=== PATIENT | female | born 1930 | race Caucasian/White ===

== ENCOUNTER 2016-11-25 06:34 | Emergency (ER) | payer MEDICARE, BC ==
[2016-11-25] MEDS ORDERED: Diltiazem 25 MG/5 ML SDV IVPUSH ONE ×2 (06:50→07:17)
[2016-11-25] MEDS ORDERED: Digoxin 500 MCG/2 ML Amp IVPUSH ONE (07:15)
[2016-11-25] MEDS ORDERED: Potassium Chloride 20 MEQ Tab.ER PO ONE (07:39)
--- NOTE | 2016-11-25 07:40 | EDM.PDOC ---
<Herminio Dash - Last Filed: 12/04/16 06:59> ED HISTORY OF PRESENT ILLNESS - General Chief Complaint: Chest Pain Stated Complaint: CHEST PAIN Time Seen by Provider: 11/25/16 06:34 - Related Data Allergies/ADRs: Allergies Allergy/AdvReac Type Severity Reaction Status Date / Time adhesive Allergy Intermediate Hives Verified 09/07/16 03:16 striadril eye cream Allergy Intermediate Swollen Uncoded 10/01/15 11:33 Eyes Home Meds: Home Meds Aspirin [Ecotrin] 81 mg PO DAILY 09/28/15 [History] Budesonide/Formoterol [Symbicort 160-4.5 MCG] 2 puff INH BID 09/28/15 [History] Calcium Citrate 600 mg PO BID 09/28/15 [History] Cholecalciferol (Vitamin D3) [Vitamin D3] 1,000 units PO BID 09/28/15 [History] Hydrochlorothiazide 25 mg PO DAILY 09/28/15 [History] Levothyroxine [Synthroid] 50 mcg PO DAILY 09/28/15 [History] Lovastatin [Mevacor] 40 mg PO DAILY 09/28/15 [History] Potassium Chloride [Klor-Con 10] 10 meq PO DAILY 09/07/16 [History] Apixaban [Eliquis] 2.5 mg PO BID #60 tablet 09/09/16 [Rx] Diltiazem HCl [Cardizem] 120 mg PO DAILY #30 tablet 09/09/16 [Rx] Atenolol 25 mg PO BID #30 tablet 09/15/16 [Rx] Digoxin [Lanoxin] 125 mcg PO DAILY #15 tablet 11/25/16 [Rx] Past Medical History HEENT History: Reports: Hard of hearing, Impaired vision Other HEENT History: wears glasses, tongue lesions and papilloma Cardiovascular History: Reports: Afib, High cholesterol, Hypertension, Other ( see below) Other Cardiovascular History: secundum atrial septal defect, chronic venous insufficiency, varicose veins Respiratory History: Reports: COPD, Sleep apnea Other Respiratory History: uses CPAP Gastrointestinal History: Reports: GERD, Hemorrhoids Genitourinary History: Reports: Urinary incontinence Other Genitourinary History: hematuria SOAPSTONER History: Reports: Other (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 Psychiatric History: Reports: Dementia Endocrine/Metabolic History: Reports: Hypothyroidism, Obesity/BMI 30+ Hematologic History: Reports: Blood transfusion(s) Other Dermatologic History: rash to hands, - Infectious Disease History Infectious Disease History: Reports: Measles, MRSA, Mumps - Past Surgical History HEENT Surgical History: Reports: Cataract surgery GI Surgical History: Reports: Appendectomy, Cholecystectomy Female Surgical History: Reports: Breast biopsy, Hysterectomy Other Endocrine Surgeries/Procedures: thyroid lesion Neurological Surgical History: Reports: Lumbar spine Musculoskeletal Surgical History: Reports: Carpal tunnel, Knee replacement Oncologic Surgical History: Reports: Biopsy of breast Social & Family History - Family History Family Medical History: Noncontributory Endocrine/Metabolic: Reports: Diabetes, type I Oncologic: Reports: Bladder, Lung, Pancreatic - Tobacco Use Smoking Status *Q: Never Smoker Second Hand Smoke Exposure: No - Caffeine Use Caffeine Use: Reports: Coffee - Recreational Drug Use Recreational Drug Use: No Drug Use in Last 12 Months: No - Living Situation & Occupation Living situation: Reports: , with spouse 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8) fl MCH 28.8 (25.6-32.2) pg MCHC 32.5 (32.2-35.5) g/dl RDW Std Deviation 44.7 (36.4-46.3) fL Plt Count 185 (182-369) K/mm3 MPV 10.7 (9.4-12.3) fl Neutrophils % (Manual) 58 (40-60) % Band Neutrophils % 0 (0-10) % Lymphocytes % (Manual) 32 (20-40) % Atypical Lymphs % 0 % Monocytes % (Manual) 10 (2-10) % Eosinophils % (Manual) 0 L (0.7-5.8) % Basophils % (Manual) 0 L (0.1-1.2) Platelet Estimate Adequate RBC Morph Comment Normal Sodium 142 (136-145) mEq/L Potassium 3.3 L (3.5-5.1) mEq/L Chloride 103 (98-107) mEq/L Carbon Dioxide 29 (21-32) mEq/L Anion Gap 13.3 (5-15) BUN 13 (7-18) mg/dL Creatinine 0.8 (0.55-1.02) mg/dL Est Cr Clr Drug Dosing TNP Estimated GFR (MDRD) > 60 (>60) mL/min BUN/Creatinine Ratio 16.3 (14-18) Glucose 108 (83-115) mg/dL Calcium 9.8 (8.5-10.1) mg/dL Magnesium 2.2 (1.8-2.4) mg/dl Total Bilirubin 1.7 H (0.2-1.0) mg/dL AST 20 (15-37) U/L ALT 28 (14-59) U/L Alkaline Phosphatase 77 (46-116) U/L Troponin I < 0.017 (0.00-0.056) ng/mL B-Natriuretic Peptide 132 H (0-100) pg/mL Total Protein 7.7 (6.4-8.2) g/dl Albumin 3.9 (3.4-5.0) g/dl Globulin 3.8 gm/dL Albumin/Globulin Ratio 1.0 (1-2) Meds: Medications Discontinued Medications Generic Name Dose Route Start Last Admin Trade Name Freq PRN Reason Stop Dose Admin Digoxin 500 mcg 11/25/16 07:15 11/25/16 07:44 Lanoxin IVPUSH 11/25/16 07:16 500 mcg ONETIME ONE Administration Diltiazem HCl 20 mg 11/25/16 06:50 11/25/16 06:55 Diltiazem IVPUSH 11/25/16 06:51 10 mg ONETIME ONE Administration Diltiazem HCl 10 mg 11/25/16 07:17 11/25/16 07:27 Diltiazem IVPUSH 11/25/16 07:18 10 mg ONETIME ONE Administration Potassium Chloride 20 meq 11/25/16 07:39 11/25/16 07:44 Klor-Con M20 PO 11/25/16 07:40 20 meq ONETIME ONE Administration - Re-Assessments/Exams Free Text/Narrative Re-Assessment/Exam: 11/25/16 09:[address] Cerna at change of shift. Labs are back. White count of 9.50 with a normal differential hemoglobin is 14.7 hematocrit is 45.2 platelets 185,000. Chemistry shows a sodium of 142 potassium of 3.3. BP was 132 bilirubin is mildly elevated 1.7 suggesting Gilbert`s syndrome. Patient has now converted back to sinus rhythm at 62 per minute BP 111/55. Plan will be to discharge her on low-dose digoxin 0.0625 mg once daily in addition to her current medications to see if we can maintain sinus rhythm. Departure - Departure Time of Disposition: 09:08 Disposition: Home, Self-Care 01 Condition: fair Clinical Impression: Paroxysmal atrial fibrillation with rapid ventricular response Prescriptions: Digoxin [Lanoxin] 125 mcg PO DAILY #15 tablet Instructions: Atrial Fibrillation, [id number] Referrals: Adam Street MD [Primary Care Provider] - Forms: ED Department Discharge Additional Instructions: The above patient was seen for Rehab therapy. The following progress is noted in regards to this patient. Patient was seen for a total of visit(s). Date of first visit: Date of last visit: Patient was treated for: Treatment Included: ED HISTORY OF PRESENT ILLNESS - General Chief Complaint: Chest Pain Stated Complaint: CHEST PAIN - Related Data Allergies/ADRs: Allergies Allergy/AdvReac Type Severity Reaction Status Date / Time adhesive Allergy Intermediate Hives Verified 09/07/16 03:16 striadril eye cream Allergy Intermediate Swollen Uncoded 10/01/15 11:33 Eyes Home Meds: Home Meds Aspirin [Ecotrin] 81 mg PO DAILY 09/28/15 [History] Budesonide/Formoterol [Symbicort 160-4.5 MCG] 2 puff INH BID 09/28/15 [History] Calcium Citrate 600 mg PO BID 09/28/15 [History] Cholecalciferol (Vitamin D3) [Vitamin D3] 1,000 units PO BID 09/28/15 [History] Hydrochlorothiazide 25 mg PO DAILY 09/28/15 [History] Levothyroxine [Synthroid] 50 mcg PO DAILY 09/28/15 [History] Lovastatin [Mevacor] 40 mg PO DAILY 09/28/15 [History] Potassium Chloride [Klor-Con 10] 10 meq PO DAILY 09/07/16 [History] Apixaban [Eliquis] 2.5 mg PO BID #60 tablet 09/09/16 [Rx] Diltiazem HCl [Cardizem] 120 mg PO DAILY #30 tablet 09/09/16 [Rx] Atenolol 25 mg PO BID #30 tablet 09/15/16 [Rx] Digoxin [Lanoxin] 125 mcg PO DAILY #15 tablet 11/25/16 [Rx] Past Medical History HEENT History: Reports: Hard of hearing, Impaired vision Other HEENT History: wears glasses, tongue lesions and papilloma Cardiovascular History: Reports: Afib, High cholesterol, Hypertension, Other ( see below) Other Cardiovascular History: secundum atrial septal defect, chronic venous insufficiency, varicose veins Respiratory History: Reports: COPD, Sleep apnea Other Respiratory History: uses CPAP Gastrointestinal History: Reports: GERD, Hemorrhoids Genitourinary History: Reports: Urinary incontinence Other Genitourinary History: hematuria SOAPSTONER History: Reports: Other (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 Psychiatric History: Reports: Dementia Endocrine/Metabolic History: Reports: Hypothyroidism, Obesity/BMI 30+ Hematologic History: Reports: Blood transfusion(s) Other Dermatologic History: rash to hands, - Infectious Disease History Infectious Disease History: Reports: Measles, MRSA, Mumps - Past Surgical History HEENT Surgical History: Reports: Cataract surgery GI Surgical History: Reports: Appendectomy, Cholecystectomy Female Surgical History: Reports: Breast biopsy, Hysterectomy Other Endocrine Surgeries/Procedures: thyroid lesion Neurological Surgical History: Reports: Lumbar spine Musculoskeletal Surgical History: Reports: Carpal tunnel, Knee replacement Oncologic Surgical History: Reports: Biopsy of breast Social & Family History - Family History Family Medical History: Noncontributory Endocrine/Metabolic: Reports: Diabetes, type I Oncologic: Reports: Bladder, Lung, Pancreatic - Tobacco Use Smoking Status *Q: Never Smoker Second Hand Smoke Exposure: No - Caffeine Use Caffeine Use: Reports: Coffee - Recreational Drug Use Recreational Drug Use: No Drug Use in Last 12 Months: No - Living Situation & Occupation Living situation: Reports: , with spouse Occupation: retired Course - Vital Signs Last Recorded V/S: Last Vital Signs Temp 36.2 C 11/25/16 06:42 Pulse 132 H 11/25/16 07:44 Resp 24 H 11/25/16 06:42 BP 135/71 11/25/16 06:42 Pulse Ox 93 L 11/25/16 06:42 - Orders/Labs/Meds Orders: Active Orders 24 hr Category Date Time Status EKG 12 Lead [EKG Documentation Completion] [RC] STAT Care 11/25/16 06:53 Active Chest 1V Frontal [CR] Stat Exams 11/25/16 07:00 Taken Labs: Laboratory Tests 11/25/16 11/25/16 11/25/16 Range/Units 06:00 06:40 06:40 WBC 9.50 (3.98-10.04) K/mm3 RBC 5.11 (3.98-5.22) M/mm3 Hgb 14.7 (11.2-15.7) gm/L Hct 45.2 H (34.1-44.9) % MCV 88.5 (79.4-94.8) fl MCH 28.8 (25.6-32.2) pg MCHC 32.5 (32.2-35.5) g/dl RDW Std Deviation 44.7 (36.4-46.3) fL Plt Count 185 (182-369) K/mm3 MPV 10.7 (9.4-12.3) fl Neutrophils % (Manual) 58 (40-60) % Band Neutrophils % 0 (0-10) % Lymphocytes % (Manual) 32 (20-40) % Atypical Lymphs % 0 % Monocytes % (Manual) 10 (2-10) % Eosinophils % (Manual) 0 L (0.7-5.8) % Basophils % (Manual) 0 L (0.1-1.2) Platelet Estimate Adequate RBC Morph Comment Normal Sodium 142 (136-145) mEq/L Potassium 3.3 L (3.5-5.1) mEq/L Chloride 103 (98-107) mEq/L Carbon Dioxide 29 (21-32) mEq/L Anion Gap 13.3 (5-15) BUN 13 (7-18) mg/dL Creatinine 0.8 (0.55-1.02) mg/dL Est Cr Clr Drug Dosing TNP Estimated GFR (MDRD) > 60 (>60) mL/min BUN/Creatinine Ratio 16.3 (14-18) Glucose 108 (83-115) mg/dL Calcium 9.8 (8.5-10.1) mg/dL Magnesium 2.2 (1.8-2.4) mg/dl Total Bilirubin 1.7 H (0.2-1.0) mg/dL AST 20 (15-37) U/L ALT 28 (14-59) U/L Alkaline Phosphatase 77 (46-116) U/L Troponin I < 0.017 (0.00-0.056) ng/mL B-Natriuretic Peptide 132 H (0-100) pg/mL Total Protein 7.7 (6.4-8.2) g/dl Albumin 3.9 (3.4-5.0) g/dl Globulin 3.8 gm/dL Albumin/Globulin Ratio 1.0 (1-2) Meds: Medications Discontinued Medications Generic Name Dose Route Start Last Admin Trade Name Pedroq PRN Reason Stop Dose Admin Digoxin 500 mcg 11/25/16 07:15 11/25/16 07:44 Lanoxin IVPUSH 11/25/16 07:16 500 mcg ONETIME ONE Administration Diltiazem HCl 20 mg 11/25/16 06:50 11/25/16 06:55 Diltiazem IVPUSH 11/25/16 06:51 10 mg ONETIME ONE Administration Diltiazem HCl 10 mg 11/25/16 07:17 11/25/16 07:27 Diltiazem IVPUSH 11/25/16 07:18 10 mg ONETIME ONE Administration Potassium Chloride 20 meq 11/25/16 07:39 11/25/16 07:44 Klor-Con M20 PO 11/25/16 07:40 20 meq ONETIME ONE Administration - Re-Assessments/Exams Free Text/Narrative Re-Assessment/Exam: 11/25/16 09:07 labs are back and we will a white count of 9.50 with a normal differential hemoglobin is 14.7 hematocrit is 45.2 platelets 185,000. Chemistry shows a sodium of 142 potassium of 3.3. BP was 132 bilirubin is mildly elevated 1.7 suggesting Gilbert`s syndrome. Patient is now converted back to sinus rhythm at 62 per minute BP 111/55. Plan will be to discharge her on low-dose digoxin 0.0625 mg once daily in addition to her current medications to see if we can maintain sinus rhythm. Departure - Departure Time of Disposition: :08 Disposition: Home, Self-Care 01 Condition: fair Clinical Impression: Paroxysmal atrial fibrillation with rapid ventricular response Prescriptions: Digoxin [Lanoxin] 125 mcg PO DAILY #15 tablet Forms: ED Department Discharge Evaluation in the emergency room this morning in regards to recurrent bouts of atrial fibrillation with a rapid heart rate. This is occurred 3 times in the last 3 months. Lab tests revealed only a borderline low potassium at 3.3 but otherwise was within normal limits. Heart rate was controlled initially with Cardiazem intravenous bolus medications 10 mg x2 doses. You're also given a dose of digoxin 0.5 mg IV. After another hour your heart converted back to regular sinus rhythm at 62 per minute. The only changes to medications and be the addition of low-dose digoxin or Lanoxin tablet one half 0.125 mg tablet daily to try and prevent her from going back into atrial fibrillation. Followup with Dr. Richard on as planned. He is okay to stay off alcohol is as planned today and tomorrow to allow dental procedure in 2 days time. <Emerson Cerna - Last Filed: 12/08/16 07:18> ED HISTORY OF PRESENT ILLNESS - History of Present Illness INITIAL COMMENTS - FREE TEXT/NARRATIVE: 86-year-old female presents emergency room with palpitations chest discomfort. Onset of this is sometime during the night. He has a history of fibrillation and is treated on Eliquis. Discomfort is substernal does not radiate no associated nausea vomiting diaphoresis or shortness of breath. Patient does not have a worsening cough. Patient felt well yesterday. ED ROS GENERAL - Review of Systems Review Of Systems: See Below Constitutional: Reports: no symptoms HEENT: Reports: No symptoms Respiratory: Reports: No Symptoms Cardiovascular: Reports: Chest pain, Palpitations GI/Abdominal: Reports: No symptoms : Reports: no symptoms Neurological: Reports: No Symptoms ED EXAM, GENERAL - Physical Exam Exam: See Below Exam Limited By: No limitations General Appearance: alert, no apparent distress Head: atraumatic, normocephalic Neck: normal inspection, supple, non-tender, full range of motion. No: lymphadenopathy (L), lymphadenopathy (R) Respiratory/Chest: no respiratory distress, lungs clear, normal breath sounds Cardiovascular: no murmur, irregularly irregular GI/Abdominal: normal bowel sounds, soft, non tender, no organomegaly, no distention, no abnormal bruit, no mass
--- NOTE | 2016-11-25 07:44 | EDM.PDOC ---
[id number] CHEST PAIN Time Seen by Provider: 11/25/16 06:47 - History of Present Illness INITIAL COMMENTS - FREE TEXT/NARRATIVE: 86-year-old female presents emergency room with chest discomfort palpitations and a rapid heartbeat. Patient has had problems with this in the past she has a known diagnosis of recurrent atrial fibrillation she is on Eliquis. However she is postop her Eliquis today for a dental procedure coming up in the near future. At this time the patient has some chest discomfort she says this is getting better about the time she comes in the emergency room. She is not sure exactly what time this started but it was sometime after midnight. It is not associated with nausea vomiting no appreciable shortness of breath. Patient has not had worsening swelling of her lower extremities. - Related Data Allergies/ADRs: Allergies Allergy/AdvReac Type Severity Reaction Status Date / Time adhesive Allergy Intermediate Hives Verified 09/07/16 03:16 striadril eye cream Allergy Intermediate Swollen Uncoded 10/01/15 11:33 Eyes Home Meds: Home Meds Aspirin [Ecotrin] 81 mg PO DAILY 09/28/15 [History] Budesonide/Formoterol [Symbicort 160-4.5 MCG] 2 puff INH BID 09/28/15 [History] Calcium Citrate 600 mg PO BID 09/28/15 [History] Cholecalciferol (Vitamin D3) [Vitamin D3] 1,000 units PO BID 09/28/15 [History] Hydrochlorothiazide 25 mg PO DAILY 09/28/15 [History] Levothyroxine [Synthroid] 50 mcg PO DAILY 09/28/15 [History] Lovastatin [Mevacor] 40 mg PO DAILY 09/28/15 [History] Potassium Chloride [Klor-Con 10] 10 meq PO DAILY 09/07/16 [History] Apixaban [Eliquis] 2.5 mg PO BID #60 tablet 09/09/16 [Rx] Diltiazem HCl [Cardizem] 120 mg PO DAILY #30 tablet 09/09/16 [Rx] Atenolol 25 mg PO BID #30 tablet 09/15/16 [Rx] Digoxin [Lanoxin] 125 mcg PO DAILY #15 tablet 11/25/16 [Rx] Past Medical History HEENT History: Reports: Hard of hearing, Impaired vision Other HEENT History: wears glasses, tongue lesions and papilloma Cardiovascular History: Reports: Afib, High cholesterol, Hypertension, Other ( see below) Other Cardiovascular History: secundum atrial septal defect, chronic venous insufficiency, varicose veins Respiratory History: Reports: COPD, Sleep apnea Other Respiratory History: uses CPAP Gastrointestinal History: Reports: GERD, Hemorrhoids Genitourinary History: Reports: Urinary incontinence Other Genitourinary History: hematuria 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 Psychiatric History: Reports: Dementia Endocrine/Metabolic History: Reports: Hypothyroidism, Obesity/BMI 30+ Hematologic History: Reports: Blood transfusion(s) Other Dermatologic History: rash to hands, - Infectious Disease History Infectious Disease History: Reports: Measles, MRSA, Mumps - Past Surgical History HEENT Surgical History: Reports: Cataract surgery GI Surgical History: Reports: Appendectomy, Cholecystectomy Female Surgical History: Reports: Breast biopsy, Hysterectomy Other Endocrine Surgeries/Procedures: thyroid lesion Neurological Surgical History: Reports: Lumbar spine Musculoskeletal Surgical History: Reports: Carpal tunnel, Knee replacement Oncologic Surgical History: Reports: Biopsy of breast Social & Family History - Family History Family Medical History: Noncontributory Endocrine/Metabolic: Reports: Diabetes, type I Oncologic: Reports: Bladder, Lung, Pancreatic - Tobacco Use Smoking Status *Q: Never Smoker Second Hand Smoke Exposure: No - Caffeine Use Caffeine Use: Reports: Coffee - Recreational Drug Use Recreational Drug Use: No Drug Use in Last 12 Months: No - Living Situation & Occupation Living situation: Reports: , with spouse Occupation: retired ED ROS GENERAL - Review of Systems Review Of Systems: See Below Constitutional: Reports: no symptoms HEENT: Reports: No symptoms Respiratory: Reports: No Symptoms Cardiovascular: Reports: Chest pain, Palpitations. Denies: Syncope GI/Abdominal: Reports: No symptoms : Reports: no symptoms Neurological: Reports: No Symptoms ED EXAM, GENERAL - Physical Exam Exam: See Below Exam Limited By: No limitations General Appearance: alert, no apparent distress, other Head: atraumatic, normocephalic Neck: normal inspection, supple, non-tender, full range of motion. No: lymphadenopathy (L), lymphadenopathy (R) Respiratory/Chest: no respiratory distress, lungs clear, normal breath sounds Cardiovascular: no murmur, tachycardia, irregularly irregular GI/Abdominal: normal bowel sounds, soft, non tender Course - Vital Signs Last Recorded V/S: Last Vital Signs Temp 36.2 C 11/25/16 06:42 Pulse 63 11/25/16 10:00 Resp 18 11/25/16 10:00 BP 108/58 L 11/25/16 10:00 Pulse Ox 93 L 11/25/16 10:00 - Orders/Labs/Meds Labs: Laboratory Tests 11/25/16 11/25/16 11/25/16 Range/Units 06:00 06:40 06:40 WBC 9.50 (3.98-10.04) K/mm3 RBC 5.11 (3.98-5.22) M/mm3 Hgb 14.7 (11.2-15.7) gm/L Hct 45.2 H (34.1-44.9) % MCV 88.5 (79.4-94.8) fl MCH 28.8 (25.6-32.2) pg MCHC 32.5 (32.2-35.5) g/dl RDW Std Deviation 44.7 (36.4-46.3) fL Plt Count 185 (182-369) K/mm3 MPV 10.7 (9.4-12.3) fl Neutrophils % (Manual) 58 (40-60) % Band Neutrophils % 0 (0-10) % Lymphocytes % (Manual) 32 (20-40) % Atypical Lymphs % 0 % Monocytes % (Manual) 10 (2-10) % Eosinophils % (Manual) 0 L (0.7-5.8) % Basophils % (Manual) 0 L (0.1-1.2) Platelet Estimate Adequate RBC Morph Comment Normal Sodium 142 (136-145) mEq/L Potassium 3.3 L (3.5-5.1) mEq/L Chloride 103 (98-107) mEq/L Carbon Dioxide 29 (21-32) mEq/L Anion Gap 13.3 (5-15) BUN 13 (7-18) mg/dL Creatinine 0.8 (0.55-1.02) mg/dL Est Cr Clr Drug Dosing TNP Estimated GFR (MDRD) > 60 (>60) mL/min BUN/Creatinine Ratio 16.3 (14-18) Glucose 108 (83-115) mg/dL Calcium 9.8 (8.5-10.1) mg/dL Magnesium 2.2 (1.8-2.4) mg/dl Total Bilirubin 1.7 H (0.2-1.0) mg/dL AST 20 (15-37) U/L ALT 28 (14-59) U/L Alkaline Phosphatase 77 (46-116) U/L Troponin I < 0.017 (0.00-0.056) ng/mL B-Natriuretic Peptide 132 H (0-100) pg/mL Total Protein 7.7 (6.4-8.2) g/dl Albumin 3.9 (3.4-5.0) g/dl Globulin 3.8 gm/dL Albumin/Globulin Ratio 1.0 (1-2) Meds: Medications Discontinued Medications Generic Name Dose Route Start Last Admin Trade Name Freq PRN Reason Stop Dose Admin Digoxin 500 mcg 11/25/16 07:15 11/25/16 07:44 Lanoxin IVPUSH 11/25/16 07:16 500 mcg ONETIME ONE Administration Diltiazem HCl 20 mg 11/25/16 06:50 11/25/16 06:55 Diltiazem IVPUSH 11/25/16 06:51 10 mg ONETIME ONE Administration Diltiazem HCl 10 mg 11/25/16 07:17 11/25/16 07:27 Diltiazem IVPUSH 11/25/16 07:18 10 mg ONETIME ONE Administration Potassium Chloride 20 meq 11/25/16 07:39 11/25/16 07:44 Klor-Con M20 PO 11/25/16 07:40 20 meq ONETIME ONE Administration - Re-Assessments/Exams Free Text/Narrative Re-Assessment/Exam: 11/25/16 07:46 Started on a diltiazem push 10 mg followed by another 10 mg of tolerated at this point is change of shift, further evaluation and disposition per Dr. Dash Departure - Departure Time of Disposition: 10:00 Disposition: Home, Self-Care 01 Clinical Impression: Paroxysmal atrial fibrillation with rapid ventricular response Prescriptions: Digoxin [Lanoxin] 125 mcg PO DAILY #15 tablet Instructions: Atrial Fibrillation, [id number] Referrals: Adam Street MD [Primary Care Provider] - Forms: ED Department Discharge Additional Instructions: The above patient was seen for Rehab therapy. The following progress is noted in regards to this patient. Patient was seen for a total of visit(s). Date of first visit: Date of last visit: Patient was treated for: Treatment Included: ED HISTORY OF PRESENT ILLNESS - General Chief Complaint: Chest Pain Stated Complaint: CHEST PAIN - Related Data Allergies/ADRs: Allergies Allergy/AdvReac Type Severity Reaction Status Date / Time adhesive Allergy Intermediate Hives Verified 09/07/16 03:16 striadril eye cream Allergy Intermediate Swollen Uncoded 10/01/15 11:33 Eyes Home Meds: Home Meds Aspirin [Ecotrin] 81 mg PO DAILY 09/28/15 [History] Budesonide/Formoterol [Symbicort 160-4.5 MCG] 2 puff INH BID 09/28/15 [History] Calcium Citrate 600 mg PO BID 09/28/15 [History] Cholecalciferol (Vitamin D3) [Vitamin D3] 1,000 units PO BID 09/28/15 [History] Hydrochlorothiazide 25 mg PO DAILY 09/28/15 [History] Levothyroxine [Synthroid] 50 mcg PO DAILY 09/28/15 [History] Lovastatin [Mevacor] 40 mg PO DAILY 09/28/15 [History] Potassium Chloride [Klor-Con 10] 10 meq PO DAILY 09/07/16 [History] Apixaban [Eliquis] 2.5 mg PO BID #60 tablet 09/09/16 [Rx] Diltiazem HCl [Cardizem] 120 mg PO DAILY #30 tablet 09/09/16 [Rx] Atenolol 25 mg PO BID #30 tablet 09/15/16 [Rx] Digoxin [Lanoxin] 125 mcg PO DAILY #15 tablet 11/25/16 [Rx] Past Medical History HEENT History: Reports: Hard of hearing, Impaired vision Other HEENT History: wears glasses, tongue lesions and papilloma Cardiovascular History: Reports: Afib, High cholesterol, Hypertension, Other ( see below) Other Cardiovascular History: secundum atrial septal defect, chronic venous insufficiency, varicose veins Respiratory History: Reports: COPD, Sleep apnea Other Respiratory History: uses CPAP Gastrointestinal History: Reports: GERD, Hemorrhoids Genitourinary History: Reports: Urinary incontinence Other Genitourinary History: hematuria 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 Psychiatric History: Reports: Dementia Endocrine/Metabolic History: Reports: Hypothyroidism, Obesity/BMI 30+ Hematologic History: Reports: Blood transfusion(s) Other Dermatologic History: rash to hands, - Infectious Disease History Infectious Disease History: Reports: Measles, MRSA, Mumps - Past Surgical History HEENT Surgical History: Reports: Cataract surgery GI Surgical History: Reports: Appendectomy, Cholecystectomy Female Surgical History: Reports: Breast biopsy, Hysterectomy Other Endocrine Surgeries/Procedures: thyroid lesion Neurological Surgical History: Reports: Lumbar spine Musculoskeletal Surgical History: Reports: Carpal tunnel, Knee replacement Oncologic Surgical History: Reports: Biopsy of breast Social & Family History - Family History Family Medical History: Noncontributory Endocrine/Metabolic: Reports: Diabetes, type I Oncologic: Reports: Bladder, Lung, Pancreatic - Tobacco Use Smoking Status *Q: Never Smoker Second Hand Smoke Exposure: No - Caffeine Use Caffeine Use: Reports: Coffee - Recreational Drug Use Recreational Drug Use: No Drug Use in Last 12 Months: No - Living Situation & Occupation Living situation: Reports: , with spouse Occupation: retired Course - Vital Signs Last Recorded V/S: Last Vital Signs Temp 36.2 C 11/25/16 06:42 Pulse 132 H 11/25/16 07:44 Resp 24 H 11/25/16 06:42 BP 135/71 11/25/16 06:42 Pulse Ox 93 L 11/25/16 06:42 - Orders/Labs/Meds Orders: Active Orders 24 hr Category Date Time Status EKG 12 Lead [EKG Documentation Completion] [RC] STAT Care 11/25/16 06:53 Active Chest 1V Frontal [CR] Stat Exams 11/25/16 07:00 Taken Labs: Laboratory Tests 11/25/16 11/25/16 11/25/16 Range/Units 06:00 06:40 06:40 WBC 9.50 (3.98-10.04) K/mm3 RBC 5.11 (3.98-5.22) M/mm3 Hgb 14.7 (11.2-15.7) gm/L Hct 45.2 H (34.1-44.9) % MCV 88.5 (79.4-94.8) fl MCH 28.8 (25.6-32.2) pg MCHC 32.5 (32.2-35.5) g/dl RDW Std Deviation 44.7 (36.4-46.3) fL Plt Count 185 (182-369) K/mm3 MPV 10.7 (9.4-12.3) fl Neutrophils % (Manual) 58 (40-60) % Band Neutrophils % 0 (0-10) % Lymphocytes % (Manual) 32 (20-40) % Atypical Lymphs % 0 % Monocytes % (Manual) 10 (2-10) % Eosinophils % (Manual) 0 L (0.7-5.8) % Basophils % (Manual) 0 L (0.1-1.2) Platelet Estimate Adequate RBC Morph Comment Normal Sodium 142 (136-145) mEq/L Potassium 3.3 L (3.5-5.1) mEq/L Chloride 103 (98-107) mEq/L Carbon Dioxide 29 (21-32) mEq/L Anion Gap 13.3 (5-15) BUN 13 (7-18) mg/dL Creatinine 0.8 (0.55-1.02) mg/dL Est Cr Clr Drug Dosing TNP Estimated GFR (MDRD) > 60 (>60) mL/min BUN/Creatinine Ratio 16.3 (14-18) Glucose 108 (83-115) mg/dL Calcium 9.8 (8.5-10.1) mg/dL Magnesium 2.2 (1.8-2.4) mg/dl Total Bilirubin 1.7 H (0.2-1.0) mg/dL AST 20 (15-37) U/L ALT 28 (14-59) U/L Alkaline Phosphatase 77 (46-116) U/L Troponin I < 0.017 (0.00-0.056) ng/mL B-Natriuretic Peptide 132 H (0-100) pg/mL Total Protein 7.7 (6.4-8.2) g/dl Albumin 3.9 (3.4-5.0) g/dl Globulin 3.8 gm/dL Albumin/Globulin Ratio 1.0 (1-2) Meds: Medications Discontinued Medications Generic Name Dose Route Start Last Admin Trade Name Courtney PRN Reason Stop Dose Admin Digoxin 500 mcg 11/25/16 07:15 11/25/16 07:44 Lanoxin IVPUSH 11/25/16 07:16 500 mcg ONETIME ONE Administration Diltiazem HCl 20 mg 11/25/16 06:50 11/25/16 06:55 Diltiazem IVPUSH 11/25/16 06:51 10 mg ONETIME ONE Administration Diltiazem HCl 10 mg 11/25/16 07:17 11/25/16 07:27 Diltiazem IVPUSH 11/25/16 07:18 10 mg ONETIME ONE Administration Potassium Chloride 20 meq 11/25/16 07:39 11/25/16 07:44 Klor-Con M20 PO 11/25/16 07:40 20 meq ONETIME ONE Administration - Re-Assessments/Exams Free Text/Narrative Re-Assessment/Exam: 11/25/16 09:07 labs are back and we will a white count of 9.50 with a normal differential hemoglobin is 14.7 hematocrit is 45.2 platelets 185,000. Chemistry shows a sodium of 142 potassium of 3.3. BP was 132 bilirubin is mildly elevated 1.7 suggesting Gilbert`s syndrome. Patient is now converted back to sinus rhythm at 62 per minute BP 111/55. Plan will be to discharge her on low-dose digoxin 0.0625 mg once daily in addition to her current medications to see if we can maintain sinus rhythm. Departure - Departure Time of Disposition: 09:08 Disposition: Home, Self-Care 01 Condition: fair Clinical Impression: Paroxysmal atrial fibrillation with rapid ventricular response Prescriptions: Digoxin [Lanoxin] 125 mcg PO DAILY #15 tablet Forms: ED Department Discharge Evaluation in the emergency room this morning in regards to recurrent bouts of atrial fibrillation with a rapid heart rate. This is occurred 3 times in the last 3 months. Lab tests revealed only a borderline low potassium at 3.3 but otherwise was within normal limits. Heart rate was controlled initially with Cardiazem intravenous bolus medications 10 mg x2 doses. You're also given a dose of digoxin 0.5 mg IV. After another hour your heart converted back to regular sinus rhythm at 62 per minute. The only changes to medications and be the addition of low-dose digoxin or Lanoxin tablet one half 0.125 mg tablet daily to try and prevent her from going back into atrial fibrillation. Followup with Dr. Richard on as planned. He is okay to stay off alcohol is as planned today and tomorrow to allow dental procedure in 2 days time.
--- NOTE | 2016-11-25 09:25 | CR ---
Chest: Frontal view of the chest was obtained. Comparison: Previous chest x-ray of 09/15/16. Heart size and mediastinum are normal. Lungs are clear with no acute infiltrates. There is the appearance of a chronic rotator cuff tear within the right shoulder. Mild degenerative change and scoliosis is present within the spine. Impression: 1. Incidental findings. Nothing acute is seen on frontal chest x-ray. Diagnostic code #2
[2016-11-25 10:20] VITALS: BP 108/58
== END 2016-11-25 10:00 | disposition home or self-care (01) ==
LOC: JD.ED 06:34
DX: I48.91 Unspecified atrial fibrillation (principal); I10 Essential (primary) hypertension; E78.00 Pure hypercholesterolemia, unspecified; J44.9 Chronic obstructive pulmonary disease, unspecified; G47.30 Sleep apnea, unspecified; K21.9 Gastro-esophageal reflux disease without esophagitis; M19.90 Unspecified osteoarthritis, unspecified site; E03.9 Hypothyroidism, unspecified; E66.9 Obesity, unspecified; Z68.30 Body mass index [BMI] 30.0-30.9, adult; F03.90 Unspecified dementia, unspecified severity, without behavioral disturbance, psychotic disturbance, mood disturbance, and anxiety; Z90.49 Acquired absence of other specified parts of digestive tract; Z90.710 Acquired absence of both cervix and uterus; Z96.659 Presence of unspecified artificial knee joint; Z98.49 Cataract extraction status, unspecified eye; Z79.899 Other long term (current) drug therapy; Z79.82 Long term (current) use of aspirin
CPT/HCPCS: 36415; 71010; 80053; 83735; 83880; 84484; 85025; 93005; 96374; 96375; 96376; 99285; A9270; J1160; 99284; J3490

== ENCOUNTER 2016-12-27 17:38 | Emergency (ER) | payer MEDICARE, BC ==
[2016-12-27 18:05] VITALS: BP 141/42
--- NOTE | 2016-12-27 18:08 | EDM.PDOC ---
ED HPI GENERAL MEDICAL PROBLEM - General Chief Complaint: Upper Extremity Injury/Pain Stated Complaint: R HAND PAIN Time Seen by Provider: 12/27/16 18:07 Source of Information: Reports: Patient History Limitations: Reports: No Limitations - History of Present Illness INITIAL COMMENTS - FREE TEXT/NARRATIVE: 86-year-old female presents to the ED for evaluation of acute onset of severe right wrist and hand pain. Patient states when she went to bed last night she had no pain when she woke during the night to void she noticed pain in her right wrist and dorsal hand which is gradually intensified as the day has gone on. He is at this point tenderness but not to make her cry. No history of gout or pseudogout. No history of trauma to the wrist or hand. She is currently on Eliquis 5 mg twice a day for a recent blood clot identified in her right leg. Note she was already on Eliquis 2.5 mg twice a day when she developed the DVT. Pain is 9/10 in her right wrist. Nurse's appreciates that she feels warm all over as does the patient. She was sitting in her room with her jacket on and the temperature in the room was 80 according to her son. She denies any cough or sputum production. She denies any genitourinary complaints. Onset: Sudden (Right wrist pain occurred overnight) Onset Date: 12/27/16 Onset Time: 01:00 Duration: Hour(s):, Getting Worse Location: Reports: Upper Extremity, Right Quality: Reports: Ache, Burning, Throbbing Improves with: Reports: None Worsens with: Reports: Movement Context: Denies: Activity, Exercise, Lifting, Sick Contact, Trauma, Other Associated Symptoms: Reports: Fever/Chills, Malaise. Denies: Confusion, Chest Pain, Cough, cough w sputum, Diaphoresis (Feels chilled at times.), Headaches, Loss of Appetite, Nausea/Vomiting, Rash, Seizure, Shortness of Breath, Syncope, Weakness Treatments NET MANAGER: Reports: Other (see below) (None.) Right Hand Pain Score (Numeric/FACES): 10 - Related Data Allergies Allergy/AdvReac Type Severity Reaction Status Date / Time adhesive Allergy Intermediate Hives Verified 09/07/16 03:16 striadril eye cream Allergy Intermediate Swollen Uncoded 10/01/15 11:33 Eyes Home Meds: Home Meds Budesonide/Formoterol [Symbicort 160-4.5 MCG] 2 puff INH BID 09/28/15 [History] Calcium Citrate 600 mg PO BID 09/28/15 [History] Cholecalciferol (Vitamin D3) [Vitamin D3] 2,000 units PO DAILY 09/28/15 [History ] Hydrochlorothiazide 25 mg PO DAILY 09/28/15 [History] Levothyroxine [Synthroid] 50 mcg PO DAILY 09/28/15 [History] Lovastatin [Mevacor] 40 mg PO DAILY 09/28/15 [History] Potassium Chloride [Klor-Con 10] 20 meq PO DAILY 09/07/16 [History] Diltiazem HCl [Cardizem] 120 mg PO DAILY #30 tablet 09/09/16 [Rx] Digoxin [Lanoxin] 125 mcg PO DAILY #15 tablet 11/25/16 [Rx] Apixaban [Eliquis] 5 mg PO BID 12/27/16 [History] Atenolol 25 mg PO DAILY 12/27/16 [History] Potassium Chloride 10 meq PO BEDTIME 12/27/16 [History] Prednisone [IJD: predniSONE] 20 mg PO ASDIRECTED #12 tab 12/27/16 [Rx] Ubidecarenone [Coq-10] 100 mg PO DAILY 12/27/16 [History] oxyCODONE HCl/Acetaminophen [Percocet 5-325 mg Tablet] 1 each PO Q4H PRN #12 tablet 12/27/16 [Rx] Past Medical History HEENT History: Reports: Hard of Hearing, Impaired Vision Other HEENT History: wears glasses, tongue lesions and papilloma Cardiovascular History: Reports: Afib, High Cholesterol, Hypertension, Other ( See Below) Other Cardiovascular History: secundum atrial septal defect, chronic venous insufficiency, varicose veins Respiratory History: Reports: COPD, Sleep Apnea Other Respiratory History: uses CPAP Gastrointestinal History: Reports: GERD, Hemorrhoids Genitourinary History: Reports: Urinary Incontinence Other Genitourinary History: hematuria 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 Psychiatric History: Reports: Dementia Endocrine/Metabolic History: Reports: Hypothyroidism, Obesity/BMI 30+ Hematologic History: Reports: Blood Transfusion(s) Other Dermatologic History: rash to hands, - Infectious Disease History Infectious Disease History: Reports: Measles, MRSA, Mumps - Past Surgical History HEENT Surgical History: Reports: Cataract Surgery Female Surgical History: Reports: Breast Biopsy, Hysterectomy Neurological Surgical History: Reports: Lumbar Spine Musculoskeletal Surgical History: Reports: Carpal Tunnel, Knee Replacement Oncologic Surgical History: Reports: Biopsy of Breast Social & Family History - Family History Family Medical History: Noncontributory Endocrine/Metabolic: Reports: Diabetes, Type I Oncologic: Reports: Bladder, Lung, Pancreatic - Tobacco Use Smoking Status *Q: Never Smoker Second Hand Smoke Exposure: No - Caffeine Use Caffeine Use: Reports: Coffee - Recreational Drug Use Recreational Drug Use: No Drug Use in Last 12 Months: No - Living Situation & Occupation Living situation: Reports: , with Spouse Occupation: Retired Review of Systems - Review of Systems Review Of Systems: See Below Constitutional: Reports: Chills, Fever, Weakness. Denies: Diaphoresis Eyes: Reports: Decreased Acuity, Glasses. Denies: No Symptoms, Blindness, Blurred Vision, Drainage, Foreign Body Sensation Ears: Reports: No Symptoms Nose: Reports: No Symptoms Mouth/Throat: Reports: No Symptoms Respiratory: Reports: Shortness of Breath. Denies: Wheezing (On exertion to), Pleuritic Chest Pain, Cough, Sputum Cardiovascular: Reports: Edema (Chronic in both lower legs.). Denies: Chest Pain, Lightheadedness GI/Abdominal: Reports: Constipation (Occasional problems with constipation). Denies: Abdominal Pain Genitourinary: Reports: Other (Occasional problems with urinary frequency and incontinence post rest and urge component.) Musculoskeletal: Reports: Joint Pain (Present severe pain in her right wrist and hand. The pain in her back neck shoulders knees and hips.) Skin: Reports: No Symptoms Neurological: Reports: No Symptoms Psychiatric: Reports: No Symptoms Trauma Exam - Physical Exam Exam: See Below Exam Limited By: No Limitations General Appearance: Reports: Alert, WD/WN, Mild Distress Head: Reports: Atraumatic, Normocephalic Eyes: Bilateral Eye: Normal Inspection Throat/Mouth: Reports: Normal Inspection, Normal Lips, Normal Oropharynx Neck: Reports: Non-Tender, Normal Alignment. Denies: Limited Range of Motion Respiratory Exam: Reports: Lungs Clear, Normal Breath Sounds, Decreased Breath Sounds (Decreased of the lower 25% lung joseph.). Denies: Rales, Rhonchi, Wheezing Cardiovascular: Reports: Regular Rate, Rhythm, No Edema, No Murmur, No Rub. Denies: Normal Peripheral Pulses GI/Abdominal: Reports: Normal Bowel Sounds, Soft, Non-Tender, Pelvis Stable Extremities: No Evidence of Injury, Other (Attention to the right wrist reveals area of erythema and marked increased warmth at the carpal joints dorsally. Very limited adduction abduction flexion and extension of the wrist is evident as it causes exquisite pain. Strongly suspect Crystal up with me.) Neurologic: Reports: No Motor/Sensory Deficits, Alert, Normal Mood/Affect, Oriented x 3 Skin: Reports: Normal Color, Warm/Dry - [place] Coma Score Best Eye Response ([place]): (4) Open Spontaneously Best Verbal Response ([place]): (5) Oriented Best Motor Response ([place]): (6) Obeys Commands [place] Total: 15 Course - Vital Signs Last Recorded V/S: Last Vital Signs Temp 37.3 C 12/27/16 18:04 Pulse 73 12/27/16 18:04 Resp 24 H 12/27/16 18:04 BP 141/42 H 12/27/16 18:04 Pulse Ox 95 12/27/16 18:04 - Orders/Labs/Meds Orders: Active Orders 24 hr Category Date Time Status URINALYSIS W/MICROSCOPIC [UA W/MICROSCOPIC] [URIN] Stat Lab 12/27/16 18:14 Uncollected Colchicine [Colcrys] Med 12/28/16 18:14 Once 0.6 mg PO ONETIME ONE HYDROmorphone [Dilaudid] Med 12/27/16 19:12 Once 0.5 mg IVPUSH ONETIME ONE Sodium Chloride 0.9% [Normal Saline] 1,000 ml Med 12/27/16 18:15 Active IV ASDIRECTED Medication Orders Colchicine (Colcrys) 0.6 mg PO ONETIME ONE Stop: 12/28/16 18:15 Sodium Chloride (Normal Saline) 1,000 mls @ 100 mls/hr IV ASDIRECTED JAMA Last Admin: 12/27/16 18:37 Dose: 100 mls/hr Labs: Laboratory Tests 12/27/16 12/27/16 12/27/16 Range/Units 18:25 18:25 18:25 WBC 11.00 H (3.98-10.04) K/mm3 RBC 4.12 (3.98-5.22) M/mm3 Hgb 11.9 (11.2-15.7) gm/L Hct 36.6 (34.1-44.9) % MCV 88.8 (79.4-94.8) fl MCH 28.9 (25.6-32.2) pg MCHC 32.5 (32.2-35.5) g/dl RDW Std Deviation 45.2 (36.4-46.3) fL Plt Count 210 (182-369) K/mm3 MPV 9.9 (9.4-12.3) fl Neutrophils % (Manual) 71 H (40-60) % Band Neutrophils % 1 (0-10) % Lymphocytes % (Manual) 23 (20-40) % Atypical Lymphs % 0 % Monocytes % (Manual) 4 (2-10) % Eosinophils % (Manual) 1 (0.7-5.8) % Basophils % (Manual) 0 L (0.1-1.2) Platelet Estimate Adequate RBC Morph Comment Normal ESR 41 H (0-20) mm/hr Sodium 139 (136-145) mEq/L Potassium 3.3 L (3.5-5.1) mEq/L Chloride 101 (98-107) mEq/L Carbon Dioxide 29 (21-32) mEq/L Anion Gap 12.3 (5-15) BUN 14 (7-18) mg/dL Creatinine 0.9 (0.55-1.02) mg/dL Est Cr Clr Drug Dosing TNP Estimated GFR (MDRD) 60 (>60) mL/min BUN/Creatinine Ratio 15.6 (14-18) Glucose 128 H (83-115) mg/dL Uric Acid 5.0 (2.6-6.0) mg/dL Calcium 9.1 (8.5-10.1) mg/dL Total Bilirubin 1.3 H (0.2-1.0) mg/dL AST 17 (15-37) U/L ALT 26 (14-59) U/L Alkaline Phosphatase 73 (46-116) U/L C-Reactive Protein 2.5 H* (<1.0) mg/dL B-Natriuretic Peptide (0-100) pg/mL Total Protein 7.3 (6.4-8.2) g/dl Albumin 3.5 (3.4-5.0) g/dl Globulin 3.8 gm/dL Albumin/Globulin Ratio 0.9 L (1-2) //17 Range/Units 18:25 WBC (3.98-10.04) K/mm3 RBC (3.98-5.22) M/mm3 Hgb (11.2-15.7) gm/L Hct (34.1-44.9) % MCV (79.4-94.8) fl MCH (25.6-32.2) pg MCHC (32.2-35.5) g/dl RDW Std Deviation (36.4-46.3) fL Plt Count (182-369) K/mm3 MPV (9.4-12.3) fl Neutrophils % (Manual) (40-60) % Band Neutrophils % (0-10) % Lymphocytes % (Manual) (20-40) % Atypical Lymphs % % Monocytes % (Manual) (2-10) % Eosinophils % (Manual) (0.7-5.8) % Basophils % (Manual) (0.1-1.2) Platelet Estimate RBC Morph Comment ESR (0-20) mm/hr Sodium (136-145) mEq/L Potassium (3.5-5.1) mEq/L Chloride (98-107) mEq/L Carbon Dioxide (21-32) mEq/L Anion Gap (5-15) BUN (7-18) mg/dL Creatinine (0.55-1.02) mg/dL Est Cr Clr Drug Dosing Estimated GFR (MDRD) (>60) mL/min BUN/Creatinine Ratio (14-18) Glucose (83-115) mg/dL Uric Acid (2.6-6.0) mg/dL Calcium (8.5-10.1) mg/dL Total Bilirubin (0.2-1.0) mg/dL AST (15-37) U/L ALT (14-59) U/L Alkaline Phosphatase (46-116) U/L C-Reactive Protein (<1.0) mg/dL B-Natriuretic Peptide 100 (0-100) pg/mL Total Protein (6.4-8.2) g/dl Albumin (3.4-5.0) g/dl Globulin gm/dL Albumin/Globulin Ratio (1-2) Meds: Medications Generic Name Dose Route Start Last Admin Trade Name Courtney PRN Reason Stop Dose Admin Colchicine 0.6 mg 12/28/16 18:14 Colcrys PO 12/28/16 18:15 ONETIME ONE Sodium Chloride 1,000 mls @ 100 mls/hr 12/27/16 18:15 12/27/16 18:37 Normal Saline IV 100 mls/hr ASDIRECTED JAMA Administration Discontinued Medications Generic Name Dose Route Start Last Admin Trade Name Courtney PRN Reason Stop Dose Admin Hydromorphone HCl 0.5 mg 12/27/16 18:14 12/27/16 18:32 Dilaudid IVPUSH 12/27/16 18:15 0.5 mg ONETIME ONE Administration Methylprednisolone Sodium Succinate 125 mg 12/27/16 18:15 12/27/16 18:35 Solu-Medrol IVPUSH 12/27/16 18:16 125 mg ONETIME ONE Administration - Radiology Interpretation Free Text/Narrative:: 86-year-old female presents the ED with acute onset of severe right wrist and dorsal hand pain. She is unable to close her fingers to make a fist. Pain is mostly dorsal aspect of the right wrist involving the carpal bones. Areas very warm to palpation and erythematous. Strongly suspect Crystal up the likely gout. She has some mild dependent edema bilaterally and recently diagnosed with a DVT in the right calf. Her Eliquis was thus increased from 2.5 twice a day to 5 mg twice a day by her seed yeast operator. Plan routine labs including a sedimentation rate CRP and a uric acid level to be obtained. I will give her Dilaudid 0.5 mg IV for pain relief colchicine 0.6 mg by mouth and Solu-Medrol 125 mg IV. She cannot take anti-inflammatories due to being on Eliquis. - Re-Assessments/Exams Free Text/Narrative Re-Assessment/Exam: 12/27/16 19:01 lab work reveals a total white count of 11.0 with 71% neutrophils 1% band cells. Hemoglobin is low at 11.9 hematocrit is 36.6. Platelets 210,000. Chemistry shows a sodium of 139 potassium slightly low at 3.3 anion gap is 12.3 BUN is 14 glucose is 120. Creatinine is 0.9 within the GFR greater than 60. BNP is 100 bilirubin is mildly elevated 1.3 CRP is elevated at 2.5 uric acid is 5.0. Clinically she still exhibiting dowdy arthritis in her dorsal right hand and wrist. She'll be discharged home on prednisone 20 mg twice daily morning and supper for 4 days and then once a day in the morning for another 4 days to relieve inflammation. I will send Percocet tablets home with her 5 /325 one tablet every 64-6 hours as needed for pain relief. 12/27/16 19:13 still having a good deal of pain in the right wrist. We'll give her a second dose of Dilaudid 0.5 mg IV. Of note she has not yet received any colchicine per oral. She'll be given before her discharge to home. Departure - Departure Time of Disposition: 19:02 Disposition: Home, Self-Care 01 Condition: fair Clinical Impression: Acute gouty arthritis - Discharge Information Prescriptions: Prednisone [IJD: predniSONE] 20 mg PO ASDIRECTED #12 tab oxyCODONE HCl/Acetaminophen [Percocet 5-325 mg Tablet] 1 each PO Q4H PRN #12 tablet PRN Reason: pain relief. Referrals: Adam Street MD [Primary Care Provider] - Forms: ED Department Discharge Additional Instructions: Evaluation emergent today in regards to acute onset of inflammation in severe pain right wrist and dorsal hand that occurred overnight. This is characteristic of acute gout attack or gouty arthritis. This is deposition of gout crystals in the joint which causes inflammation in severe pain. Lab work done did not reveal any other signs of significant infection. Treatment was started in the emergency room with colchicine 0.6 x 1 g tablet orally and medication for pain and Solu-Medrol intravenously for relief of inflammation. Treatment at home will be prednisone 20 mg in the morning and then again at suppertime for 4 days and then one tablet orally in the morning for another 4 days. This is to reduce the inflammation in the wrist. He cannot take medicines such as Motrin or Aleve due to the fact that you're on blood thinner. He may take pain pills Percocet 5 325 one tablet every 4-6 hours for pain relief as needed. Usually pain should be much improved in the next 48 hours. Followup with her personal DrWinsome if any further problems occur or you are not markedly improved in 3 days' time.. - My Orders Last 24 Hours: My Active Orders 12/27/16 18:14 URINALYSIS W/MICROSCOPIC [UA W/MICROSCOPIC] [URIN] Stat 12/27/16 18:15 Sodium Chloride 0.9% [Normal Saline] 1,000 ml IV ASDIRECTED 12/27/16 19:12 HYDROmorphone [Dilaudid] 0.5 mg IVPUSH ONETIME ONE 12/28/16 18:14 Colchicine [Colcrys] 0.6 mg PO ONETIME ONE - Assessment/Plan Last 24 Hours: My Active Orders 12/27/16 18:14 URINALYSIS W/MICROSCOPIC [UA W/MICROSCOPIC] [URIN] Stat 12/27/16 18:15 Sodium Chloride 0.9% [Normal Saline] 1,000 ml IV ASDIRECTED 12/27/16 19:12 HYDROmorphone [Dilaudid] 0.5 mg IVPUSH ONETIME ONE 12/28/16 18:14 Colchicine [Colcrys] 0.6 mg PO ONETIME ONE
[2016-12-27] MEDS ORDERED: HYDROmorphone 0.5 MG/0.5 ML Syringe IVPUSH ONE ×2 (18:14→19:12)
[2016-12-27] MEDS ORDERED: methylPREDNISolone Sodium Succinate 125 MG/2 ML SDV IVPUSH ONE (18:15)
[2016-12-27] MEDS ORDERED: Sodium Chloride 0.9% 1,000 ML IV SCH (18:15)
[2016-12-27] MEDS ORDERED: Colchicine 0.6 MG Tab ONE (19:16)
[2016-12-28] MEDS ORDERED: Colchicine 0.6 MG Tab PO ONE (18:14)
== END 2016-12-27 19:48 | disposition home or self-care (01) ==
LOC: JD.ED 17:38
DX: M10.9 Gout, unspecified (principal); I48.91 Unspecified atrial fibrillation; E78.00 Pure hypercholesterolemia, unspecified; I10 Essential (primary) hypertension; J44.9 Chronic obstructive pulmonary disease, unspecified; K21.9 Gastro-esophageal reflux disease without esophagitis; M19.90 Unspecified osteoarthritis, unspecified site; E03.9 Hypothyroidism, unspecified; Z88.8 Allergy status to other drugs, medicaments and biological substances; Z79.899 Other long term (current) drug therapy; Z90.710 Acquired absence of both cervix and uterus; Z96.659 Presence of unspecified artificial knee joint; R06.02 Shortness of breath
CPT/HCPCS: 36415; 80053; 83880; 84550; 85025; 85652; 86140; 96361; 96374; 96375; 96376; 99284; A9270; J1170; J2930; J7040

== ENCOUNTER 2017-01-15 22:46 | Emergency (ER) | payer MEDICARE, BC ==
--- NOTE | 2017-01-15 22:56 | EDM.PDOC ---
ED HPI GENERAL MEDICAL PROBLEM - General Chief Complaint: Upper Extremity Injury/Pain Stated Complaint: ARM AND SHOULDER PAIN Time Seen by Provider: 01/15/17 22:56 - History of Present Illness INITIAL COMMENTS - FREE TEXT/NARRATIVE: 86-year-old female comes in the emergency room complaining of right shoulder pain and some abdominal discomfort generally she just doesn't feel well. Patient has been having worsening shoulder pain on the right side over the last couple of days this is been really bad tonight not allowing her to sleep yesterday she did some work washing dishes and cleaning out underneath the sink denies any specific injuries. Patient denies any nausea or vomiting no chest pain no chest pressure. No breathing difficulties no shortness of breath generally she just describes not feeling well and this right shoulder is really causing her some problems at this point. She has some intermittent abdominal discomfort she has a history of problems with constipation. She is not aware of any recent constipation but has some abdominal discomfort. Right Arm Pain Score (Numeric/FACES): 8 - Related Data Allergies Allergy/AdvReac Type Severity Reaction Status Date / Time adhesive Allergy Intermediate Hives Verified 01/15/17 23:03 striadril eye cream Allergy Intermediate Swollen Uncoded 01/15/17 23:03 Eyes Home Meds: Home Meds Budesonide/Formoterol [Symbicort 160-4.5 MCG] 2 puff INH BID 09/28/15 [History] Calcium Citrate 600 mg PO BID 09/28/15 [History] Cholecalciferol (Vitamin D3) [Vitamin D3] 2,000 units PO DAILY 09/28/15 [History ] Hydrochlorothiazide 25 mg PO DAILY 09/28/15 [History] Levothyroxine [Synthroid] 50 mcg PO DAILY 09/28/15 [History] Lovastatin [Mevacor] 40 mg PO DAILY 09/28/15 [History] Potassium Chloride [Klor-Con 10] 20 meq PO DAILY 09/07/16 [History] Diltiazem HCl [Cardizem] 120 mg PO DAILY #30 tablet 09/09/16 [Rx] Digoxin [Lanoxin] 125 mcg PO DAILY #15 tablet 11/25/16 [Rx] Apixaban [Eliquis] 5 mg PO BID 12/27/16 [History] Atenolol 25 mg PO DAILY 12/27/16 [History] Potassium Chloride 10 meq PO BEDTIME 12/27/16 [History] Ubidecarenone [Coq-10] 100 mg PO DAILY 12/27/16 [History] oxyCODONE HCl/Acetaminophen [Percocet 5-325 mg Tablet] 1 each PO Q4H PRN #12 tablet 12/27/16 [Rx] Past Medical History HEENT History: Reports: Hard of Hearing, Impaired Vision Other HEENT History: wears glasses, tongue lesions and papilloma Cardiovascular History: Reports: Afib, High Cholesterol, Hypertension, Other ( See Below) Other Cardiovascular History: secundum atrial septal defect, chronic venous insufficiency, varicose veins Respiratory History: Reports: COPD, Sleep Apnea Other Respiratory History: uses CPAP Gastrointestinal History: Reports: GERD, Hemorrhoids Genitourinary History: Reports: Urinary Incontinence Other Genitourinary History: hematuria 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 Psychiatric History: Reports: Dementia Endocrine/Metabolic History: Reports: Hypothyroidism, Obesity/BMI 30+ Hematologic History: Reports: Blood Transfusion(s) Other Dermatologic History: rash to hands, - Infectious Disease History Infectious Disease History: Reports: Measles, MRSA, Mumps - Past Surgical History HEENT Surgical History: Reports: Cataract Surgery Female Surgical History: Reports: Breast Biopsy, Hysterectomy Neurological Surgical History: Reports: Lumbar Spine Musculoskeletal Surgical History: Reports: Carpal Tunnel, Knee Replacement Oncologic Surgical History: Reports: Biopsy of Breast Social & Family History - Family History Family Medical History: Noncontributory Endocrine/Metabolic: Reports: Diabetes, Type I Oncologic: Reports: Bladder, Lung, Pancreatic - Tobacco Use Smoking Status *Q: Never Smoker Second Hand Smoke Exposure: No - Caffeine Use Caffeine Use: Reports: Coffee - Recreational Drug Use Recreational Drug Use: No Drug Use in Last 12 Months: No - Living Situation & Occupation Living situation: Reports: , with Spouse Occupation: Retired ED ROS GENERAL - Review of Systems Review Of Systems: See Below Constitutional: Denies: Fever, Chills HEENT: Reports: No Symptoms Respiratory: Reports: No Symptoms Cardiovascular: Reports: No Symptoms GI/Abdominal: Reports: Abdominal Pain. Denies: Constipation, Diarrhea, Nausea, Vomiting : Reports: No Symptoms Musculoskeletal: Reports: Shoulder Pain Neurological: Reports: No Symptoms Psychiatric: Reports: No Symptoms ED EXAM, GENERAL - Physical Exam Exam: See Below Exam Limited By: No Limitations General Appearance: Alert, No Apparent Distress Head: Atraumatic, Normocephalic Neck: Normal Inspection, Supple, Non-Tender, Full Range of Motion Respiratory/Chest: No Respiratory Distress, Lungs Clear, Normal Breath Sounds Cardiovascular: Regular Rate, Rhythm, No Murmur GI/Abdominal: Normal Bowel Sounds, Soft, Other (No tenderness worsened with palpation no rebound or guarding noted) Back Exam: Normal Inspection. No: CVA Tenderness (L), CVA Tenderness (R), Vertebral Tenderness Extremities: Other (She has significant right shoulder pain with marked discomfort over the deltoid patch area neurovascular status of the arm is okay active range of motion is significantly limited because of discomfort) Neurological: Alert, Oriented Course - Vital Signs Last Recorded V/S: Last Vital Signs Temp 36.8 C 01/15/17 22:54 Pulse 93 01/15/17 22:54 Resp 18 01/15/17 22:54 BP 139/52 L 01/15/17 22:54 Pulse Ox 93 L 01/15/17 22:54 - Orders/Labs/Meds Orders: Active Orders 24 hr Category Date Time Status EKG Documentation Completion [RC] STAT Care 01/16/17 00:21 Active Abdomen Series w Chest 1V [CR] Stat Exams 01/16/17 00:22 Taken Shoulder Comp Rt [CR] Stat Exams 01/16/17 01:11 Taken CULTURE URINE [RM] Stat Lab 01/16/17 01:07 Received Acetaminophen/HYDROcodone [[place]ia 325-5 MG] Med 01/16/17 05:21 Once 1 tab PO ONETIME ONE Labs: Laboratory Tests 01/16/17 01/16/17 01/16/17 Range/Units 00:54 00:54 01:00 WBC 12.46 H (3.98-10.04) K/mm3 RBC 4.09 (3.98-5.22) M/mm3 Hgb 12.0 (11.2-15.7) gm/L Hct 36.5 (34.1-44.9) % MCV 89.2 (79.4-94.8) fl MCH 29.3 (25.6-32.2) pg MCHC 32.9 (32.2-35.5) g/dl RDW Std Deviation 48.2 H (36.4-46.3) fL Plt Count 151 L (182-369) K/mm3 MPV 9.6 (9.4-12.3) fl Neutrophils % (Manual) 76 H (40-60) % Band Neutrophils % 0 (0-10) % Lymphocytes % (Manual) 19 L (20-40) % Atypical Lymphs % 0 % Monocytes % (Manual) 4 (2-10) % Eosinophils % (Manual) 1 (0.7-5.8) % Basophils % (Manual) 0 L (0.1-1.2) Platelet Estimate Adequate Plt Morphology Comment Normal RBC Morph Comment Normal Sodium 139 (136-145) mEq/L Potassium 3.1 L (3.5-5.1) mEq/L Chloride 100 (98-107) mEq/L Carbon Dioxide 32 (21-32) mEq/L Anion Gap 10.1 (5-15) BUN 12 (7-18) mg/dL Creatinine 0.8 (0.55-1.02) mg/dL Est Cr Clr Drug Dosing 45.20 mL/min Estimated GFR (MDRD) > 60 (>60) mL/min BUN/Creatinine Ratio 15.0 (14-18) Glucose 163 H (83-115) mg/dL Calcium 9.0 (8.5-10.1) mg/dL Total Bilirubin 1.3 H (0.2-1.0) mg/dL AST 18 (15-37) U/L ALT 32 (14-59) U/L Alkaline Phosphatase 68 (46-116) U/L Troponin I < 0.017 (0.00-0.056) ng/mL Total Protein 7.0 (6.4-8.2) g/dl Albumin 3.3 L (3.4-5.0) g/dl Globulin 3.7 gm/dL Albumin/Globulin Ratio 0.9 L (1-2) Urine Color Yellow (Yellow) Urine Appearance Clear (Clear) Urine pH 6.0 (5.0-8.0) Ur Specific [place] 1.020 (1.005-1.030) Urine Protein Negative (Negative) Urine Glucose (UA) Negative (Negative) Urine Ketones Negative (Negative) Urine Occult Blood 3+ H (Negative) Urine Nitrite Negative (Negative) Urine Bilirubin Negative (Negative) Urine Urobilinogen 0.2 (0.2-1.0) Ur Leukocyte Esterase Trace H (Negative) Urine RBC 40-50 H (0-5) /hpf Urine WBC 0-5 (0-5) /hpf Ur Epithelial Cells 5-10 H (0-5) /hpf Urine Bacteria Few (FEW) /hpf Urine Mucus Few (FEW) /hpf Meds: Medications Discontinued Medications Generic Name Dose Route Start Last Admin Trade Name Courtney PRN Reason Stop Dose Admin Acetaminophen 650 mg 01/16/17 04:08 01/16/17 04:22 Tylenol PO 01/16/17 04:09 650 mg NOW ONE Administration Potassium Chloride 40 meq 01/16/17 03:58 01/16/17 04:22 Klor-Con M20 PO 01/16/17 03:59 40 meq ONETIME ONE Administration - Re-Assessments/Exams Free Text/Narrative Re-Assessment/Exam: 01/16/17 04:09 Labs reviewed she has some microscopic hematuria she is on Eloquis. Her bilirubin is subtly elevated. And her potassium is low she is on potassium supplements and has been taking this as directed we will give her a one-time dose of potassium 40 mEq here we will order a urine culture however will not treat for UTI at this point as the hematuria is probably not infectious in origin. X-ray examination of her shoulder shows marked degenerative changes. Chest x-ray shows some cardiomegaly no acute cardiopulmonary changes abdominal x -rays do not show any evidence of obstruction or Constipation. Situation discussed with the patient and her main problem seems to be her shoulder. We will try her on Tylenol and see how she does with this 01/16/17 05:22 He has had some improvement with the Tylenol but not that great at this point we 'll add it to Artesia to 650 mg of Tylenol she had a little less than an hour ago. Going discharge home with recommendations that she take 2 extra strength Tylenol every 8 hours for a total of 3 doses daily and see if this works with her arthritis pain. Departure - Departure Time of Disposition: 05:23 Disposition: Home, Self-Care 01 Clinical Impression: Right shoulder pain, Microscopic hematuria - Discharge Information Additional Instructions: Return to the emergency room with any questions or problems. Take 2 extra strength Tylenol, thousand milligrams every 8 hours daily. This is 2 500 mg tablets or capsules. Follow-up with your regular physician early next week for recheck. You need follow-up for your microscopic hematuria, this is the blood we noticed in your urine. You also need follow-up for your shoulder pain. - My Orders Last 24 Hours: My Active Orders 01/16/17 00:21 EKG Documentation Completion [RC] STAT 01/16/17 00:22 Abdomen Series w Chest 1V [CR] Stat 01/16/17 01:07 CULTURE URINE [RM] Stat 01/16/17 01:11 Shoulder Comp Rt [CR] Stat 01/16/17 05:21 Acetaminophen/HYDROcodone [[place] 325-5 MG] 1 tab PO ONETIME ONE - Assessment/Plan Last 24 Hours: My Active Orders 01/16/17 00:21 EKG Documentation Completion [RC] STAT 01/16/17 00:22 Abdomen Series w Chest 1V [CR] Stat 01/16/17 01:07 CULTURE URINE [RM] Stat 01/16/17 01:11 Shoulder Comp Rt [CR] Stat 01/16/17 05:21 Acetaminophen/HYDROcodone [[place] 325-5 MG] 1 tab PO ONETIME ONE
[2017-01-15 23:07] VITALS: BP 139/52
[2017-01-16] MEDS ORDERED: Potassium Chloride 20 MEQ Tab.ER PO ONE (03:58)
[2017-01-16] MEDS ORDERED: Acetaminophen 325 MG Tab PO ONE (04:08)
[2017-01-16] MEDS ORDERED: Acetaminophen/HYDROcodone 325-5 MG Tab PO ONE (05:21)
--- NOTE | 2017-01-16 08:42 | CR ---
Right shoulder: Three views of the right shoulder were obtained. Comparison: No previous right shoulder exam. Degenerative change is seen within the glenohumeral joint. Minimal spurring is noted within the acromioclavicular joint. Well-corticated bony density is seen off the upper glenohumeral joint possibly due to large loose body. Findings suspicious for chronic rotator cuff tear are noted. Osteopenia is seen. No acute abnormality is identified. Impression: 1. Degenerative change as noted above. Probable large calcified loose body superior within the joint. 2. No acute fracture or other abnormality is identified. Diagnostic code #3
--- NOTE | 2017-01-16 08:42 | CR ---
Abdominal series: Frontal view of the chest was obtained as well as supine and upright views of the abdomen. Comparison: Previous chest x-ray of 11/25/16, no previous abdominal x-ray other than CT abdomen and pelvis exam of 01/16/11. Heart size at the upper limits of normal. Upper mediastinum is within normal limits. Pulmonary vessels are felt to be slightly congested. Minimal atelectasis noted within the left lung base. Scoliosis is noted within the spine. Degenerative change noted within the right shoulder. Bony structures are osteopenic. Bowel gas pattern appears within normal limits. Calcifications are seen within the pelvis which are compatible with phleboliths. Slight degenerative change noted within both inferior sacroiliac joints. No free air is seen. Impression: 1. Pulmonary vessels slightly increased believed to represent mild pulmonary vascular congestion. Please correlate. 2. Minimal left basilar atelectasis and other incidental findings. Diagnostic code #3
== END 2017-01-16 06:39 | disposition home or self-care (01) ==
LOC: JD.ED 22:46
DX: M25.511 Pain in right shoulder (principal); R31.29 Other microscopic hematuria; I10 Essential (primary) hypertension; E78.00 Pure hypercholesterolemia, unspecified; I48.91 Unspecified atrial fibrillation; J44.9 Chronic obstructive pulmonary disease, unspecified; G47.30 Sleep apnea, unspecified; K21.9 Gastro-esophageal reflux disease without esophagitis; M19.90 Unspecified osteoarthritis, unspecified site; E03.9 Hypothyroidism, unspecified; E66.9 Obesity, unspecified; F03.90 Unspecified dementia, unspecified severity, without behavioral disturbance, psychotic disturbance, mood disturbance, and anxiety; Z90.710 Acquired absence of both cervix and uterus; Z98.49 Cataract extraction status, unspecified eye; Z96.659 Presence of unspecified artificial knee joint; Z79.899 Other long term (current) drug therapy; Z88.8 Allergy status to other drugs, medicaments and biological substances
CPT/HCPCS: 36415; 73030; 74022; 80053; 81001; 84484; 85025; 87086; 93005; 99284; A9270; P9612; 99283

== ENCOUNTER 2017-02-12 16:25 | Emergency (ER) | payer MEDICARE, BC ==
[2017-02-12 16:39] VITALS: BP 154/74
--- NOTE | 2017-02-12 17:01 | EDM.PDOC ---
ED HPI GENERAL MEDICAL PROBLEM - General Chief Complaint: Upper Extremity Injury/Pain Stated Complaint: Abscess Time Seen by Provider: 02/12/17 16:45 Source of Information: Reports: Patient, RN Notes Reviewed History Limitations: Reports: No Limitations - History of Present Illness INITIAL COMMENTS - FREE TEXT/NARRATIVE: 87 year old female presents to ED for abscess to right arm. She was initially evaluated by Dr. Street in the clinic who started her on antibiotics and sent her here for incision and drainage. They tried to get her into a surgeon but were unable to. She has a large, round, painful lump to her right arm with a small amount of purulent drainage. Patient denies fever or chills. She is on blood thinners for DVT. 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: placed on antibioitcs today Right Arm Pain Score (Numeric/FACES): 7 - Related Data Allergies Allergy/AdvReac Type Severity Reaction Status Date / Time adhesive Allergy Intermediate Hives Verified 01/15/17 23:03 striadril eye cream Allergy Intermediate Swollen Uncoded 01/15/17 23:03 Eyes Home Meds: Home Meds Budesonide/Formoterol [Symbicort 160-4.5 MCG] 2 puff INH BID 09/28/15 [History] Cholecalciferol (Vitamin D3) [Vitamin D3] 2,000 units PO DAILY 09/28/15 [History ] Hydrochlorothiazide 25 mg PO DAILY 09/28/15 [History] Levothyroxine [Synthroid] 50 mcg PO DAILY 09/28/15 [History] Lovastatin [Mevacor] 40 mg PO DAILY 09/28/15 [History] Potassium Chloride [Klor-Con 10] 20 meq PO DAILY 09/07/16 [History] Apixaban [Eliquis] 5 mg PO BID 12/27/16 [History] Atenolol 25 mg PO DAILY 12/27/16 [History] Potassium Chloride 10 meq PO BEDTIME 12/27/16 [History] Ubidecarenone [Coq-10] 100 mg PO DAILY 12/27/16 [History] Amoxicillin/Clavulanate K [Augmentin 875 MG/125 MG] 1 tab PO BID 02/12/17 [ History] Ascorbic Acid [Vitamin C] 500 mg PO DAILY 02/12/17 [History] Calcium Citrate/Vitamin D3 [Calcium Citrate + D] 1 tab PO DAILY 02/12/17 [ History] Diltiazem [Cardizem CD] 180 mg PO DAILY 02/12/17 [History] Dodge-3 Fatty Acids/Fish Oil [Fish Oil 1,000 mg Softgel] 1,000 mg PO DAILY 02/12 [History] Past Medical History HEENT History: Reports: Hard of Hearing, Impaired Vision Other HEENT History: wears glasses, tongue lesions and papilloma Cardiovascular History: Reports: Afib, High Cholesterol, Hypertension, Other ( See Below) Other Cardiovascular History: secundum atrial septal defect, chronic venous insufficiency, varicose veins Respiratory History: Reports: COPD, Sleep Apnea Other Respiratory History: uses CPAP Gastrointestinal History: Reports: GERD, Hemorrhoids Genitourinary History: Reports: Urinary Incontinence Other Genitourinary History: hematuria 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 Psychiatric History: Reports: Dementia Endocrine/Metabolic History: Reports: Hypothyroidism, Obesity/BMI 30+ Hematologic History: Reports: Blood Transfusion(s) Other Dermatologic History: rash to hands, - Infectious Disease History Infectious Disease History: Reports: MRSA, Other (See Below) Other Infectious Disease History: nares 2016 prior to knee surgery - Past Surgical History HEENT Surgical History: Reports: Cataract Surgery Female Surgical History: Reports: Breast Biopsy, Hysterectomy Neurological Surgical History: Reports: Lumbar Spine Musculoskeletal Surgical History: Reports: Carpal Tunnel, Knee Replacement Oncologic Surgical History: Reports: Biopsy of Breast Social & Family History - Family History Family Medical History: Noncontributory Endocrine/Metabolic: Reports: Diabetes, Type I Oncologic: Reports: Bladder, Lung, Pancreatic - Tobacco Use Smoking Status *Q: Never Smoker Second Hand Smoke Exposure: No - Caffeine Use Caffeine Use: Reports: Coffee, Tea - Recreational Drug Use Recreational Drug Use: No Drug Use in Last 12 Months: No - Living Situation & Occupation Living situation: Reports: , with Spouse Occupation: Retired Review of Systems - Review of Systems Review Of Systems: See Below Constitutional: Reports: No Symptoms. Denies: Chills, Fever Musculoskeletal: Reports: Arm Pain Skin: Reports: Erythema, Lumps ED EXAM, GENERAL - Physical Exam Exam: See Below Exam Limited By: No Limitations General Appearance: Alert, WD/WN, No Apparent Distress Respiratory/Chest: No Respiratory Distress, Lungs Clear Cardiovascular: Regular Rate, Rhythm Extremities: Normal Range of Motion, Normal Capillary Refill, Increased Warmth ( right forearm ), Redness (right forearm ) Neurological: Alert, Normal Cognition, No Motor/Sensory Deficits Skin Exam: Warm, Dry, Normal Color, Other (round, quarter sized, round area to right forearm. There is a small amount of purulent drainage from the center. There is surrounding erythema and warmth. ) ED TRAUMA EXTREMITY PROCEDURES - I&D Site: Right forearm Skin Prep: Chlorhexidine (Hibiciens) Local Anesthesia: Lidocaine: 1% With EPI Local Anesthetic Volume: 2cc Area Incised With: 15 Blade Drainage: Purulent, Small Amount Probed to Break Up Loculations: Yes Packed With: 1/2 in. Iodoform Sterile Dressinx4(s) Complications: No Progress/Comments: Small amount of purulent drainage appreciated with I&D. Sent for culture. There is white tissue suggestive of cyst formation. Course - Vital Signs Last Recorded V/S: Last Vital Signs Temp 97.5 F 02/12/17 16:38 Pulse 75 02/12/17 16:38 Resp 20 02/12/17 16:38 BP 154/74 H 02/12/17 16:38 Pulse Ox 93 L 02/12/17 16:38 - Orders/Labs/Meds Orders: Active Orders 24 hr Category Date Time Status CULTURE WOUND [RM] Stat Lab 02/12/17 18:00 Received Meds: Medications Discontinued Medications Generic Name Dose Route Start Last Admin Trade Name Courtney PRN Reason Stop Dose Admin Lidocaine HCl 50 ml 02/12/17 17:02 02/12/17 17:12 Xylocaine 1% SUBCUT 02/12/17 17:03 50 ml NOW STA Administration Departure - Departure Time of Disposition: 18:00 Disposition: Home, Self-Care 01 Condition: Good Clinical Impression: Cellulitis Qualifiers: Site of cellulitis: extremity Site of cellulitis of extremity: upper extremity Laterality: right Qualified Code(s): L03.113 - Cellulitis of right upper limb - Discharge Information Instructions: Cellulitis, Adult, [id number] Referrals: Adam Street MD [Primary Care Provider] - Forms: ED Department Discharge Additional Instructions: Start antibiotic as prescribed by Dr. Street Leave initial dressing in place for 24 hours Tomorrow night you can remove the dressing and packing Replace with a dry band-aid or gauze type dressing Follow-up with Dr. Street next week - My Orders Last 24 Hours: My Active Orders 02/12/17 18:00 CULTURE WOUND [RM] Stat - Assessment/Plan Last 24 Hours: My Active Orders 02/12/17 18:00 CULTURE WOUND [RM] Stat
[2017-02-12] MEDS ORDERED: Lidocaine 1% 50 ML MDV SUBCUT STA (17:02)
== END 2017-02-12 18:15 | disposition home or self-care (01) ==
LOC: JD.ED 16:25
DX: L03.113 Cellulitis of right upper limb (principal); I48.91 Unspecified atrial fibrillation; E78.00 Pure hypercholesterolemia, unspecified; I10 Essential (primary) hypertension; J44.9 Chronic obstructive pulmonary disease, unspecified; K21.9 Gastro-esophageal reflux disease without esophagitis; E03.9 Hypothyroidism, unspecified; E66.9 Obesity, unspecified; Z68.38 Body mass index [BMI] 38.0-38.9, adult; Z79.899 Other long term (current) drug therapy; Z98.49 Cataract extraction status, unspecified eye; Z90.710 Acquired absence of both cervix and uterus; Z96.659 Presence of unspecified artificial knee joint; Z98.890 Other specified postprocedural states; Z88.8 Allergy status to other drugs, medicaments and biological substances; Z91.048 Other nonmedicinal substance allergy status
CPT/HCPCS: 10061; 87070; 87075; 87077; 87186; 87205; 99283; 99284-25

== ENCOUNTER 2018-03-26 08:04 | Day surgery (SDC) | payer MEDICARE, BC ==
[~2018-03-26 08:04] MED LIST: Lactated Ringers 1,000 ML IV SCH; Lidocaine 1% 4 ML ONE; Lidocaine 1%/Sod Bicarbonate in NS 8.4% 1 ML Syringe IDERM PRN; Propofol 200 MG/20 ML SDV ONE; Sodium Chloride 0.9% 10 ML Syringe FLUSH PRN; fentaNYL 100 MCG/2 ML SDV ONE
--- NOTE | 2018-03-26 08:49 | PCM.PREANE ---
Preanesthetic Assessment - Anesthesia/Transfusion/Family Hx Anesthesia History: Prior Anesthesia Without Reaction Family History of Anesthesia Reaction: No Transfusion History: Prior Transfusion Without Reaction Intubation History: Unknown - Review of Systems Pulmonary: No Symptoms (PEE with CPAP) Cardiovascular: No Symptoms (HTN/History of paroxysmal atrial fibrillation), Palpitations, Dyspnea on Exertion, Edema (History of CHF/no edema peripheral noted today.) Gastrointestinal: No Symptoms (History of right breast cancer/GERD-no symptoms noted today.) Neurological: No Symptoms (History of chronic back pain/History of CVA), Numbness (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-history of spinal stenosis), Gait Disturbance Other: Reports: Easy Bleeding, Easy Bruising (currently on eliquis), Thyroid Problems (History of hypothyroid), Neck Pain, Depression, Anxiety - Physical Assessment NPO Status Date: 03/26/18 NPO Status Time: 03:00 Pulse: 69 O2 Sat by Pulse Oximetry: 93 Respiratory Rate: 20 Blood Pressure: 128/62 Temperature: 36.2 C Height: 1.65 m Weight: 94.347 kg ASA Class: 3 Mental Status: Alert & Oriented x3 Airway Class: Mallampati = 2 Dentition: Reports: Normal Dentition, Caries Thyro-Mental Finger Breadths: 3 Mouth Opening Finger Breadths: 3 ROM/Head Extension: Full Lungs: Clear to Auscultation, Normal Respiratory Effort Cardiovascular: Regular Rate, Regular Rhythm, No Murmurs - Imaging/EKG Impressions: Echocardiogram: EF: 60% - Allergies Allergies/Adverse Reactions: Allergies Allergy/AdvReac Type Severity Reaction Status Date / Time adhesive Allergy Intermediate Hives Verified 03/25/18 12:35 striadril eye cream Allergy Intermediate Swollen Uncoded 03/25/18 12:35 Eyes - Anesthesia Plan Beta Rj: Atenolol Med Last Dose Date: 03/26/18 Med Last Dose Time: 07:30 - Acknowledgements Anesthesia Type Planned: MAC Pt an Appropriate Candidate for the Planned Anesthesia: Yes Alternatives and Risks of Anesthesia Discussed w Pt/Guardian: Yes Pt/Guardian Understands and Agrees with Anesthesia Plan: Yes PreAnesthesia Questionnaire HEENT History: Reports: Hard of Hearing, Impaired Vision Other HEENT History: wears glasses, tongue lesions and papilloma, partial retinal occlusion Cardiovascular History: Reports: Afib, Blood Clots/VTE/DVT, Heart Failure, High Cholesterol, Hypertension, PVD, Other (See Below) Other Cardiovascular History: secundum atrial septal defect, chronic venous insufficiency, varicose veins, mitral valve regurgitation, dysrhythmia, edema Respiratory History: Reports: COPD, Sleep Apnea Other Respiratory History: uses CPAP Gastrointestinal History: Reports: GERD, Hemorrhoids Genitourinary History: Reports: Urinary Incontinence Other Genitourinary History: hematuria [employer] L[employer]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 History: Reports: Other (See Below) Other OB/BYN History: hysterectomy, breast lumpectomy Musculoskeletal History: Reports: Back Pain, Chronic, Osteoarthritis, Osteoporosis, Other (See Below) Other Musculoskeletal History: spinal stenosis, gait abnormality, myalgia, restless leg syndrome Neurological History: Reports: Other (See Below) Other Neuro History: cerviclagia, dementia, memory loss, CVA Psychiatric History: Reports: Anxiety, Dementia, Depression Endocrine/Metabolic History: Reports: Hypothyroidism, Obesity/BMI 30+, Osteopenia, Other (See Below) Other Endocrine/Metabolic History: goiter Hematologic History: Reports: Blood Transfusion(s) Immunologic History: Reports: None Oncologic (Cancer) History: Reports: Breast Other Dermatologic History: rash to hands, contact dermatitis, eczema, seborrheic keratosis, skin neoplasm, pyogenic granuloma of skin - Infectious Disease History Infectious Disease History: Reports: MRSA, Other (See Below) Other Infectious Disease History: nares 2016 prior to knee surgery - Past Surgical History HEENT Surgical History: Reports: Cataract Surgery Respiratory Surgical History: Reports: None GI Surgical History: Reports: Appendectomy, Cholecystectomy, Colonoscopy Female Surgical History: Reports: Breast Biopsy, Hysterectomy Male Surgical History: Reports: None Other Endocrine Surgeries/Procedures: thyroid lesion Neurological Surgical History: Reports: Lumbar Spine Musculoskeletal Surgical History: Reports: Carpal Tunnel, Knee Replacement Other Musculoskeletal Surgeries/Procedures:: back surgery, bilateral carpal tunnel surgery, lumbar laminectomy with spinal stenosis decompression, osteopenia, restless leg syndrome, sciatica, spinal stenosis Oncologic Surgical History: Reports: Biopsy of Breast - SUBSTANCE USE Smoking Status *Q: Never Smoker Second Hand Smoke Exposure: No Recreational Drug Use History: No - HOME MEDS Home Medications: Home Meds Budesonide/Formoterol [Symbicort 160-4.5 MCG] 2 puff INH BID 09/28/15 [History] Cholecalciferol (Vitamin D3) [Vitamin D3] 3,000 units PO DAILY 09/28/15 [History ] Levothyroxine [Synthroid] 50 mcg PO DAILY 09/28/15 [History] Lovastatin [Mevacor] 40 mg PO DAILY 09/28/15 [History] Apixaban [Eliquis] 2.5 mg PO BID 12/27/16 [History] Potassium Chloride 20 meq PO QPM 12/27/16 [History] Calcium Citrate/Vitamin D3 [Calcium Citrate + D] 1 tab PO BID 02/12/17 [History] Diltiazem [Cardizem CD] 180 mg PO DAILY 02/12/17 [History] [place]-3 Fatty Acids/Fish Oil [Fish Oil 1,000 mg Softgel] 1,000 mg PO DAILY 02/12 [History] Anastrozole [Arimidex] 1 mg PO DAILY 03/25/18 [History] Atenolol 50 mg PO DAILY 03/25/18 [History] Furosemide 20 mg PO DAILY 03/25/18 [History] Montelukast [Singulair] 10 mg PO DAILY 03/25/18 [History] Spironolactone [Aldactone] 25 mg PO DAILY 03/25/18 [History] - CURRENT (IN HOUSE) MEDS Current Meds: Current Medications Lactated Ringer's (Ringers, Lactated) 1,000 mls @ 125 mls/hr IV ASDIRECTED [facility] Stop: 03/26/18 23:00 Lidocaine/Sodium Bicarbonate (Buffered Lidocaine 1% In Ns 8.4%) 0.25 ml IDERM ONETIME PRN PRN Reason: Prior to IV Start Stop: 03/26/18 18:00 Sodium Chloride (Saline Flush) 10 ml FLUSH ASDIRECTED PRN PRN Reason: Keep Vein Open Stop: 03/26/18 18:00 Discontinued Medications Fentanyl (Sublimaze) Confirm Administered Dose 100 mcg .ROUTE .STK-MED ONE Stop: 03/26/18 06:52 Lactated Ringer's (Ringers, Lactated) 1,000 mls @ 125 mls/hr IV ASDIRECTED [facility] Stop: 10/30/17 23:00 Lactated Ringer's (Ringers, Lactated) 1,000 mls @ 125 mls/hr IV ASDIRECTED [facility] Stop: 02/05/18 23:00 Lidocaine HCl (Xylocaine-Mpf 1%) Confirm Administered Dose 4 mls @ as directed .ROUTE .STK-MED ONE Stop: 03/26/18 06:51 Lidocaine/Sodium Bicarbonate (Buffered Lidocaine 1% In Ns 8.4%) 0.25 ml IDERM ONETIME PRN PRN Reason: Prior to IV Start Stop: 10/30/17 18:00 Lidocaine/Sodium Bicarbonate (Buffered Lidocaine 1% In Ns 8.4%) 0.25 ml IDERM ONETIME PRN PRN Reason: Prior to IV Start Stop: 02/05/18 18:00 Propofol (Diprivan 20 Ml) Confirm Administered Dose 200 mg .ROUTE .STK-MED ONE Stop: 03/26/18 06:52 Sodium Chloride (Saline Flush) 10 ml FLUSH ASDIRECTED PRN PRN Reason: Keep Vein Open Stop: 10/30/17 18:00 Sodium Chloride (Saline Flush) 10 ml FLUSH ASDIRECTED PRN PRN Reason: Keep Vein Open Stop: 02/05/18 18:00
--- NOTE | 2018-03-26 09:01 | PCM.HP ---
H&P History of Present Illness - General Date of Service: 03/26/18 Admit Problem/Dx: Family history of colon cancer Source of Information: Patient History Limitations: Reports: No Limitations - History of Present Illness Initial Comments - Free Text/Narative: 88 year old female here today for colon cancer screening. Her family history is positive for colon cancer in her brother. Her last colonoscopy was 5 years ago and was normal. she is having no hematochezia or melena, no recent or radical changes in bowel habits. She has a personal history of breast cancer. She has nonrheumatic mitral valve regurgitation. She denies any orthopnea or paroxysmal nocturnal dyspnea. - Related Data Allergies/Adverse Reactions: Allergies Allergy/AdvReac Type Severity Reaction Status Date / Time adhesive Allergy Intermediate Hives Verified 03/25/18 12:35 striadril eye cream Allergy Intermediate Swollen Uncoded 03/25/18 12:35 Eyes Home Medications: Home Meds Budesonide/Formoterol [Symbicort 160-4.5 MCG] 2 puff INH BID 09/28/15 [History] Cholecalciferol (Vitamin D3) [Vitamin D3] 3,000 units PO DAILY 09/28/15 [History ] Levothyroxine [Synthroid] 50 mcg PO DAILY 09/28/15 [History] Apixaban [Eliquis] 2.5 mg PO BID 12/27/16 [History] Potassium Chloride 20 meq PO QPM 12/27/16 [History] Calcium Citrate/Vitamin D3 [Calcium Citrate + D] 1 tab PO BID 02/12/17 [History] Diltiazem [Cardizem CD] 180 mg PO DAILY 02/12/17 [History] [place]-3 Fatty Acids/Fish Oil [Fish Oil 1,000 mg Softgel] 1,000 mg PO DAILY 02/12 [History] Anastrozole [Arimidex] 1 mg PO DAILY 03/25/18 [History] Atenolol 50 mg PO DAILY 03/25/18 [History] Furosemide 20 mg PO DAILY 03/25/18 [History] Montelukast [Singulair] 10 mg PO DAILY 03/25/18 [History] Spironolactone [Aldactone] 25 mg PO DAILY 03/25/18 [History] Rosuvastatin [Crestor] 10 mg PO DAILY 03/26/18 [History] Past Medical History HEENT History: Reports: Hard of Hearing, Impaired Vision Other HEENT History: wears glasses, tongue lesions and papilloma, partial retinal occlusion Cardiovascular History: Reports: Afib, Blood Clots/VTE/DVT, Heart Failure, High Cholesterol, Hypertension, PVD, Other (See Below) Other Cardiovascular History: secundum atrial septal defect, chronic venous insufficiency, varicose veins, mitral valve regurgitation, dysrhythmia, edema Respiratory History: Reports: COPD, Sleep Apnea Other Respiratory History: uses CPAP Gastrointestinal History: Reports: GERD, Hemorrhoids Genitourinary History: Reports: Urinary Incontinence Other Genitourinary History: hematuria 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: Other (See Below) Other OB/BYN History: hysterectomy, breast lumpectomy Musculoskeletal History: Reports: Back Pain, Chronic, Osteoarthritis, Osteoporosis, Other (See Below) Other Musculoskeletal History: spinal stenosis, gait abnormality, myalgia, restless leg syndrome Neurological History: Reports: Other (See Below) Other Neuro History: cerviclagia, dementia, memory loss, CVA Psychiatric History: Reports: Anxiety, Dementia, Depression Endocrine/Metabolic History: Reports: Hypothyroidism, Obesity/BMI 30+, Osteopenia, Other (See Below) Other Endocrine/Metabolic History: goiter Hematologic History: Reports: Blood Transfusion(s) Immunologic History: Reports: None Oncologic (Cancer) History: Reports: Breast Other Dermatologic History: rash to hands, contact dermatitis, eczema, seborrheic keratosis, skin neoplasm, pyogenic granuloma of skin - Infectious Disease History Infectious Disease History: Reports: MRSA, Other (See Below) Other Infectious Disease History: nares 2016 prior to knee surgery - Past Surgical History HEENT Surgical History: Reports: Cataract Surgery Respiratory Surgical History: Reports: None GI Surgical History: Reports: Appendectomy, Cholecystectomy, Colonoscopy Female Surgical History: Reports: Breast Biopsy, Hysterectomy Male Surgical History: Reports: None Other Endocrine Surgeries/Procedures: thyroid lesion Neurological Surgical History: Reports: Lumbar Spine Musculoskeletal Surgical History: Reports: Carpal Tunnel, Knee Replacement Other Musculoskeletal Surgeries/Procedures:: back surgery, bilateral carpal tunnel surgery, lumbar laminectomy with spinal stenosis decompression, osteopenia, restless leg syndrome, sciatica, spinal stenosis Oncologic Surgical History: Reports: Biopsy of Breast Social & Family History - Family History Family Medical History: Noncontributory Endocrine/Metabolic: Reports: Diabetes, Type I Oncologic: Reports: Bladder, Lung, Pancreatic - Tobacco Use Smoking Status *Q: Never Smoker Second Hand Smoke Exposure: No - Caffeine Use Caffeine Use: Reports: Coffee, Tea - Recreational Drug Use Recreational Drug Use: No Drug Use in Last 12 Months: No - Living Situation & Occupation Living situation: Reports: , with Spouse Occupation: Retired H&P Review of Systems - Review of Systems: Review Of Systems: See Below Pulmonary: Reports: Shortness of Breath. Denies: Wheezing, Pleuritic Chest Pain , Cough Cardiovascular: Reports: Dyspnea on Exertion. Denies: Orthopnea, PND, Edema, Lightheadedness, Syncope Gastrointestinal: Reports: No Symptoms Exam - Exam Exam: See Below - Vital Signs Vital Signs: Last Vital Signs Temp 36.2 C 03/26/18 08:54 Pulse 69 03/26/18 08:54 Resp 20 03/26/18 08:54 BP 128/62 03/26/18 08:54 Pulse Ox 93 L 03/26/18 08:54 Weight: 94.347 kg - Exam General: Alert, Oriented Lungs: Clear to Auscultation Cardiovascular: Regular Rate, Regular Rhythm GI/Abdominal Exam: Normal Bowel Sounds, Soft, Non-Tender - Problem List (1) Family history of colon cancer SNOMED Code(s): 146376013 ICD Code: Z80.0 - FAMILY HISTORY OF MALIGNANT NEOPLASM OF DIGESTIVE ORGANS Status: Acute Current Visit: Yes (2) New onset atrial fibrillation SNOMED Code(s): 86566267 ICD Code: I48.91 - UNSPECIFIED ATRIAL FIBRILLATION Status: Acute Current Visit: No Problem List Initiated/Reviewed/Updated: Yes Orders Last 24hrs: Active Orders 24 hr Category Date Time Status Peripheral IV Care [RC] . DIRECTED Care 03/26/18 00:01 Active Peripheral IV Care [RC] . DIRECTED Care 03/26/18 00:01 Active Peripheral IV Care [RC] . DIRECTED Care 03/26/18 00:01 Active Verify Patient Consent Obtain [RC] ASDIRECTED Care 03/26/18 00:01 Active Verify Patient Consent Obtain [RC] ASDIRECTED Care 03/26/18 00:01 Active Verify Patient Consent Obtain [RC] ASDIRECTED Care 03/26/18 00:01 Active Lactated Ringers [Ringers, Lactated] 1,000 ml Med 03/26/18 00:01 Active IV ASDIRECTED Lidocaine 1%/Sod Bicarbonate [Buffered Lidocaine 1% in Med 03/26/18 00:01 Active NS 8.4%] 0.25 ml IDERM ONETIME PRN Sodium Chloride 0.9% [Saline Flush] Med 03/26/18 00:01 Active 10 ml FLUSH ASDIRECTED PRN Medication Administration Instruction [OM.PC] Routine Oth 03/26/18 00:01 Ordered Medication Administration Instruction [OM.PC] Routine Oth 03/26/18 00:01 Ordered Medication Administration Instruction [OM.PC] Routine Oth 03/26/18 00:01 Ordered Peripheral IV Insertion Adult [OM.PC] Routine Oth 03/26/18 00:01 Ordered Peripheral IV Insertion Adult [OM.PC] Routine Oth 03/26/18 00:01 Ordered Peripheral IV Insertion Adult [OM.PC] Routine Ot 03/26/18 00:01 Ordered Medication Orders Lactated Ringer's (Ringers, Lactated) 1,000 mls @ 125 mls/hr IV ASDIRECTED [facility] Stop: 03/26/18 23:00 Last Admin: 03/26/18 08:30 Dose: 125 mls/hr Lidocaine/Sodium Bicarbonate (Buffered Lidocaine 1% In Ns 8.4%) 0.25 ml IDERM ONETIME PRN PRN Reason: Prior to IV Start Stop: 03/26/18 18:00 Last Admin: 03/26/18 08:30 Dose: 0.25 ml Sodium Chloride (Saline Flush) 10 ml FLUSH ASDIRECTED PRN PRN Reason: Keep Vein Open Stop: 03/26/18 18:00 Assessment/Plan Comment:: 88 year old female here today for screening colonoscopy due to family history of colon cancer in her brother. Benefits/risks discussed including bleeding, perforation, injury, anesthesia complications. Patient voiced understanding and will proceed with colonoscopy.
--- NOTE | 2018-03-26 09:34 | PCM.OPNOTE ---
- General Post-Op/Procedure Note Date of Surgery/Procedure: 03/26/18 Operative Procedure(s): High risk screening Colonoscopy Findings: Melanosis Coli, Internal and external hemorrhoids Pre Op Diagnosis: Family history of colon cancer Post-Op Diagnosis: Melanosis coli, internal and external hemorrhoids Anesthesia Technique: MAC Primary Surgeon: Flip Kim Anesthesia Provider: Oksana Romero EBL in mLs: 0 Complications: None Condition: Good Free Text/Narrative:: After the patient gave verbal and written consent she was placed on blood pressure and pulse ox monitoring. She was given IV sedation which she tolerated well. The olympus colonoscope was inserted per rectum and advanced to the cecum without difficulty. The ileocecal valve and appendiceal orfice were imaged documenting cecal intubation. The scope was slowly withdrawn and the mucosa carefully examined. The prep was good. The views were good. 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 The scope was then retroflexed in the rectum; internal and external hemorrhoids were noted, scope was then removed and the details are above. Based on the patient's advanced age, she can discontinue colon cancer screening. She should present for colonoscopy for change in bowel habits, iron deficiency anemia, blood in the stool, etc.
--- NOTE | 2018-03-26 09:35 | PCM48HPAN ---
Post Anesthesia Note - EVALUATION WITHIN 48HRS OF ANESTHETIC Vital Signs in Normal Range: Yes Patient Participated in Evaluation: Yes Respiratory Function Stable: Yes Airway Patent: Yes Cardiovascular Function Stable: Yes Hydration Status Stable: Yes Pain Control Satisfactory: Yes Nausea and Vomiting Control Satisfactory: Yes Mental Status Recovered: Yes Pulse Rate: 69 SaO2: 93 Resp Rate: 20 Temperature: 36.2 C Blood Pressure: 128/62 Pulse Rate: 60
[2018-03-26 09:36] VITALS: BP 99/54
== END 2018-03-26 10:11 | disposition home or self-care (01) ==
LOC: JD.SDS 08:04
PROVIDERS: ATTEND Family Medicine
DX: Z12.11 Encounter for screening for malignant neoplasm of colon (principal); K63.89 Other specified diseases of intestine; K64.8 Other hemorrhoids; K64.4 Residual hemorrhoidal skin tags; E78.00 Pure hypercholesterolemia, unspecified; K21.9 Gastro-esophageal reflux disease without esophagitis; J44.9 Chronic obstructive pulmonary disease, unspecified; I10 Essential (primary) hypertension; I48.91 Unspecified atrial fibrillation; G25.81 Restless legs syndrome; G47.30 Sleep apnea, unspecified; Z99.89 Dependence on other enabling machines and devices; M19.90 Unspecified osteoarthritis, unspecified site; M10.9 Gout, unspecified; M81.0 Age-related osteoporosis without current pathological fracture; E03.9 Hypothyroidism, unspecified; E66.9 Obesity, unspecified; Z68.34 Body mass index [BMI] 34.0-34.9, adult; Z79.899 Other long term (current) drug therapy; Z91.048 Other nonmedicinal substance allergy status; Z98.890 Other specified postprocedural states; Z80.0 Family history of malignant neoplasm of digestive organs
CPT/HCPCS: G0105; J2704; J3010; J7120; J2001

== ENCOUNTER 2020-03-05 13:48 | Emergency (ER) | payer MEDICARE, BC ==
--- NOTE | 2020-03-05 14:22 | EDM.PDOC ---
ED HPI GENERAL MEDICAL PROBLEM - General Chief Complaint: Head Injury Stated Complaint: FACIAL INJURIES Time Seen by Provider: 03/05/20 13:59 Source of Information: Reports: Patient History Limitations: Reports: No Limitations - History of Present Illness INITIAL COMMENTS - FREE TEXT/NARRATIVE: The patient presents with facial injuries after a fall. She is on eliquis for atrial fibrillation. She had a ground level fall yesterday. She tripped and fell in the door way and hit her face. She said she had a blood nose for awhile. She also has ecchymosis and edema to her nose and under both eyes. She has a headache and she does not feel right. She has no fever, chills, cough, chest pain, shortness of breath, abdominal pain, numbness or weakness. She has no double vision. Onset: Sudden Duration: Day(s): (Yesterday) Location: Reports: Head, Face Quality: Reports: Sharp Severity: Moderate Improves with: Reports: None Worsens with: Reports: None Associated Symptoms: Reports: Headaches. Denies: Chest Pain, Cough, Fever/Chills, Nausea/Vomiting, Shortness of Breath - Related Data Allergies Allergy/AdvReac Type Severity Reaction Status Date / Time adhesive Allergy Intermediate Hives Verified 03/05/20 14:02 striadril eye cream Allergy Intermediate Swollen Uncoded 03/05/20 14:02 Eyes Home Meds: Home Meds Budesonide/Formoterol [Symbicort 160-4.5 MCG] 2 puff INH BID 09/28/15 [History] Cholecalciferol (Vitamin D3) [Vitamin D3] 3,000 units PO DAILY 09/28/15 [History] Levothyroxine [Synthroid] 50 mcg PO DAILY 09/28/15 [History] Apixaban [Eliquis] 5 mg PO BID 12/27/16 [History] Potassium Chloride 20 meq PO QPM 12/27/16 [History] Calcium Citrate/Vitamin D3 [Calcium Citrate + D] 1 tab PO BID 02/12/17 [History] Diltiazem [Cardizem CD] 180 mg PO DAILY 02/12/17 [History] Furosemide 20 mg PO DAILY 03/25/18 [History] Montelukast [Singulair] 10 mg PO DAILY 03/25/18 [History] Spironolactone [Aldactone] 25 mg PO DAILY 03/25/18 [History] atenoloL [Atenolol] 50 mg PO DAILY 03/25/18 [History] Rosuvastatin [Crestor] 10 mg PO DAILY 03/26/18 [History] Ubidecarenone [Co Q-10] 100 mg PO DAILY 03/05/20 [History] Past Medical History HEENT History: Reports: Hard of Hearing, Impaired Vision Other HEENT History: wears glasses Cardiovascular History: Reports: Afib, High Cholesterol, Hypertension, Other (See Below) Other Cardiovascular History: secundum atrial septal defect, chronic venous insufficiency, varicose veins, mitral valve regurgitation, dysrhythmia, edema Respiratory History: Reports: COPD, Sleep Apnea Other Respiratory History: uses CPAP Gastrointestinal History: Reports: GERD, Hemorrhoids Genitourinary History: Reports: Urinary Incontinence Other Genitourinary History: hematuria AUTOMATION TECHNOLOGIST History: Reports: Other (See Below) Other AUTOMATION TECHNOLOGIST History: hysterectomy, breast lumpectomy Musculoskeletal History: Reports: Back Pain, Chronic, Osteoarthritis, Osteoporosis Other Musculoskeletal History: spinal stenosis, gait abnormality, myalgia, restless leg syndrome Neurological History: Reports: Other (See Below) Other Neuro History: cerviclagia, dementia, memory loss, CVA Psychiatric History: Reports: Anxiety, Depression, Other (See Below) Endocrine/Metabolic History: Reports: Hypothyroidism, Obesity/BMI 30+ Other Endocrine/Metabolic History: goiter Hematologic History: Reports: Blood Transfusion(s) Immunologic History: Reports: None Oncologic (Cancer) History: Reports: Breast Other Dermatologic History: rash to hands, contact dermatitis, eczema, seborrheic keratosis, skin neoplasm, pyogenic granuloma of skin - Infectious Disease History Infectious Disease History: Reports: Measles, MRSA Other Infectious Disease History: nares 2016 prior to knee surgery - Past Surgical History HEENT Surgical History: Reports: Cataract Surgery GI Surgical History: Reports: Appendectomy, Cholecystectomy, Colonoscopy Female Surgical History: Reports: Hysterectomy Other Endocrine Surgeries/Procedures: thyroid lesion Neurological Surgical History: Reports: Lumbar Spine Musculoskeletal Surgical History: Reports: Carpal Tunnel, Knee Replacement Oncologic Surgical History: Reports: Biopsy of Breast, Other (See Below) Social & Family History - Family History Family Medical History: Noncontributory Endocrine/Metabolic: Reports: Diabetes, Type I Oncologic: Reports: Bladder, Lung, Pancreatic - Tobacco Use Smoking Status *Q: Never Smoker Second Hand Smoke Exposure: No - Caffeine Use Caffeine Use: Reports: Coffee - Recreational Drug Use Recreational Drug Use: No - Living Situation & Occupation Living situation: Reports: , with Spouse Occupation: Retired ED ROS GENERAL - Review of Systems Review Of Systems: See Below Constitutional: Reports: No Symptoms HEENT: Reports: Other (facial swelling and pain) Respiratory: Reports: No Symptoms Cardiovascular: Reports: No Symptoms Endocrine: Reports: No Symptoms GI/Abdominal: Reports: No Symptoms : Reports: No Symptoms Musculoskeletal: Reports: No Symptoms ED EXAM, HEAD INJURY - Physical Exam Exam: See Below Exam Limited By: No Limitations General Appearance: Alert, No Apparent Distress Head: Raccoon Eyes, Other (Edema and ecchymosis of her nose and under both eyes) Ears: Normal External Exam Nose: Other (Edema and ecchymosis) Neck: Non-Tender, Normal Alignment, Normal Inspection Respiratory: No Respiratory Distress, Lungs Clear, Normal Breath Sounds Cardiovascular: Regular Rate, Rhythm, No Edema, No Murmur GI/Abdominal Exam: Soft, Non-Tender, No Organomegaly, No Mass Extremities: Normal Inspection Neurologic: No Motor/Sensory Deficits, Alert, Normal Mood/Affect, Oriented x 3 Course - Vital Signs Last Recorded V/S: Last Vital Signs Temp 97.4 F 03/05/20 13:57 Pulse 55 L 03/05/20 15:20 Resp 16 03/05/20 15:20 BP 116/51 L 03/05/20 15:20 Pulse Ox 95 03/05/20 15:20 - Re-Assessments/Exams Free Text/Narrative Re-Assessment/Exam: 03/05/20 14:26 I have ordered a CT of her head, cervical spine and maxillofacial bones. 03/05/20 15:[address] of her cervical spine shows degenerative change. Nothing acute is appreciated on CT study of the cervical spine. The CT of her facial bones shows minimal mucosal thickening within the paranasal sinuses. Possible small nasal bone fracture within the tip of the nasal bone. This could be old but please correlate if patient is symptomatic to this area. No other acute finding is seen. The CT of her head shows senescent change. Nothing acute is appreciated on noncontrast head CT exam. I will discharge her home. Departure - Departure Time of Disposition: 15:35 Disposition: Home, Self-Care 01 Condition: Good Clinical Impression: Concussion injury of brain Nasal bone fracture Qualifiers: Encounter type: initial encounter Fracture type: closed Qualified Code(s): S02.2XXA - Fracture of nasal bones, initial encounter for closed fracture Facial contusion Qualifiers: Encounter type: initial encounter Qualified Code(s): S00.83XA - Contusion of other part of head, initial encounter Fall Qualifiers: Encounter type: initial encounter Qualified Code(s): W19.XXXA - Unspecified fall, initial encounter - Discharge Information *PRESCRIPTION DRUG MONITORING PROGRAM REVIEWED*: Not Applicable *COPY OF PRESCRIPTION DRUG MONITORING REPORT IN PATIENT RHONDA: Not Applicable Referrals: Adam Street MD [Primary Care Provider] - 1 Week Forms: ED Department Discharge Additional Instructions: Ice your face for 15 minutes 3 times per day for 3 days. Try to sleep with your head up on some pillows for a couple of days. Take tylenol for any pain. P lease return if you are worse. Sepsis Event Note (ED) - Evaluation Sepsis Screening Result: No Definite Risk - Focused Exam Vital Signs: Vital Signs Temp Pulse Resp BP Pulse Ox 03/05/20 15:20 55 L 16 116/51 L 95 03/05/20 13:57 97.4 F 66 16 123/56 L 97
--- NOTE | 2020-03-05 15:03 | CT ---
CT facial bones Technique: Multiple axial axial images were obtained through the facial bones. Reconstructed coronal and sagittal images were reviewed. Findings: Paranasal sinuses shows minimal mucosal thickening of the left sphenoid sinus and ethmoid sinuses. No air-fluid levels are seen within the paranasal sinuses. Mastoid sinuses are clear. There may be a minimal nasal bone fracture within the tip of the nasal bone. No other fracture is appreciated within the facial structures. Impression: 1. Minimal mucosal thickening within the paranasal sinuses. 2. Possible small nasal bone fracture within the tip of the nasal bone. This could be old but please correlate if patient is symptomatic to this area. 3. No other acute finding is seen. Diagnostic code #3 This report was dictated in MDT
--- NOTE | 2020-03-05 15:03 | CT ---
CT cervical spine Technique: Multiple axial sections were obtained from above C2 inferiorly through the bottom of T1. Reconstructed coronal and sagittal images were obtained. Comparison: No prior cervical spine imaging is available. Findings: Mild disc space narrowing is noted at C3-4 and C4-5 with severe disc space narrowing at C5-6 with vacuum phenomena and endplate sclerosis. Minimal spondylolisthesis seen at C3-4 and C4-5 due to degenerative apophyseal change. Minimal spondylolisthesis is also noted at C6-7 due to degenerative apophyseal change. Other degenerative apophyseal change is seen throughout the cervical spine. Degenerative change is noted between the dens and anterior arch of C1. Anterior osteophytes are seen which are most prominent at C5-6. Minimal left-sided neural foraminal stenosis is noted at C5-6. Other neural foramina are patent. No bony central canal stenosis is seen. No fracture is appreciated. Degenerative change is noted within the uncovertebral joints most prominent at C5-6. Impression: 1. Degenerative change as described above. 2. Nothing acute is appreciated on CT study of the cervical spine. Diagnostic code #2 This report was dictated in MDT
--- NOTE | 2020-03-05 15:16 | CT ---
Head CT Technique: Multiple axial sections through the brain were obtained. Intravenous contrast was not utilized. Comparison: No prior intracranial imaging is available. Findings: Ventricles along with basal cisterns and sulci over the convexities are mildly prominent. Diminished density is noted within the periventricular white matter which is most likely due to small vessel ischemic demyelination change. Lacunar infarcts are noted within the right basal ganglia. No other abnormal parenchymal densities are seen. No evidence of intracranial hemorrhage. No midline shift or mass-effect is seen. Bone window settings were reviewed which shows no acute calvarial abnormality. Visualized mastoid sinuses and visualized paranasal sinuses show nothing acute. Impression: 1. Senescent change as noted above. 2. Nothing acute is appreciated on noncontrast head CT exam. Diagnostic code #2 This report was dictated in MDT
[2020-03-05 15:20] VITALS: BP 116/51; PULSE 55
== END 2020-03-05 16:01 | disposition home or self-care (01) ==
LOC: JD.ED 13:48
DX: S06.0X9A Concussion with loss of consciousness of unspecified duration, initial encounter (principal); S02.2XXA Fracture of nasal bones, initial encounter for closed fracture; S00.83XA Contusion of other part of head, initial encounter; I48.91 Unspecified atrial fibrillation; I10 Essential (primary) hypertension; E78.00 Pure hypercholesterolemia, unspecified; E03.9 Hypothyroidism, unspecified; J44.9 Chronic obstructive pulmonary disease, unspecified; E66.9 Obesity, unspecified; Z88.8 Allergy status to other drugs, medicaments and biological substances; Z91.09 Other allergy status, other than to drugs and biological substances; Z79.01 Long term (current) use of anticoagulants; Z79.899 Other long term (current) drug therapy; Z90.710 Acquired absence of both cervix and uterus; Z90.49 Acquired absence of other specified parts of digestive tract; Z98.890 Other specified postprocedural states; W18.30XA Fall on same level, unspecified, initial encounter
CPT/HCPCS: 70450; 70450-26; 70486; 70486-26; 72125; 72125-26; 99283; 99283-25

== ENCOUNTER 2020-03-19 05:58 | Inpatient (IN) | payer MEDICARE, BC ==
[~2020-03-19 05:58] MED LIST changes: -Lidocaine 1% 4 ML ONE; -Propofol 200 MG/20 ML SDV ONE; -fentaNYL 100 MCG/2 ML SDV ONE
[2020-03-19] MEDS ORDERED: Cyclobenzaprine 10 MG Tab PO PRN (06:19)
[2020-03-19] MEDS ORDERED: Morphine 2 MG/ML SYRINGE IVPUSH PRN ×2 (06:20→17:17)
[2020-03-19] MEDS ORDERED: Sennosides 8.6 MG Tab PO PRN (06:20)
[2020-03-19] MEDS ORDERED: Ondansetron 4 MG/2 ML SDV IVPUSH PRN (06:20)
[2020-03-19] MEDS ORDERED: Bisacodyl 5 MG Tab PO PRN (06:20)
[2020-03-19] MEDS ORDERED: Naloxone 0.4 MG/ML SDV IVPUSH PRN (06:20)
[2020-03-19] MEDS ORDERED: Bupivacaine 0.25% 10 ML SDV ONE (06:26)
[2020-03-19] MEDS ORDERED: Famotidine 20 MG Tab PO SCH (06:30)
[2020-03-19] MEDS ORDERED: ceFAZolin 2 GM in Premix Bag 1 BAG IV SCH (06:30)
--- NOTE | 2020-03-19 06:42 | PCM.PREANE ---
Preanesthetic Assessment - Procedure Proposed Procedure: Left total knee arthroplasty - Anesthesia/Transfusion/Family Hx Anesthesia History: Prior Anesthesia Without Reaction Family History of Anesthesia Reaction: No Transfusion History: Prior Transfusion Without Reaction Intubation History: Unknown - Review of Systems General: Fatigue Pulmonary: No Symptoms Cardiovascular: Dyspnea on Exertion Gastrointestinal: No Symptoms Neurological: Numbness ("fingers at times"), Difficulty Walking (walks with walker) Other: Reports: Easy Bleeding, Easy Bruising, Thyroid Problems (hypthyroid), Neck Pain ("arthritis") - Physical Assessment NPO Status Date: 03/18/20 NPO Status Time: 00:00 Vital Signs: Last Vital Signs Temp 36.2 C 03/19/20 06:05 Pulse 61 03/19/20 06:05 Resp 16 03/19/20 06:05 BP 120/51 L 03/19/20 06:05 Pulse Ox 94 L 03/19/20 06:05 Height: 1.63 m Weight: 92.986 kg ASA Class: 3 Mental Status: Alert & Oriented x3 Airway Class: Mallampati = 2 Dentition: Reports: Broken Tooth/Teeth, Missing Tooth/Teeth, Caries Thyro-Mental Finger Breadths: 2 Mouth Opening Finger Breadths: 2 ROM/Head Extension: Limited/Partial (arthritis) Lungs: Clear to Auscultation, Normal Respiratory Effort Cardiovascular: Irregular Rhythm - Lab Values: Laboratory Last Values COVID-19 PCR Not detected (NOT DETECT) 03/15/20 09:00 MRSA (PCR) Negative 02/29/20 15:31 - Imaging/EKG Impressions: EKG SR rate 55 - Allergies Allergies/Adverse Reactions: Allergies Allergy/AdvReac Type Severity Reaction Status Date / Time adhesive Allergy Intermediate Hives Verified 03/18/20 19:29 - Anesthesia Plan Pre-Op Medication Ordered: Beta Rj Beta Rj: Atenolol Med Last Dose Date: 03/19/20 Med Last Dose Time: 05:30 - Acknowledgements Anesthesia Type Planned: Spinal Pt an Appropriate Candidate for the Planned Anesthesia: Yes Alternatives and Risks of Anesthesia Discussed w Pt/Guardian: Yes Pt/Guardian Understands and Agrees with Anesthesia Plan: Yes PreAnesthesia Questionnaire HEENT History: Reports: Cataract, Hard of Hearing, Impaired Vision Other HEENT History: wears glasses, tongue papilloma, mastodynia, arterial occlusion of retina, throat pain Cardiovascular History: Reports: Afib, Blood Clots/VTE/DVT, Heart Failure, High Cholesterol, Hypertension, PVD, Other (See Below) Other Cardiovascular History: secundum atrial septal defect, chronic venous insufficiency, varicose veins, mitral valve regurgitation, dysrhythmia, edema Respiratory History: Reports: COPD, Sleep Apnea, SOB Other Respiratory History: uses CPAP Gastrointestinal History: Reports: GERD, Hemorrhoids, Other (See Below) Other Gastrointestinal History: abdominal pain, reflux Genitourinary History: Reports: Urinary Incontinence Other Genitourinary History: hematuria CARE PROCESS MANAGER History: Reports: Other (See Below) Other OB/BYN History: hysterectomy, breast lumpectomy Musculoskeletal History: Reports: Back Pain, Chronic, Osteoarthritis, Osteoporosis Other Musculoskeletal History: spinal stenosis, gait abnormality, myalgia, restless leg syndrome, myalgia, myositis, joint pain, cartilage/bone disorder Neurological History: Reports: Other (See Below) Other Neuro History: cerviclagia, dementia, memory loss, CVA Psychiatric History: Reports: Anxiety, Depression, Other (See Below) Endocrine/Metabolic History: Reports: Hypothyroidism, Obesity/BMI 30+, Osteopenia Other Endocrine/Metabolic History: goiter, thyroid nodule, thyroid neoplasm Hematologic History: Reports: Blood Transfusion(s) Immunologic History: Reports: None Oncologic (Cancer) History: Reports: Breast Other Dermatologic History: rash to hands, contact dermatitis, eczema, seborrheic keratosis, skin neoplasm, pyogenic granuloma of skin, venous stasis ulcer, lipoma - Infectious Disease History Infectious Disease History: Reports: Measles, MRSA Other Infectious Disease History: nares 2016 prior to knee surgery - Past Surgical History Head Surgeries/Procedures: Reports: None HEENT Surgical History: Reports: Cataract Surgery Cardiovascular Surgical History: Reports: Varicose Respiratory Surgical History: Reports: None GI Surgical History: Reports: Appendectomy, Cholecystectomy, Colonoscopy Female Surgical History: Reports: Hysterectomy Male Surgical History: Reports: None Other Endocrine Surgeries/Procedures: thyroid lesion Neurological Surgical History: Reports: Lumbar Spine Musculoskeletal Surgical History: Reports: Carpal Tunnel, Knee Replacement Other Musculoskeletal Surgeries/Procedures:: back surgery, bilateral carpal tunnel surgery, lumbar laminectomy with spinal stenosis decompression, osteopenia, restless leg syndrome, sciatica, spinal stenosis Oncologic Surgical History: Reports: Biopsy of Breast, Mastectomy - SUBSTANCE USE Smoking Status *Q: Never Smoker Second Hand Smoke Exposure: No Days Per Week of Alcohol Use: 0 Number of Drinks Per Day: 0 Total Drinks Per Week: 0 Recreational Drug Use History: No - HOME MEDS Home Medications: Home Meds Budesonide/Formoterol [Symbicort 160-4.5 MCG] 2 puff INH BID 09/28/15 [History] Cholecalciferol (Vitamin D3) [Vitamin D3] 3,000 units PO DAILY 09/28/15 [History] Levothyroxine [Synthroid] 50 mcg PO DAILY 09/28/15 [History] Apixaban [Eliquis] 5 mg PO BID 12/27/16 [History] Diltiazem [Cardizem CD] 180 mg PO DAILY 02/12/17 [History] Furosemide 20 mg PO DAILY 03/25/18 [History] Spironolactone [Aldactone] 25 mg PO DAILY 03/25/18 [History] atenoloL [Atenolol] 50 mg PO DAILY 03/25/18 [History] Rosuvastatin [Crestor] 10 mg PO DAILY 03/26/18 [History] Ubidecarenone [Co Q-10] 100 mg PO DAILY 03/05/20 [History] Acetaminophen [Tylenol] 650 mg PO Q4H PRN 03/18/20 [History] Anastrozole [Arimidex] 1 mg PO DAILY 03/18/20 [History] Potassium Chloride 40 meq PO DAILY 03/18/20 [History] Calcium Citrate/Vitamin D3 [Calcium Citrate - Vit D Caplet] 1 tab PO DAILY 03/19/20 [History] Montelukast [Singulair] 10 mg PO BEDTIME 03/19/20 [History] dilTIAZem HCL [Diltiazem 24Hr ER (Cd)] 180 mg PO DAILY 03/19/20 [History] - CURRENT (IN HOUSE) MEDS Current Meds: Current Medications Hydrocodone Bitart/Acetaminophen (Bath 325-5 Mg) 1 - 2 tab PO Q4H PRN PRN Reason: Pain Bisacodyl (Dulcolax) 5 mg PO DAILY PRN PRN Reason: Constipation Morphine Sulfate 8 mg/Epinephrine HCl 0.3 mg/Cefuroxime Sodium 750 mg/Ketorolac Tromethamine 30 mg/Sodium Chloride 7.9 ml 0 mg .XX ASDIRECTED PRN PRN Reason: Pain Cyclobenzaprine HCl (Flexeril) 5 mg PO BID PRN PRN Reason: Spasms Docusate Sodium (Colace) 100 mg PO BID [facility] Famotidine (Pepcid) 20 mg PO Q12H [facility] Lactated Ringer's (Ringers, Lactated) 1,000 mls @ 125 mls/hr IV ASDIRECTED [facility] Stop: 03/19/20 23:00 Last Admin: 03/19/20 06:30 Dose: 125 mls/hr Documented by: Cefazolin Sodium/Dextrose 2 gm (/ Premix) 50 mls @ 100 mls/hr IV Q8H [facility] Stop: 03/19/20 22:59 Lidocaine/Sodium Bicarbonate (Buffered Lidocaine 1% In Ns 8.4%) 0.25 ml IDERM ONETIME PRN PRN Reason: Prior to IV Start Stop: 03/19/20 18:00 Last Admin: 03/19/20 06:30 Dose: 0.25 ml Documented by: Morphine Sulfate (Morphine) 2 mg IVPUSH Q2H PRN PRN Reason: Breakthrough Pain Naloxone HCl (Narcan) 0.1 mg IVPUSH Q5M PRN PRN Reason: Oversedation Ondansetron HCl (Zofran) 4 mg IVPUSH Q6H PRN PRN Reason: Nausea/Vomiting Senna (Senna) 8.6 mg PO BID PRN PRN Reason: Constipation Sodium Chloride (Saline Flush) 10 ml FLUSH ASDIRECTED PRN PRN Reason: Keep Vein Open Stop: 03/19/20 18:00 Discontinued Medications Bupivacaine HCl (Sensorcaine-Mpf 0.25%) Confirm Administered Dose 30 ml .ROUTE .STK-MED ONE Stop: 03/19/20 06:10 Bupivacaine HCl (Sensorcaine-Mpf 0.25%) Confirm Administered Dose 10 ml .ROUTE .STK-MED ONE Stop: 03/19/20 06:27 Cefazolin Sodium (Ancef) Confirm Administered Dose 2 gm .ROUTE .STK-MED ONE Stop: 03/19/20 06:11 Iodine (Iodine 2% Mild Tincture) Confirm Administered Dose 30 ml .ROUTE .STK-MED ONE Stop: 03/19/20 06:10 Tranexamic Acid (Cyklokapron) Confirm Administered Dose 1,000 mg .ROUTE .STK-MED ONE Stop: 03/19/20 06:10 Vancomycin HCl (Vancomycin) Confirm Administered Dose 1 gm .[address] .[facility] ONE Stop: 03/19/20 06:10
[2020-03-19] MEDS ORDERED: Ondansetron 4 MG/2 ML SDV ONE (06:53)
[2020-03-19] MEDS ORDERED: Propofol 200 MG/20 ML SDV ONE ×2 (06:53→08:08)
[2020-03-19] MEDS ORDERED: ceFAZolin 1 GM Vial ONE (06:54)
[2020-03-19] MEDS ORDERED: Lidocaine 1% 4 ML ONE (06:54)
[2020-03-19] MEDS ORDERED: fentaNYL 100 MCG/2 ML SDV ONE (06:54)
[2020-03-19] MEDS ORDERED: ePHEDrine Sulfate/0.9% NaCl/Pf 25 MG/5 ML SYRINGE IV ONE (07:21)
[2020-03-19] MEDS: Iodine/Sodium Iodide 2% Tincture 30 ML Bottle ONE ×2 (07:50→08:31)
[2020-03-19] MEDS: ceFAZolin 1 GM Vial ONE ×2 (07:51→08:34)
[2020-03-19] MEDS: Bupivacaine 0.25% 10 ML SDV ONE ×2 (07:52→08:39)
[2020-03-19] MEDS: Morphine 8 MG, EPINEPHrine 0.3 MG, Cefuroxime 750 MG, Ketorolac 30 MG, Sodium Chloride ... PRN ×10 (07:52→08:39)
[2020-03-19] MEDS: Vancomycin 1 GM SDV ONE ×2 (07:53→08:40)
[2020-03-19] MEDS ORDERED: EPINEPHrine 1 MG/ML SDV ONE (09:05)
[2020-03-19] MEDS ORDERED: Ropivacaine 0.5% 5 MG/ML 30 ML SDV ONE (09:05)
--- NOTE | 2020-03-19 09:13 | PCM.POSTAN ---
POST ANESTHESIA ASSESSMENT - MENTAL STATUS Mental Status: Alert, Oriented - VITAL SIGNS Vital Signs: Last Vital Signs Temp 36.6 C 03/19/20 09:04 Pulse 61 03/19/20 06:05 Resp 14 03/19/20 09:04 BP 90/55 L 03/19/20 09:04 Pulse Ox 90 L 03/19/20 09:04 - RESPIRATORY Respiratory Status: Respiratory Rate WNL, Airway Patent, O2 Saturation Stable, Supplemental Oxygen - CARDIOVASCULAR CV Status: Pulse Rate WNL, Blood Pressure Stable - GASTROINTESTINAL GI Status: No Symptoms - PAIN Pain Score: 0 - POST OP HYDRATION Hydration Status: Adequate & Stable - OBSERVATIONS Free Text/Narrative:: no anesthesia complications noted
[2020-03-19] MEDS ORDERED: fentaNYL 100 MCG/2 ML SDV IVPUSH STA (09:34)
--- NOTE | 2020-03-19 09:34 | PCM.OPNOTE ---
- General Post-Op/Procedure Note Date of Surgery/Procedure: 03/19/20 Operative Procedure(s): left total knee arthroplasty Pre Op Diagnosis: left knee osteoarthrosis Post-Op Diagnosis: Same Anesthesia Technique: Local, MAC, Spinal Primary Surgeon: Emeterio Devries Anesthesia Provider: Filipe Olivarez Tester Equipment: Nadine Aviles Tester Equipment: Mamta Shoemaker in mLs: 5 Complications: None Condition: Good Free Text/Narrative:: / 9mm 32x10
--- NOTE | 2020-03-19 09:51 | PCM.SN.2 ---
- Free Text/Narrative Note: Left selective femoral nerve block at the adductor canal for post-procedure pain control under US guidance requested by Dr. Devries. Date: 03/19/2020 Time Out: 921 Start: 921 End: 929 Chart reviewed. Consent signed. Questions answered. Appropriate monitors applied. Time out performed. Left mid-shaft femur identified with ultrasound, scanning medially of femur, the femoral artery in the adductor canal visualized, and the femoral nerve located laterally to the artery. The skin was prepped lateral to the ultrasound probe with chlorahexadine times two. The 21ga 4 insulated block needle was inserted under direct ultrasound guidance into the adductor canal. 25mL of 0.5% ropivacaine with 1:200,000 epinephrine was injected circumferentially around the nerve with intermittent negative aspiration noted. Patient tolerated the procedure well. Sterile technique noted along with sterile gloves, mask, and sterile probe cover. See picture on progress note and vital signs on nurses notes. Block completed in PACU. Filipe Olivarez CRNA
[2020-03-19] MEDS: Acetaminophen/HYDROcodone 325-5 MG Tab PO PRN ×2 (10:27→15:46)
[2020-03-19] MEDS ORDERED: Lactated Ringers 1,000 ML ONE (10:59)
--- NOTE | 2020-03-19 11:12 | PCM.CONS ---
H&P History of Present Illness - General Date of Service: 03/19/20 Admit Problem/Dx: Admission Diagnosis/Problem Admission Diagnosis/Problem Osteoarthritis of knee, s/p left total knee arthroplasty - History of Present Illness Initial Comments - Free Text/Narative: The patient is an 89 yo female, PCP Dr. Street, with a past medical history as stated below. She is admitted to the hospital today under Dr. Devries, orthopedic surgeon, after undergoing left total knee arthroplasty. The patient has experienced falls and pain due to severe osteoarthritis. The patient has an extensive past medical history and the hospitalist team was consulted for medical management during the post operative period. The patient states the last time she took eliquis for atrial fibrillation was 5 days ago. She denies history of internal bleeding or blood clotting. She does have history of small stroke with no obvious residual effects. No history of cardiac surgeries. She does not use oxygen during the day, uses CPAP at night for sleep apnea. Uses a walker at home. The patient denies recent illness, no cough, no fevers and no chills. No shortness of breath, palpitations, chest pain, nausea, diarrhea. No dizziness or lightheadedness. She does have trouble with constipation. - Related Data Allergies/Adverse Reactions: Allergies Allergy/AdvReac Type Severity Reaction Status Date / Time adhesive Allergy Intermediate Hives Verified 03/19/20 11:33 Home Medications: Home Meds Budesonide/Formoterol [Symbicort 160-4.5 MCG] 2 puff INH BID 09/28/15 [History] Cholecalciferol (Vitamin D3) [Vitamin D3] 3,000 units PO DAILY 09/28/15 [History] Levothyroxine [Synthroid] 50 mcg PO DAILY 09/28/15 [History] Apixaban [Eliquis] 5 mg PO BID 12/27/16 [History] Diltiazem [Cardizem CD] 180 mg PO DAILY 02/12/17 [History] Furosemide 20 mg PO DAILY 03/25/18 [History] Spironolactone [Aldactone] 25 mg PO DAILY 03/25/18 [History] atenoloL [Atenolol] 50 mg PO DAILY 03/25/18 [History] Rosuvastatin [Crestor] 10 mg PO DAILY 03/26/18 [History] Ubidecarenone [Co Q-10] 100 mg PO DAILY 03/05/20 [History] Acetaminophen [Tylenol] 650 mg PO Q6HR PRN 03/18/20 [History] Anastrozole [Arimidex] 1 mg PO DAILY 03/18/20 [History] Potassium Chloride 20 meq PO DAILY 03/18/20 [History] Calcium Citrate/Vitamin D3 [Calcium Citrate - Vit D Caplet] 1 tab PO BID 03/19/20 [History] Montelukast [Singulair] 10 mg PO BEDTIME 03/19/20 [History] Past Medical History HEENT History: Reports: Cataract, Hard of Hearing, Impaired Vision Other HEENT History: wears glasses, tongue papilloma, mastodynia, arterial occlusion of retina, throat pain Cardiovascular History: Reports: Afib, Blood Clots/VTE/DVT, Heart Failure, High Cholesterol, Hypertension, PVD, Other (See Below) Other Cardiovascular History: secundum atrial septal defect, chronic venous insufficiency, varicose veins, mitral valve regurgitation, paroxysmal atrial fibrillation, edema Respiratory History: Reports: COPD, Sleep Apnea, SOB Other Respiratory History: uses CPAP Gastrointestinal History: Reports: GERD, Hemorrhoids, Other (See Below) Other Gastrointestinal History: abdominal pain, reflux Genitourinary History: Reports: Urinary Incontinence Other Genitourinary History: hematuria 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: Other (See Below) Other OB/BYN History: hysterectomy, breast lumpectomy Musculoskeletal History: Reports: Back Pain, Chronic, Osteoarthritis, Osteoporosis Other Musculoskeletal History: spinal stenosis, gait abnormality, myalgia, restless leg syndrome, myalgia, myositis, joint pain, cartilage/bone disorder Neurological History: Reports: Other (See Below) Other Neuro History: cerviclagia, dementia, memory loss, CVA Psychiatric History: Reports: Anxiety, Depression, Other (See Below) Endocrine/Metabolic History: Reports: Hypothyroidism, Obesity/BMI 30+, Osteopenia Other Endocrine/Metabolic History: goiter, thyroid nodule, thyroid neoplasm Hematologic History: Reports: Blood Transfusion(s) Immunologic History: Reports: None Oncologic (Cancer) History: Reports: Breast Other Dermatologic History: rash to hands, contact dermatitis, eczema, seborrheic keratosis, skin neoplasm, pyogenic granuloma of skin, venous stasis ulcer, lipoma - Infectious Disease History Infectious Disease History: Reports: Measles, MRSA Other Infectious Disease History: narmissy 2016 prior to knee surgery - Past Surgical History Head Surgeries/Procedures: Reports: None HEENT Surgical History: Reports: Cataract Surgery Cardiovascular Surgical History: Reports: Varicose Respiratory Surgical History: Reports: None GI Surgical History: Reports: Appendectomy, Cholecystectomy, Colonoscopy Female Surgical History: Reports: Hysterectomy Male Surgical History: Reports: None Other Endocrine Surgeries/Procedures: thyroid lesion Neurological Surgical History: Reports: Lumbar Spine Musculoskeletal Surgical History: Reports: Carpal Tunnel, Knee Replacement Other Musculoskeletal Surgeries/Procedures:: back surgery, bilateral carpal tunnel surgery, lumbar laminectomy with spinal stenosis decompression, osteopenia, restless leg syndrome, sciatica, spinal stenosis Oncologic Surgical History: Reports: Biopsy of Breast, Mastectomy Social & Family History - Family History Family Medical History: Noncontributory Endocrine/Metabolic: Reports: Diabetes, Type I Oncologic: Reports: Bladder, Lung, Pancreatic - Tobacco Use Smoking Status *Q: Never Smoker Second Hand Smoke Exposure: No - Caffeine Use Caffeine Use: Reports: Coffee, Tea - Alcohol Use Days Per Week of Alcohol Use: 0 Number of Drinks Per Day: 0 Total Drinks Per Week: 0 - Recreational Drug Use Recreational Drug Use: No - Living Situation & Occupation Living situation: Reports: , with Spouse Occupation: Retired H&P Review of Systems - Review of Systems: Review Of Systems: See Below General: Reports: Weakness. Denies: Fever, Chills HEENT: Reports: Other (hard of hearing). Denies: Ear Pain, Headaches, Sore Throat Pulmonary: Denies: Shortness of Breath, Wheezing, Pleuritic Chest Pain, Cough Cardiovascular: Reports: Edema (after legs are down for a long time). Denies: Chest Pain, Palpitations, Orthopnea Gastrointestinal: Reports: Constipation. Denies: Abdominal Pain, Black Stool, Bloody Stool, Diarrhea Genitourinary: Reports: Incontinence. Denies: Dysuria, Frequency, Burning Musculoskeletal: Reports: Leg Pain (Left knee pain 3/10 ) Neurological: Reports: Other (intermittent tingling in fingers/hands when using walker). Denies: Confusion, Dizziness, Headache Hematologic/Lymphatic: Reports: Easy Bleeding, Easy Bruising Exam - Exam Exam: See Below - Vital Signs Vital Signs: Last Vital Signs Temp 97.6 F 03/19/20 09:59 Pulse 61 03/19/20 06:05 Resp 10 L 03/19/20 09:59 BP 124/54 L 03/19/20 09:59 Pulse Ox 94 L 03/19/20 09:59 Weight: 205 lb - Exam General: Alert, Oriented, Cooperative HEENT: Conjunctiva Clear, Mucosa Moist & Alvarado, Pupils Equal, Pupils Reactive, Other (Patient very hard of hearing) Neck: Supple, Trachea Midline Lungs: Clear to Auscultation, Normal Respiratory Effort. No: Crackles, Rales, Wheezing Cardiovascular: Regular Rate, Regular Rhythm, Other (HR 68 on evaluation) GI/Abdominal Exam: Soft, Non-Tender, No Distention, Other (hypoactive bowel sounds) Extremities: Normal Inspection, No Pedal Edema, Normal Capillary Refill, Other (Left knee in ADDY bandage) - Patient Data Imaging Impressions Last 24 hrs: Myocardial stress test performed on 01/11/2020 shows LVEF of 70%, minimal reversible defect within anteroapical wall, otherwise no additional abnormality is appreciated on Cardiolite portion of cardiac stress test. Sepsis Event Note - Evaluation Sepsis Screening Result: No Definite Risk - Focused Exam Vital Signs: Vital Signs Temp Pulse Resp BP Pulse Ox Pulse Ox 03/19/20 09:59 97.6 F 10 L 124/54 L 95 94 L 03/19/20 09:45 12 122/58 L 94 L 03/19/20 09:30 10 L 119/55 L 94 L 03/19/20 09:15 12 97/53 L 93 L 03/19/20 09:04 97.8 F 14 90/55 L 90 L 90 L 03/19/20 06:05 97.1 F 61 16 120/51 L 94 L Consult PN Assessment/Plan POD#: 0 (1) Osteoarthritis SNOMED Code(s): 160615764 Code(s): M19.90 - UNSPECIFIED OSTEOARTHRITIS, UNSPECIFIED SITE Current Visit: Yes Qualifiers: Osteoarthritis location: multiple joints Osteoarthritis type: primary Qualified Code(s): M89.49 - Other hypertrophic osteoarthropathy, multiple sites (2) Paroxysmal atrial fibrillation SNOMED Code(s): 958970973 Code(s): I48.0 - PAROXYSMAL ATRIAL FIBRILLATION Current Visit: Yes (3) COPD (chronic obstructive pulmonary disease) SNOMED Code(s): 04213654 Code(s): J44.9 - CHRONIC OBSTRUCTIVE PULMONARY DISEASE, UNSPECIFIED Current Visit: Yes (4) Hypothyroidism SNOMED Code(s): 23468794 Code(s): E03.9 - HYPOTHYROIDISM, UNSPECIFIED Current Visit: Yes (5) HX: breast cancer SNOMED Code(s): 263667328 Code(s): Z85.3 - PERSONAL HISTORY OF MALIGNANT NEOPLASM OF BREAST Current Visit: Yes (6) Hypercholesterolemia SNOMED Code(s): 77610716 Code(s): E78.00 - PURE HYPERCHOLESTEROLEMIA, UNSPECIFIED Current Visit: Yes (7) Vitamin D deficiency SNOMED Code(s): 60526734 Code(s): E55.9 - VITAMIN D DEFICIENCY, UNSPECIFIED Current Visit: Yes (8) Sleep apnea in adult SNOMED Code(s): 50223249 Code(s): G47.30 - SLEEP APNEA, UNSPECIFIED Current Visit: Yes (9) Constipation SNOMED Code(s): 46713812 Code(s): K59.00 - CONSTIPATION, UNSPECIFIED Current Visit: Yes Qualifiers: Qualified Code(s): K59.03 - Drug induced constipation Problem List Initiated/Reviewed/Updated: Yes Plan: Osteoarthritis s/p left knee arthroplasty POD 0 PLAN -Patient is admitted to hospital under Dr. Devries, orthopedic surgeon -PT ordered -Pain management as stated below -Will help coordinate if stay with long term or shelter for rehab will be needed -DVT prophylaxis per Orthopedic surgery Cardiovascular risk assessment GSCRI reveals 6.5% risk of perioperative myocardial infarction or cardiac arrest. Stress test performed on 01/11/2020 shows LVEF of 70%, minimal reversible defect within anteroapical wall, otherwise no additional abnormality appreciated. PLAN -Checking EKG and cardiac enzymes after surgery. -Recommend resuming anticoagulation within 24 hours after surgery. Paroxysmal atrial fibrillation On Eliquis 5mg oral BID at home, last dose 5 days ago On diltiazem 180mg po daily and atenolol 50mg oral daily at home PLAN -Continue diltiazem 180mg po daily. Hold atenolol for now. -EKG and cardiac enzymes after surgery COPD No wheezes on auscultation. Pt does not use O2 at home. Takes Symbicort twice a day at home PLAN Continue symbicort two puffs twice a day Will wean from postoperative 2L by NC. Hx Breast cancer Home medicine of anastrazole 1mg oral daily at home. PLAN -Holding home anastrazole. -Follow up with oncologist at previously scheduled appointment for next month. Hypothyroidism TSH last checked in 2017 in our system. Home med is levothyroxine 50mcg daily PLAN -Holding home levothyroxine. -Will call PCP to check latest thyroid panel and if not checked, will check here. Vitamin D deficiency Pt takes Vitamin D3 3000u daily at home PLAN -Continue vitamin D supplementation. Hypercholesterolemia Home medication is rosuvastatin 10mg oral daily PLAN -Holding statin. Patient is out of window for therapeutic benefits. -Patient will discuss continuing statin with PCP after discharge. LE dependent edema Home medications of spironolactone 25mg oral daily and lasix 20mg oral daily. PLAN -Holding lasix and spironolactone for now. -Will monitor fluid status and give lasix IV push as needed for fluid overload. Sleep Apnea CPAP at home PLAN -Continue CPAP with home settings. Constipation Pt states she takes OTC laxatives daily or she does not have BM. Last BM was 08/16 AM. PLAN -Per orthopedic surgery. Colace BID scheduled, Senna as needed twice a day for constipation, bisacodyl suppository daily as needed. -Up and moving with PT. Hx of stroke No obvious residual effects Patient eats regular diet without reported aspiration, choking PLAN -recommend restarting anticoagulation within 24 hours after surgery -PT will evaluate Pain control. Per Orthopedic surgery. Tylenol, Lortab 5/325 1-2tabs q4h as needed moderate pain and morphine 2g IV q2h prn severe pain. GI prophylaxis. Per orthopedic surgery- pepcid 20mg oral BID. Zofran 4mg IV q4h as needed for nausea. DVT prophylaxis. Patient is on eliquis 5mg po BID at home. Hospital DVT prophylaxis per orthopedic surgery. Disposition. She will work with physical therapy to further assess if patient will need further work with rehabilitation at long term/swing bed or if patient will be strong enough to DC to home. Social. Pt lives at home with her . She uses a 4 wheeled walker at home. At last hospitalization, patient had to go to [facility] for short rehabilitation.
--- NOTE | 2020-03-19 13:05 | CR ---
Left knee: AP and lateral views of the left knee were obtained. Comparison: Prior left knee study of 05/19/11. Left knee prosthesis is seen. Components are aligned. Underlying bony structures are intact. Soft tissue air is noted from the surgical procedure. Impression: 1. Satisfactory postop radiographic appearance of recently placed left knee prosthesis. Diagnostic code #2 This report was dictated in MDT
[2020-03-19] MEDS: ceFAZolin 2 GM in Premix Bag 1 BAG IV SCH ×2 (15:32→22:57)
[2020-03-19] MEDS: Lactated Ringers 1,000 ML IV SCH (18:00)
[2020-03-19] MEDS: Montelukast 10 MG Tab PO SCH (21:44)
[2020-03-19] MEDS: Famotidine 20 MG Tab PO SCH (21:45)
[2020-03-19] MEDS: Docusate Sodium 100 MG Cap PO SCH (21:47)
[2020-03-19] MEDS: BUDESONIDE INH SCH (23:08)
[2020-03-19] MEDS: FORMOTEROL INH SCH (23:08)
[2020-03-20] MEDS: Acetaminophen/HYDROcodone 325-5 MG Tab PO PRN (06:44)
[2020-03-20] MEDS: ceFAZolin 2 GM in Premix Bag 1 BAG IV SCH (06:45)
--- NOTE | 2020-03-20 08:08 | PCM.SURGPN ---
- General Info Date of Service: 03/20/20 POD#: 1 Functional Status: Reports: Pain Controlled, Tolerating Diet, Ambulating, Urinating, Incentive Spirometry, Other (The pt is requiring assistance with mobility.) - Patient Data Vitals - Most Recent: Last Vital Signs Temp 97.3 F 03/19/20 21:40 Pulse 61 03/20/20 03:38 Resp 16 03/20/20 03:38 BP 108/47 L 03/20/20 03:38 Pulse Ox 94 L 03/20/20 03:38 Weight - Most Recent: 204 lb 12.8 oz I&O - Last 24 Hours: Intake & Output 03/19/20 03/20/20 03/20/20 22:59 06:59 14:59 Intake Total 1170 1450 Balance 1170 1450 Lab Results Last 24 Hrs: Laboratory Results - last 24 hr 03/20/20 03/20/20 Range/Units 06:20 06:20 WBC 6.09 (3.98-10.04) K/mm3 RBC 4.43 (3.98-5.22) M/mm3 Hgb 12.8 (11.2-15.7) gm/dl Hct 41.2 (34.1-44.9) % MCV 93.0 D (79.4-94.8) fl MCH 28.9 (25.6-32.2) pg MCHC 31.1 L (32.2-35.5) g/dl RDW Std Deviation 47.5 H (36.4-46.3) fL Plt Count 118 L D (182-369) K/mm3 MPV 10.9 (9.4-12.3) fl Sodium 139 D (136-145) mEq/L Potassium 4.3 (3.5-5.1) mEq/L Chloride 104 (98-107) mEq/L Carbon Dioxide 27 (21-32) mEq/L Anion Gap 12.3 (5-15) BUN 21 H (7-18) mg/dL Creatinine 1.1 H (0.55-1.02) mg/dL Est Cr Clr Drug Dosing 30.53 mL/min Estimated GFR (MDRD) 47 (>60) mL/min BUN/Creatinine Ratio 19.1 H (14-18) Glucose 84 (83-115) mg/dL Calcium 9.1 (8.5-10.1) mg/dL Phosphorus 4.2 (2.6-4.7) mg/dL Magnesium 2.1 (1.8-2.4) mg/dl Total Bilirubin 1.6 H (0.2-1.0) mg/dL AST 69 H (15-37) U/L ALT 58 (14-59) U/L Alkaline Phosphatase 139 H (46-116) U/L Creatine Kinase 405 H (26-192) U/L Troponin I < 0.017 (0.00-0.056) ng/mL Total Protein 6.9 (6.4-8.2) g/dl Albumin 3.2 L (3.4-5.0) g/dl Globulin 3.7 gm/dL Albumin/Globulin Ratio 0.9 L (1-2) Med Orders - Current: Current Medications Hydrocodone Bitart/Acetaminophen ([place] 325-5 Mg) 1 tab PO Q4H PRN PRN Reason: Pain (moderate 4-6) Last Admin: 03/20/20 06:44 Dose: 1 tab Documented by: Apixaban (Eliquis) 5 mg PO BID [facility] Bisacodyl (Dulcolax) 5 mg PO DAILY PRN PRN Reason: Constipation Cholecalciferol (Vitamin D3) 75 mcg PO DAILY [facility] Cyclobenzaprine HCl (Flexeril) 5 mg PO BID PRN PRN Reason: Spasms Diltiazem HCl (Cardizem Cd) 180 mg PO DAILY [facility] Docusate Sodium (Colace) 100 mg PO BID [facility] Last Admin: 03/19/20 21:47 Dose: 100 mg Documented by: Famotidine (Pepcid) 20 mg PO Q12H [facility] Last Admin: 03/19/20 21:45 Dose: 20 mg Documented by: Lactated Ringer's (Ringers, Lactated) 1,000 mls @ 75 mls/hr IV ASDIRECTED [facility] Last Admin: 03/19/20 18:00 Dose: 75 mls/hr Documented by: Montelukast Sodium (Singulair) 10 mg PO BEDTIME [facility] Last Admin: 03/19/20 21:44 Dose: 10 mg Documented by: Morphine Sulfate (Morphine) 1 mg IVPUSH Q2H PRN PRN Reason: Pain (severe 7-10) Naloxone HCl (Narcan) 0.1 mg IVPUSH Q5M PRN PRN Reason: Oversedation Budesonide/Formoterol 2 Puff Ptom 2 puff INH BID [facility] Last Admin: 03/19/20 23:08 Dose: Not Given Documented by: Ondansetron HCl (Zofran) 4 mg IVPUSH Q6H PRN PRN Reason: Nausea/Vomiting Senna (Senna) 8.6 mg PO BID PRN PRN Reason: Constipation Discontinued Medications Hydrocodone Bitart/Acetaminophen ([place] 325-5 Mg) 1 - 2 tab PO Q4H PRN PRN Reason: Pain Last Admin: 03/19/20 15:46 Dose: 1 tab Documented by: Atenolol (Tenormin) 50 mg PO DAILY [facility] Bupivacaine HCl (Sensorcaine-Mpf 0.25%) Confirm Administered Dose 20 ml .ROUTE .STK-MED ONE Stop: 03/19/20 06:10 Last Admin: 03/19/20 08:39 Dose: 30 ml Documented by: Bupivacaine HCl (Sensorcaine-Mpf 0.25%) Confirm Administered Dose 10 ml .ROUTE .STK-MED ONE Stop: 03/19/20 06:27 Cefazolin Sodium (Ancef) Confirm Administered Dose 2 gm .ROUTE .STK-MED ONE Stop: 03/19/20 06:11 Last Admin: 03/19/20 08:34 Dose: 2 gm Documented by: Cefazolin Sodium (Ancef) Confirm Administered Dose 2 gm .ROUTE .STK-MED ONE Stop: 03/19/20 06:55 Morphine Sulfate 8 mg/Epinephrine HCl 0.3 mg/Cefuroxime Sodium 750 mg/Ketorolac Tromethamine 30 mg/Sodium Chloride 7.9 ml 0 mg .XX ASDIRECTED PRN PRN Reason: Pain Stop: 03/19/20 12:00 Last Admin: 03/19/20 08:39 Dose: 788.3 mg Documented by: Ephedrine Sulfate (Ephedrine 25 Mg/5 Ml Syringe) Confirm Administered Dose 25 mg IV .STK-MED ONE Stop: 03/19/20 07:22 Epinephrine HCl (Adrenalin) Confirm Administered Dose 1 mg .ROUTE .STK-MED ONE Stop: 03/19/20 09:06 Famotidine (Pepcid) 20 mg PO Q12H [facility] Fentanyl (Sublimaze) Confirm Administered Dose 100 mcg .ROUTE .STK-MED ONE Stop: 03/19/20 06:55 Fentanyl (Sublimaze) 50 mcg IVPUSH STAT STA Stop: 03/19/20 09:35 Last Admin: 03/19/20 09:41 Dose: 50 mcg Documented by: Lactated Ringer's (Ringers, Lactated) 1,000 mls @ 125 mls/hr IV ASDIRECTED [facility] Stop: 03/19/20 23:00 Last Admin: 03/19/20 06:30 Dose: 125 mls/hr Documented by: Cefazolin Sodium/Dextrose 2 gm (/ Premix) 50 mls @ 100 mls/hr IV Q8H [facility] Stop: 03/19/20 22:59 Lidocaine HCl (Xylocaine-Mpf 1%) Confirm Administered Dose 4 mls @ as directed .ROUTE .STK-MED ONE Stop: 03/19/20 06:55 Cefazolin Sodium/Dextrose 2 gm (/ Premix) 50 mls @ 100 mls/hr IV Q8H [facility] Stop: 03/20/20 07:29 Last Admin: 03/20/20 06:45 Dose: 100 mls/hr Documented by: Lactated Ringer's (Ringers, Lactated) Confirm Administered Dose 1,000 mls @ as directed .ROUTE .STK-MED ONE Stop: 03/19/20 11:00 Iodine (Iodine 2% Mild Tincture) Confirm Administered Dose 30 ml .ROUTE .STK-MED ONE Stop: 03/19/20 06:10 Last Admin: 03/19/20 08:31 Dose: 18 ml Documented by: Lidocaine/Sodium Bicarbonate (Buffered Lidocaine 1% In Ns 8.4%) 0.25 ml IDERM ONETIME PRN PRN Reason: Prior to IV Start Stop: 03/19/20 18:00 Last Admin: 03/19/20 06:30 Dose: 0.25 ml Documented by: Morphine Sulfate (Morphine) 2 mg IVPUSH Q2H PRN PRN Reason: Breakthrough Pain Ondansetron HCl (Zofran) Confirm Administered Dose 4 mg .ROUTE .STK-MED ONE Stop: 03/19/20 06:54 Propofol (Diprivan 20 Ml) Confirm Administered Dose 200 mg .ROUTE .STK-MED ONE Stop: 03/19/20 06:54 Propofol (Diprivan 20 Ml) Confirm Administered Dose 200 mg .ROUTE .STK-MED ONE Stop: 03/19/20 08:09 Ropivacaine (Naropin 0.5%) Confirm Administered Dose 30 ml .ROUTE .STK-MED ONE Stop: 03/19/20 09:06 Sodium Chloride (Saline Flush) 10 ml FLUSH ASDIRECTED PRN PRN Reason: Keep Vein Open Stop: 03/19/20 18:00 Tranexamic Acid (Cyklokapron) Confirm Administered Dose 1,000 mg .ROUTE .STK-MED ONE Stop: 03/19/20 06:10 Last Admin: 03/19/20 08:44 Dose: 1,000 mg Documented by: Vancomycin HCl (Vancomycin) Confirm Administered Dose 1 gm .ROUTE .STK-MED ONE Stop: 03/19/20 06:10 Last Admin: 03/19/20 08:40 Dose: 1 gm Documented by: - Exam Wound/Incisions: Dressing Dry and Intact General: Alert, Cooperative, No Acute Distress Extremities: Other (Able to sense touch at LLE. Clarice's negative.) Sepsis Event Note - Evaluation Sepsis Screening Result: No Definite Risk - Focused Exam Vital Signs: Vital Signs Temp Pulse Resp BP Pulse Ox 03/20/20 03:38 61 16 108/47 L 94 L 03/20/20 03:37 59 L 93 L 03/20/20 03:30 102/47 L 03/20/20 03:00 98/46 L 03/20/20 02:30 113/48 L 03/20/20 02:00 115/45 L 03/20/20 01:30 104/42 L 03/20/20 01:00 98/48 L 03/20/20 00:30 98/47 L 03/20/20 00:00 100/48 L 03/19/20 23:30 98/40 L 03/19/20 23:02 59 L 109/51 L 90 L 03/19/20 23:01 56 L 109/51 L 88 L 03/19/20 22:30 99/44 L 03/19/20 22:00 98/50 L 03/19/20 21:40 97.3 F 65 92/44 L 96 03/19/20 21:30 94/40 L 03/19/20 21:00 93/45 L 03/19/20 20:30 98/45 L - Problem List Review Problem List Initiated/Reviewed/Updated: Yes - My Orders Last 24 Hours: Active Orders 24 hr Category Date Time Status Cooling Warming Measures [RC] ASDIRECTED Care 03/19/20 09:12 Active EKG 12 Lead [EKG Documentation Completion] [RC] ROUTINE Care 03/19/20 11:29 Active Notify Provider [RC] ASDIRECTED Care 03/19/20 09:13 Active Pulse Oximetry [RC] ASDIRECTED Care 03/19/20 09:12 Active Regular Diet [DIET] Diet 03/19/20 Lunch Active CULTURE MRSA [RM] Routine Lab 03/19/20 12:32 Received Acetaminophen/HYDROcodone [Barwick 325-5 MG] Med 03/19/20 17:19 Active 1 tab PO Q4H PRN Apixaban [Eliquis] Med 03/20/20 09:00 Active 5 mg PO BID Budesonide/Formoterol Med 03/19/20 21:00 Active 2 puff INH BID Cholecalciferol (Vitamin D3) [Vitamin D3] Med 03/20/20 09:00 Active 75 mcg PO DAILY Diltiazem [Cardizem CD] Med 03/20/20 09:00 Active 180 mg PO DAILY Docusate Sodium [Colace] Med 03/19/20 21:00 Active 100 mg PO BID Famotidine [Pepcid] Med 03/19/20 21:00 Active 20 mg PO Q12H Lactated Ringers [Ringers, Lactated] 1,000 ml Med 03/19/20 17:45 Active IV ASDIRECTED Montelukast [Singulair] Med 03/19/20 21:00 Active 10 mg PO BEDTIME Morphine Med 03/19/20 17:17 Active 1 mg IVPUSH Q2H PRN Medication Orders Hydrocodone Bitart/Acetaminophen ([place] 325-5 Mg) 1 tab PO Q4H PRN PRN Reason: Pain (moderate 4-6) Last Admin: 03/20/20 06:44 Dose: 1 tab Documented by: PATTI Apixaban (Eliquis) 5 mg PO BID [facility] Bisacodyl (Dulcolax) 5 mg PO DAILY PRN PRN Reason: Constipation Cholecalciferol (Vitamin D3) 75 mcg PO DAILY [facility] Cyclobenzaprine HCl (Flexeril) 5 mg PO BID PRN PRN Reason: Spasms Diltiazem HCl (Cardizem Cd) 180 mg PO DAILY [facility] Docusate Sodium (Colace) 100 mg PO BID [facility] Last Admin: 03/19/20 21:47 Dose: 100 mg Documented by: PATTI Famotidine (Pepcid) 20 mg PO Q12H [facility] Last Admin: 03/19/20 21:45 Dose: 20 mg Documented by: PATTI Lactated Ringer's (Ringers, Lactated) 1,000 mls @ 75 mls/hr IV ASDIRECTED [facility] Last Admin: 03/19/20 18:00 Dose: 75 mls/hr Documented by: PHILIPPE Montelukast Sodium (Singulair) 10 mg PO BEDTIME [facility] Last Admin: 03/19/20 21:44 Dose: 10 mg Documented by: PATTI Morphine Sulfate (Morphine) 1 mg IVPUSH Q2H PRN PRN Reason: Pain (severe 7-10) Naloxone HCl (Narcan) 0.1 mg IVPUSH Q5M PRN PRN Reason: Oversedation Budesonide/Formoterol 2 Puff Ptom 2 puff INH BID [facility] Last Admin: 03/19/20 23:08 Dose: Not Given Documented by: PATTI Ondansetron HCl (Zofran) 4 mg IVPUSH Q6H PRN PRN Reason: Nausea/Vomiting Senna (Senna) 8.6 mg PO BID PRN PRN Reason: Constipation - Assessment Assessment (Free Text/Narrative):: POD#1 - left TKA - Plan Plan (Free Text/Narrative):: 1. Hgb 12.8. GFR 47. 2. Resume use of Eliquis today. 3. Likely d/c to [facility] for Rehab stay due to level of debility. 4. Continue with PT and OT. 5. Further orders per Hospitalist service. The pt's case was discussed with Dr. Devries.
--- NOTE | 2020-03-20 08:20 | PCM48HPAN ---
Post Anesthesia Note - EVALUATION WITHIN 48HRS OF ANESTHETIC Vital Signs in Normal Range: Yes Patient Participated in Evaluation: Yes Respiratory Function Stable: Yes Airway Patent: Yes Cardiovascular Function Stable: Yes Hydration Status Stable: Yes Pain Control Satisfactory: Yes Nausea and Vomiting Control Satisfactory: Yes Mental Status Recovered: Yes Vital Signs: Last Vital Signs Temp 36.3 C 03/19/20 21:40 Pulse 61 03/20/20 03:38 Resp 16 03/20/20 03:38 BP 108/47 L 03/20/20 03:38 Pulse Ox 94 L 03/20/20 03:38 - COMMENTS/OBSERVATIONS Free Text/Narrative:: no anesthesia complications noted
[2020-03-20] MEDS: Diltiazem 180 MG Cap.CD PO SCH (08:34)
[2020-03-20] MEDS: Cholecalciferol (Vitamin D3) 25 MCG Tab PO SCH (08:34)
[2020-03-20] MEDS: Docusate Sodium 100 MG Cap PO SCH ×2 (08:35→21:33)
[2020-03-20] MEDS: Apixaban 5 MG Tab PO SCH ×2 (08:35→21:33)
[2020-03-20] MEDS: Famotidine 20 MG Tab PO SCH ×2 (08:36→21:33)
[2020-03-20] MEDS ORDERED: Atenolol 50 MG Tab PO SCH (09:00)
[2020-03-20] MEDS: Lactated Ringers 1,000 ML IV SCH (10:47)
[2020-03-20] MEDS: BUDESONIDE INH SCH ×2 (12:41→23:14)
[2020-03-20] MEDS: FORMOTEROL INH SCH ×2 (12:41→23:14)
[2020-03-20] MEDS ORDERED: Magnesium Hydroxide 400 MG/5 ML Susp 30 ML Cup PO ONE (14:39)
--- NOTE | 2020-03-20 14:45 | PCM.CONSN ---
- General Info Date of Service: 03/20/20 Admission Dx/Problem (Free Text): Admission Diagnosis/Problem Admission Diagnosis/Problem Osteoarthritis of knee, s/p left total knee arthroplasty Subjective Update: The patient was seen by me at bedside. Today she is feeling tired. She denies chest pain, shortness of breath, dizziness or lightheadedness. She has not had a bowel movement and is not passing gas. Denies nausea or vomiting. She has had a good appetite. She has been using incentive spirometer as instructed. The patient's pain in knee is currently 5/10. Pt was weaned from oxygen overnight and this morning O2 saturation is 92-94% on RA. - Patient Data Vitals - Most Recent: Last Vital Signs Temp 98.8 F 03/20/20 08:31 Pulse 75 03/20/20 08:31 Resp 18 03/20/20 08:31 BP 127/86 03/20/20 08:31 Pulse Ox 92 L 03/20/20 08:31 Weight - Most Recent: 204 lb 12.8 oz - Exam General: Alert, Oriented, Cooperative, Mild Distress (From LLE pain) HEENT: Pupils Equal, Pupils Reactive, EOMI Neck: Supple Lungs: Clear to Auscultation, Normal Respiratory Effort Cardiovascular: Regular Rate, Regular Rhythm, No Murmurs. No: Murmurs, Gallops, Rubs GI/Abdominal Exam: Soft, Non-Tender, No Distention, Other (Hypoactive bowel sounds) Extremities: Normal Inspection, No Pedal Edema, Normal Capillary Refill, Other (Left knee in brace, ADDY bandage) Skin: Warm, Dry, Intact Neurological: No New Focal Deficit Sepsis Event Note - Evaluation Sepsis Screening Result: No Definite Risk - Focused Exam Vital Signs: Vital Signs Temp Pulse Resp BP Pulse Ox 03/20/20 08:31 98.8 F 75 18 127/86 92 L 03/20/20 03:38 61 16 108/47 L 94 L 03/20/20 03:37 59 L 93 L 03/20/20 03:30 102/47 L 03/20/20 03:00 98/46 L Consult PN Assessment/Plan (1) Osteoarthritis SNOMED Code(s): 331659307 Code(s): M19.90 - UNSPECIFIED OSTEOARTHRITIS, UNSPECIFIED SITE Current Visit: Yes Qualifiers: Osteoarthritis location: multiple joints Osteoarthritis type: primary Qualified Code(s): M89.49 - Other hypertrophic osteoarthropathy, multiple sites (2) Paroxysmal atrial fibrillation SNOMED Code(s): 914075525 Code(s): I48.0 - PAROXYSMAL ATRIAL FIBRILLATION Current Visit: Yes (3) COPD (chronic obstructive pulmonary disease) SNOMED Code(s): 96719158 Code(s): J44.9 - CHRONIC OBSTRUCTIVE PULMONARY DISEASE, UNSPECIFIED Current Visit: Yes (4) Hypothyroidism SNOMED Code(s): 92740928 Code(s): E03.9 - HYPOTHYROIDISM, UNSPECIFIED Current Visit: Yes (5) HX: breast cancer SNOMED Code(s): 315835504 Code(s): Z85.3 - PERSONAL HISTORY OF MALIGNANT NEOPLASM OF BREAST Current Visit: Yes (6) Hypercholesterolemia SNOMED Code(s): 48775713 Code(s): E78.00 - PURE HYPERCHOLESTEROLEMIA, UNSPECIFIED Current Visit: Yes (7) Vitamin D deficiency SNOMED Code(s): 93703671 Code(s): E55.9 - VITAMIN D DEFICIENCY, UNSPECIFIED Current Visit: Yes (8) Sleep apnea in adult SNOMED Code(s): 30680111 Code(s): G47.30 - SLEEP APNEA, UNSPECIFIED Current Visit: Yes (9) Constipation SNOMED Code(s): 67999361 Code(s): K59.00 - CONSTIPATION, UNSPECIFIED Current Visit: Yes Qualifiers: Qualified Code(s): K59.03 - Drug induced constipation Problem List Initiated/Reviewed/Updated: Yes Plan: Osteoarthritis s/p left knee arthroplasty POD 1 PT worked with patient and recommends dc to care home or long-term for further PT PLAN - Continue working with PT and reevaluation this afternoon - Pain management as stated below - DVT prophylaxis with eliquis 5mg oral BID started today per ortho Cardiovascular risk assessment GSCRI reveals 6.5% risk of perioperative myocardial infarction or cardiac arrest. Stress test performed on 01/11/2020 shows LVEF of 70%, minimal reversible defect within anteroapical wall, otherwise no additional abnormality appreciated. EKG negative for ST elevation or depression after surgery Troponin <0.017 K+, Mg, phos normal PLAN - Anticoagulation restarted today. Paroxysmal atrial fibrillation On Eliquis 5mg oral BID at home On diltiazem 180mg po daily and atenolol 50mg oral daily at home Currently NSR HR has been 59-75 BP 127/86 PLAN - Continue diltiazem 180mg po daily. Continue to hold atenolol. - Eliquis 5mg po BID restarted today. COPD No wheezes on auscultation. Pt is on RA Takes Symbicort twice a day at home PLAN Continue symbicort two puffs twice a day Hx Breast cancer Home medicine of anastrazole 1mg oral daily at home. PLAN -Holding home anastrazole. -Follow up with oncologist at previously scheduled appointment for next month. Hypothyroidism TSH check on 03/01/2020 was 0.98 Home med is levothyroxine 50mcg daily PLAN -Continue levothyroxine. Vitamin D deficiency Pt takes Vitamin D3 3000u daily at home PLAN -Continue vitamin D supplementation. Hypercholesterolemia Home medication is rosuvastatin 10mg oral daily PLAN -Holding statin. Patient is out of window for therapeutic benefits. -Patient will discuss continuing statin with PCP after discharge. LE dependent edema Home medications of spironolactone 25mg oral daily and lasix 20mg oral daily. PLAN -Holding lasix and spironolactone for now. -Will monitor fluid status and give lasix IV push as needed for fluid overload. Sleep Apnea CPAP at home PLAN -Continue CPAP with home settings. Constipation Pt states she takes OTC laxatives daily or she does not have BM. Last BM was 08/16 AM. PLAN -Per orthopedic surgery. Colace BID scheduled, Senna as needed twice a day for constipation, bisacodyl suppository daily as needed. -Giving milk of mag w/ prune juice x1 today. -Up and moving with PT. Hx of stroke No obvious residual effects Patient eats regular diet without reported aspiration, choking PLAN -Eliquis restarted today. -PT will evaluate PROPHYLAXIS GI- Pepcid 20mg oral BID. Zofran 4mg IV q4h as needed for nausea. DVT-Eliquis 5mg oral BID restarted. CODE STATUS Full code DISPOSITION The patient will remain admitted under Dr. Devries after Left total knee arthroplasty. She will work with PT to further assess if patient will need further work with rehabilitation at care home/swing bed or if patient will be strong enough to DC to home. For now looks like patient will need care home placement. Expected length of stay is 1-2 days.
[2020-03-20] MEDS: Acetaminophen 325 MG Tab PO PRN ×2 (15:29→21:33)
[2020-03-20] MEDS: Montelukast 10 MG Tab PO SCH (21:33)
[2020-03-21] MEDS: Lactated Ringers 1,000 ML IV SCH ×2 (00:44→13:48)
[2020-03-21] MEDS: Acetaminophen/HYDROcodone 325-5 MG Tab PO PRN ×4 (00:44→21:06)
[2020-03-21] MEDS ORDERED: Phosphorus #1 250 MG Tab PO ONE (08:04)
[2020-03-21] MEDS: Cholecalciferol (Vitamin D3) 25 MCG Tab PO SCH (09:04)
[2020-03-21] MEDS: Diltiazem 180 MG Cap.CD PO SCH (09:07)
[2020-03-21] MEDS: Docusate Sodium 100 MG Cap PO SCH ×2 (09:08→21:05)
[2020-03-21] MEDS: Apixaban 5 MG Tab PO SCH ×2 (09:08→21:06)
[2020-03-21] MEDS: Levothyroxine 50 MCG Tab PO SCH (09:09)
[2020-03-21] MEDS: FORMOTEROL INH SCH ×2 (09:20→20:23)
[2020-03-21] MEDS: BUDESONIDE INH SCH ×2 (09:20→20:23)
--- NOTE | 2020-03-21 10:47 | PCM.SURGPN ---
- General Info Date of Service: 03/21/20 POD#: 2 Functional Status: Reports: Pain Controlled, Tolerating Diet, Ambulating, Urinating, Incentive Spirometry, Other (The pt states she is "getting better" and her pain is controlled.) - Patient Data Vitals - Most Recent: Last Vital Signs Temp 98.2 F 03/21/20 05:15 Pulse 70 03/21/20 05:15 Resp 18 03/21/20 05:15 BP 111/44 L 03/21/20 05:15 Pulse Ox 86 L 03/21/20 08:43 Weight - Most Recent: 208 lb 6.4 oz I&O - Last 24 Hours: Intake & Output 03/20/20 03/21/20 03/21/20 22:59 06:59 14:59 Intake Total 1420 1345 Balance 1420 1345 Lab Results Last 24 Hrs: Laboratory Results - last 24 hr 03/21/20 03/21/20 Range/Units 05:12 05:12 WBC 6.18 (3.98-10.04) K/mm3 RBC 3.60 L (3.98-5.22) M/mm3 Hgb 10.5 L D (11.2-15.7) gm/dl Hct 33.6 L (34.1-44.9) % MCV 93.3 (79.4-94.8) fl MCH 29.2 (25.6-32.2) pg MCHC 31.3 L (32.2-35.5) g/dl RDW Std Deviation 46.8 H (36.4-46.3) fL Plt Count 131 L (182-369) K/mm3 MPV 11.4 (9.4-12.3) fl Neut % (Auto) 69.9 (34.0-71.1) % Lymph % (Auto) 17.0 L (19.3-51.7) % Meigs % (Auto) 10.8 (4.7-12.5) % Eos % (Auto) 1.8 (0.7-5.8) Baso % (Auto) 0.3 (0.1-1.2) % Neut # (Auto) 4.32 (1.56-6.13) K/mm3 Lymph # (Auto) 1.05 L (1.18-3.74) K/mm3 Meigs # (Auto) 0.67 H (0.24-0.36) K/mm3 Eos # (Auto) 0.11 (0.04-0.36) K/mm3 Baso # (Auto) 0.02 (0.01-0.08) K/mm3 Sodium 136 (136-145) mEq/L Potassium 3.6 (3.5-5.1) mEq/L Chloride 104 (98-107) mEq/L Carbon Dioxide 25 (21-32) mEq/L Anion Gap 10.6 (5-15) BUN 16 (7-18) mg/dL Creatinine 1.0 (0.55-1.02) mg/dL Est Cr Clr Drug Dosing 33.58 mL/min Estimated GFR (MDRD) 52 (>60) mL/min BUN/Creatinine Ratio 16.0 (14-18) Glucose 101 (83-115) mg/dL Calcium 8.5 (8.5-10.1) mg/dL Phosphorus 2.5 L (2.6-4.7) mg/dL Magnesium 1.9 (1.8-2.4) mg/dl Claudy Results Last 24 Hrs: Microbiology 03/19/20 12:32 MRSA Culture - Final Nasal/Axilla/Groin NO MRSA ISOLATED Med Orders - Current: Current Medications Acetaminophen (Tylenol) 650 mg PO Q6H PRN PRN Reason: Pain Last Admin: 03/20/20 21:33 Dose: 650 mg Documented by: Hydrocodone Bitart/Acetaminophen ([place] 325-5 Mg) 1 tab PO Q4H PRN PRN Reason: Pain (moderate 4-6) Last Admin: 03/21/20 09:08 Dose: 1 tab Documented by: Apixaban (Eliquis) 5 mg PO BID [facility] Last Admin: 03/21/20 09:08 Dose: 5 mg Documented by: Bisacodyl (Dulcolax) 5 mg PO DAILY PRN PRN Reason: Constipation Cholecalciferol (Vitamin D3) 75 mcg PO DAILY [facility] Last Admin: 03/21/20 09:04 Dose: 75 mcg Documented by: Cyclobenzaprine HCl (Flexeril) 5 mg PO BID PRN PRN Reason: Spasms Last Admin: 03/20/20 08:43 Dose: 5 mg Documented by: Diltiazem HCl (Cardizem Cd) 180 mg PO DAILY [facility] Last Admin: 03/21/20 09:07 Dose: 180 mg Documented by: Docusate Sodium (Colace) 100 mg PO BID [facility] Last Admin: 03/21/20 09:08 Dose: 100 mg Documented by: Famotidine (Pepcid) 20 mg PO Q24H [facility] Last Admin: 03/20/20 21:33 Dose: 20 mg Documented by: Lactated Ringer's (Ringers, Lactated) 1,000 mls @ 75 mls/hr IV ASDIRECTED [facility] Last Admin: 03/21/20 00:44 Dose: 75 mls/hr Documented by: Levothyroxine Sodium (Synthroid) 50 mcg PO DAILY [facility] Last Admin: 03/21/20 09:09 Dose: 50 mcg Documented by: Montelukast Sodium (Singulair) 10 mg PO BEDTIME [facility] Last Admin: 03/20/20 21:33 Dose: 10 mg Documented by: Morphine Sulfate (Morphine) 1 mg IVPUSH Q2H PRN PRN Reason: Pain (severe 7-10) Naloxone HCl (Narcan) 0.1 mg IVPUSH Q5M PRN PRN Reason: Oversedation Budesonide/Formoterol 2 Puff Ptom 2 puff INH BID [facility] Last Admin: 03/21/20 09:20 Dose: Not Given Documented by: Ondansetron HCl (Zofran) 4 mg IVPUSH Q6H PRN PRN Reason: Nausea/Vomiting Senna (Senna) 8.6 mg PO BID PRN PRN Reason: Constipation Discontinued Medications Hydrocodone Bitart/Acetaminophen ([place] 325-5 Mg) 1 - 2 tab PO Q4H PRN PRN Reason: Pain Last Admin: 03/19/20 15:46 Dose: 1 tab Documented by: Atenolol (Tenormin) 50 mg PO DAILY [facility] Bupivacaine HCl (Sensorcaine-Mpf 0.25%) Confirm Administered Dose 20 ml .ROUTE .STK-MED ONE Stop: 03/19/20 06:10 Last Admin: 03/19/20 08:39 Dose: 30 ml Documented by: Bupivacaine HCl (Sensorcaine-Mpf 0.25%) Confirm Administered Dose 10 ml .ROUTE .STK-MED ONE Stop: 03/19/20 06:27 Cefazolin Sodium (Ancef) Confirm Administered Dose 2 gm .ROUTE .STK-MED ONE Stop: 03/19/20 06:11 Last Admin: 03/19/20 08:34 Dose: 2 gm Documented by: Cefazolin Sodium (Ancef) Confirm Administered Dose 2 gm .ROUTE .STK-MED ONE Stop: 03/19/20 06:55 Morphine Sulfate 8 mg/Epinephrine HCl 0.3 mg/Cefuroxime Sodium 750 mg/Ketorolac Tromethamine 30 mg/Sodium Chloride 7.9 ml 0 mg .XX ASDIRECTED PRN PRN Reason: Pain Stop: 03/19/20 12:00 Last Admin: 03/19/20 08:39 Dose: 788.3 mg Documented by: Ephedrine Sulfate (Ephedrine 25 Mg/5 Ml Syringe) Confirm Administered Dose 25 mg IV .STK-MED ONE Stop: 03/19/20 07:22 Epinephrine HCl (Adrenalin) Confirm Administered Dose 1 mg .ROUTE .STK-MED ONE Stop: 03/19/20 09:06 Famotidine (Pepcid) 20 mg PO Q12H [facility] Last Admin: 03/20/20 17:59 Dose: Not Given Documented by: Famotidine (Pepcid) 20 mg PO Q12H [facility] Last Admin: 03/20/20 08:36 Dose: 20 mg Documented by: Fentanyl (Sublimaze) Confirm Administered Dose 100 mcg .ROUTE .STK-MED ONE Stop: 03/19/20 06:55 Fentanyl (Sublimaze) 50 mcg IVPUSH STAT STA Stop: 03/19/20 09:35 Last Admin: 03/19/20 09:41 Dose: 50 mcg Documented by: Lactated Ringer's (Ringers, Lactated) 1,000 mls @ 125 mls/hr IV ASDIRECTED JAMA Stop: 03/19/20 23:00 Last Admin: 03/19/20 06:30 Dose: 125 mls/hr Documented by: Cefazolin Sodium/Dextrose 2 gm (/ Premix) 50 mls @ 100 mls/hr IV Q8H JAMA Stop: 03/19/20 22:59 Last Admin: 03/20/20 17:58 Dose: Not Given Documented by: Lidocaine HCl (Xylocaine-Mpf 1%) Confirm Administered Dose 4 mls @ as directed .ROUTE .STK-MED ONE Stop: 03/19/20 06:55 Cefazolin Sodium/Dextrose 2 gm (/ Premix) 50 mls @ 100 mls/hr IV Q8H JAMA Stop: 03/20/20 07:29 Last Admin: 03/20/20 06:45 Dose: 100 mls/hr Documented by: Lactated Ringer's (Ringers, Lactated) Confirm Administered Dose 1,000 mls @ as directed .ROUTE .STK-MED ONE Stop: 03/19/20 11:00 Iodine (Iodine 2% Mild Tincture) Confirm Administered Dose 30 ml .ROUTE .STK-MED ONE Stop: 03/19/20 06:10 Last Admin: 03/19/20 08:31 Dose: 18 ml Documented by: Lidocaine/Sodium Bicarbonate (Buffered Lidocaine 1% In Ns 8.4%) 0.25 ml IDERM ONETIME PRN PRN Reason: Prior to IV Start Stop: 03/19/20 18:00 Last Admin: 03/19/20 06:30 Dose: 0.25 ml Documented by: Magnesium Hydroxide (Milk Of Magnesia) 30 ml PO ONETIME ONE Stop: 03/20/20 14:40 Last Admin: 03/20/20 15:29 Dose: 30 ml Documented by: Morphine Sulfate (Morphine) 2 mg IVPUSH Q2H PRN PRN Reason: Breakthrough Pain Ondansetron HCl (Zofran) Confirm Administered Dose 4 mg .ROUTE .STK-MED ONE Stop: 03/19/20 06:54 Propofol (Diprivan 20 Ml) Confirm Administered Dose 200 mg .ROUTE .STK-MED ONE Stop: 03/19/20 06:54 Propofol (Diprivan 20 Ml) Confirm Administered Dose 200 mg .ROUTE .STK-MED ONE Stop: 03/19/20 08:09 Ropivacaine (Naropin 0.5%) Confirm Administered Dose 30 ml .ROUTE .STK-MED ONE Stop: 03/19/20 09:06 Sodium Chloride (Saline Flush) 10 ml FLUSH ASDIRECTED PRN PRN Reason: Keep Vein Open Stop: 03/19/20 18:00 Sodium Phosphate (Neutra-Phos) 500 mg PO ONETIME ONE Stop: 03/21/20 08:05 Last Admin: 03/21/20 09:05 Dose: 500 mg Documented by: Tranexamic Acid (Cyklokapron) Confirm Administered Dose 1,000 mg .ROUTE .STK-MED ONE Stop: 03/19/20 06:10 Last Admin: 03/19/20 08:44 Dose: 1,000 mg Documented by: Vancomycin HCl (Vancomycin) Confirm Administered Dose 1 gm .ROUTE .STK-MED ONE Stop: 03/19/20 06:10 Last Admin: 03/19/20 08:40 Dose: 1 gm Documented by: - Exam Wound/Incisions: Dressing Dry and Intact General: Alert, Cooperative, No Acute Distress Lungs: Normal Respiratory Effort Extremities: Other (Clarice's negative. Mod effusion left knee. ) Sepsis Event Note - Evaluation Sepsis Screening Result: No Definite Risk - Focused Exam Vital Signs: Vital Signs Temp Pulse Resp BP Pulse Ox Pulse Ox 03/21/20 08:43 86 L 03/21/20 05:15 98.2 F 70 18 111/44 L 93 L - Problem List Review Problem List Initiated/Reviewed/Updated: Yes - My Orders Last 24 Hours: Active Orders 24 hr Category Date Time Status Communication Order [RC] ASDIRECTED Care 03/21/20 08:02 Active Heart Healthy Diet [DIET] Diet 03/20/20 Lunch Active Acetaminophen [TylenoL] Med 03/20/20 14:44 Active 650 mg PO Q6H PRN Famotidine [Pepcid] Med 03/20/20 21:00 Active 20 mg PO Q24H Levothyroxine [Synthroid] Med 03/21/20 09:00 Active 50 mcg PO DAILY Medication Orders Acetaminophen (Tylenol) 650 mg PO Q6H PRN PRN Reason: Pain Last Admin: 03/20/20 21:33 Dose: 650 mg Documented by: Admin: 03/20/20 15:29 Dose: 650 mg Documented by: [id number] Hydrocodone Bitart/Acetaminophen ([place] 325-5 Mg) 1 tab PO Q4H PRN PRN Reason: Pain (moderate 4-6) Last Admin: 03/21/20 09:08 Dose: 1 tab Documented by: Admin: 03/21/20 00:44 Dose: 1 tab Documented by: Admin: 03/20/20 06:44 Dose: 1 tab Documented by: PATTI Apixaban (Eliquis) 5 mg PO BID JAMA Last Admin: 03/21/20 09:08 Dose: 5 mg Documented by: Admin: 03/20/20 21:33 Dose: 5 mg Documented by: Admin: 03/20/20 08:35 Dose: 5 mg Documented by: MEDHAT Bisacodyl (Dulcolax) 5 mg PO DAILY PRN PRN Reason: Constipation Cholecalciferol (Vitamin D3) 75 mcg PO DAILY [facility] Last Admin: 03/21/20 09:04 Dose: 75 mcg Documented by: Admin: 03/20/20 08:34 Dose: 75 mcg Documented by: MEDHAT Cyclobenzaprine HCl (Flexeril) 5 mg PO BID PRN PRN Reason: Spasms Last Admin: 03/20/20 08:43 Dose: 5 mg Documented by: MEDHAT Diltiazem HCl (Cardizem Cd) 180 mg PO DAILY [facility] Last Admin: 03/21/20 09:07 Dose: 180 mg Documented by: Admin: 03/20/20 08:34 Dose: 180 mg Documented by: MEDHAT Docusate Sodium (Colace) 100 mg PO BID [facility] Last Admin: 03/21/20 09:08 Dose: 100 mg Documented by: Admin: 03/20/20 21:33 Dose: 100 mg Documented by: Admin: 03/20/20 08:35 Dose: 100 mg Documented by: Admin: 03/19/20 21:47 Dose: 100 mg Documented by: PATTI Famotidine (Pepcid) 20 mg PO Q24H [facility] Last Admin: 03/20/20 21:33 Dose: 20 mg Documented by: GEETA Lactated Ringer's (Ringers, Lactated) 1,000 mls @ 75 mls/hr IV ASDIRECTED [facility] Last Admin: 03/21/20 00:44 Dose: 75 mls/hr Documented by: Infusion: 03/21/20 00:07 Dose: 75 mls/hr Documented by: Admin: 03/20/20 10:47 Dose: 75 mls/hr Documented by: Infusion: 03/20/20 07:20 Dose: 75 mls/hr Documented by: Admin: 03/19/20 18:00 Dose: 75 mls/hr Documented by: PHILIPPE Levothyroxine Sodium (Synthroid) 50 mcg PO DAILY [facility] Last Admin: 03/21/20 09:09 Dose: 50 mcg Documented by: PATTI Montelukast Sodium (Singulair) 10 mg PO BEDTIME [facility] Last Admin: 03/20/20 21:33 Dose: 10 mg Documented by: [id number] Admin: 03/19/20 21:44 Dose: 10 mg Documented by: PATTI Morphine Sulfate (Morphine) 1 mg IVPUSH Q2H PRN PRN Reason: Pain (severe 7-10) Naloxone HCl (Narcan) 0.1 mg IVPUSH Q5M PRN PRN Reason: Oversedation Budesonide/Formoterol 2 Puff Ptom 2 puff INH BID [facility] Last Admin: 03/21/20 09:20 Dose: Not Given Documented by: Admin: 03/20/20 23:14 Dose: Not Given Documented by: Admin: 03/20/20 12:41 Dose: Not Given Documented by: Admin: 03/19/20 23:08 Dose: Not Given Documented by: PATTI Ondansetron HCl (Zofran) 4 mg IVPUSH Q6H PRN PRN Reason: Nausea/Vomiting Senna (Senna) 8.6 mg PO BID PRN PRN Reason: Constipation - Assessment Assessment (Free Text/Narrative):: POD#2 - left TKA - Plan Plan (Free Text/Narrative):: 1. Continue with PT and OT. WBAT. 2. Discharge to MD for continued rehab vs. home. 3. Further orders per Hospitalist service. 4. Eliquis BID. The pt's case was discussed with Dr. Devries.
--- NOTE | 2020-03-21 17:58 | PCM.CONSN ---
- General Info Date of Service: 03/21/20 Admission Dx/Problem (Free Text): Admission Diagnosis/Problem Admission Diagnosis/Problem Osteoarthritis of knee, s/p left total knee arthroplasty Subjective Update: The patient was seen by me at bedside. She feels like she is working well with physical therapy but physical therapy reports slow progress. She does feel some short of breath when up and walking with PT and says this is her baseline at home. Her pain has been okay controlled. She denies dizziness, lightheadedness, nausea, chest pain, denies fevers. She has not had a BM. She is passing gas and feels like she will need to have BM but then has no relief. - Patient Data Vitals - Most Recent: Last Vital Signs Temp 97.9 F 03/21/20 11:49 Pulse 86 03/21/20 11:49 Resp 20 03/21/20 11:49 BP 123/45 L 03/21/20 11:49 Pulse Ox 99 03/21/20 11:49 Weight - Most Recent: 204 lb - Exam General: Alert, Oriented, Cooperative, No Acute Distress HEENT: Pupils Equal, Pupils Reactive, EOMI Neck: Supple Lungs: Clear to Auscultation, Normal Respiratory Effort. No: Crackles, Rales, Rhonchi, Wheezing Cardiovascular: Regular Rate, Regular Rhythm, No Murmurs GI/Abdominal Exam: Soft, Non-Tender, No Distention, Other (hypoactive bowel sounds) Extremities: Normal Inspection, No Pedal Edema, Normal Capillary Refill, Other (Left knee in SCD, wrapped. No warmth at surgical site.) Peripheral Pulses: 1+: Posterior Tibial (L), Posterior Tibial (R) Skin: Warm, Dry, Intact Neurological: No New Focal Deficit Psy/Mental Status: Alert, Normal Affect, Normal Mood Sepsis Event Note - Evaluation Sepsis Screening Result: No Definite Risk Consult PN Assessment/Plan (1) Osteoarthritis SNOMED Code(s): 756342671 Code(s): M19.90 - UNSPECIFIED OSTEOARTHRITIS, UNSPECIFIED SITE Current Visit: Yes Qualifiers: Osteoarthritis location: multiple joints Osteoarthritis type: primary Qualified Code(s): M89.49 - Other hypertrophic osteoarthropathy, multiple sites (2) Paroxysmal atrial fibrillation SNOMED Code(s): 579512684 Code(s): I48.0 - PAROXYSMAL ATRIAL FIBRILLATION Current Visit: Yes (3) COPD (chronic obstructive pulmonary disease) SNOMED Code(s): 03437381 Code(s): J44.9 - CHRONIC OBSTRUCTIVE PULMONARY DISEASE, UNSPECIFIED Current Visit: Yes (4) Hypothyroidism SNOMED Code(s): 80528508 Code(s): E03.9 - HYPOTHYROIDISM, UNSPECIFIED Current Visit: Yes (5) HX: breast cancer SNOMED Code(s): 324979627 Code(s): Z85.3 - PERSONAL HISTORY OF MALIGNANT NEOPLASM OF BREAST Current Visit: Yes (6) Hypophosphatemia SNOMED Code(s): 9324185 Code(s): E83.39 - OTHER DISORDERS OF PHOSPHORUS METABOLISM Current Visit: Yes (7) Hypercholesterolemia SNOMED Code(s): 64554694 Code(s): E78.00 - PURE HYPERCHOLESTEROLEMIA, UNSPECIFIED Current Visit: Yes (8) Vitamin D deficiency SNOMED Code(s): 59715361 Code(s): E55.9 - VITAMIN D DEFICIENCY, UNSPECIFIED Current Visit: Yes (9) Sleep apnea in adult SNOMED Code(s): 10705576 Code(s): G47.30 - SLEEP APNEA, UNSPECIFIED Current Visit: Yes (10) Constipation SNOMED Code(s): 37639640 Code(s): K59.00 - CONSTIPATION, UNSPECIFIED Current Visit: Yes Qualifiers: Qualified Code(s): K59.03 - Drug induced constipation Problem List Initiated/Reviewed/Updated: Yes Plan: Osteoarthritis s/p left knee arthroplasty POD 1 PT worked with patient and recommends dc to snf or care home for further PT. PLAN - Continue working with PT - Pain management as stated below - DVT prophylaxis with eliquis 5mg oral BID Paroxysmal atrial fibrillation On Eliquis 5mg oral BID at home On diltiazem 180mg po daily and atenolol 50mg oral daily at home Currently NSR HR has been 61-86 BP 123/45 PLAN - Continue diltiazem 180mg po daily. Continue to hold atenolol. - Eliquis 5mg po BID. Hypophosphatemia Phosphorus is 2.5 PLAN - Neutra phos 250mg oral x1 - Recheck level in AM COPD No wheezes on auscultation. Patient O2 saturation decreases to 89% on RA, continued on 2L by NC Takes Symbicort twice a day at home PLAN - Continue symbicort two puffs twice a day - Wean daytime oxygen Hx Breast cancer Home medicine of anastrazole 1mg oral daily at home. PLAN - Holding home anastrazole. - Follow up with oncologist at previously scheduled appointment for next month. Hypothyroidism TSH check on 03/01/2020 was 0.98 Home med is levothyroxine 50mcg daily PLAN - Continue levothyroxine. Vitamin D deficiency Pt takes Vitamin D3 3000u daily at home PLAN - Continue vitamin D supplementation. Hypercholesterolemia Home medication is rosuvastatin 10mg oral daily PLAN - Holding statin. Patient is out of window for therapeutic benefits. - Patient will discuss continuing statin with PCP after discharge. LE dependent edema Home medications of spironolactone 25mg oral daily and lasix 20mg oral daily. PLAN -Holding lasix and spironolactone for now. -Will monitor fluid status and give lasix IV push as needed for fluid overload. Sleep Apnea CPAP at home PLAN - Continue CPAP with home settings. Constipation Last BM was 08/16 AM. Pt received milk of mag yesterday with no result. PLAN - Colace BID scheduled, Senna as needed twice a day for constipation, bisacodyl suppository daily as needed. - Soap suds enema x1 today. - Up and moving with PT. Hx of stroke No obvious residual effects Patient eats regular diet without reported aspiration, choking PLAN - Eliquis. - PT consulted PROPHYLAXIS GI- Per ortho, Pepcid 20mg oral BID. Zofran 4mg IV q4h as needed for nausea. DVT-Eliquis 5mg oral BID restarted. CODE STATUS Full code DISPOSITION The patient will remain admitted under Dr. Devries after Left total knee arthroplasty. Hospitalist team consulted for medical management of comorbid conditions. Expected length of stay is 1 day. Discharge to [facility] tomorrow.
[2020-03-21] MEDS: Famotidine 20 MG Tab PO SCH (21:06)
[2020-03-21] MEDS: Montelukast 10 MG Tab PO SCH (21:06)
[2020-03-22] MEDS: Acetaminophen/HYDROcodone 325-5 MG Tab PO PRN ×2 (05:28→10:47)
--- NOTE | 2020-03-22 07:40 | PCM.SURGPN ---
- General Info Date of Service: 03/22/20 POD#: 3 Functional Status: Reports: Pain Controlled, Tolerating Diet, Ambulating, Urinating, Incentive Spirometry, Other (The pt has been slow to progress with ambulation distance.) - Patient Data Vitals - Most Recent: Last Vital Signs Temp 97.5 F 03/22/20 05:25 Pulse 83 03/22/20 05:25 Resp 18 03/22/20 05:25 BP 126/60 03/22/20 05:25 Pulse Ox 93 L 03/22/20 06:09 Weight - Most Recent: 210 lb 14.4 oz I&O - Last 24 Hours: Intake & Output 03/21/20 03/22/20 03/22/20 22:59 06:59 14:59 Intake Total 1730 500 Balance 1730 500 Lab Results Last 24 Hrs: Laboratory Results - last 24 hr 03/22/20 03/22/20 Range/Units 05:33 05:33 WBC 6.54 (3.98-10.04) K/mm3 RBC 3.58 L (3.98-5.22) M/mm3 Hgb 10.1 L (11.2-15.7) gm/dl Hct 33.5 L (34.1-44.9) % MCV 93.6 (79.4-94.8) fl MCH 28.2 (25.6-32.2) pg MCHC 30.1 L (32.2-35.5) g/dl RDW Std Deviation 47.2 H (36.4-46.3) fL Plt Count 144 L (182-369) K/mm3 MPV 10.9 (9.4-12.3) fl Neut % (Auto) 66.0 (34.0-71.1) % Lymph % (Auto) 18.3 L (19.3-51.7) % [place] % (Auto) 12.8 H (4.7-12.5) % Eos % (Auto) 2.3 (0.7-5.8) Baso % (Auto) 0.3 (0.1-1.2) % Neut # (Auto) 4.31 (1.56-6.13) K/mm3 Lymph # (Auto) 1.20 (1.18-3.74) K/mm3 [place] # (Auto) 0.84 H (0.24-0.36) K/mm3 Eos # (Auto) 0.15 (0.04-0.36) K/mm3 Baso # (Auto) 0.02 (0.01-0.08) K/mm3 Sodium 136 (136-145) mEq/L Potassium 3.8 (3.5-5.1) mEq/L Chloride 102 (98-107) mEq/L Carbon Dioxide 27 (21-32) mEq/L Anion Gap 10.8 (5-15) BUN 12 (7-18) mg/dL Creatinine 0.9 (0.55-1.02) mg/dL Est Cr Clr Drug Dosing 37.31 mL/min Estimated GFR (MDRD) 59 (>60) mL/min BUN/Creatinine Ratio 13.3 L (14-18) Glucose 99 (83-115) mg/dL Calcium 8.7 (8.5-10.1) mg/dL Phosphorus 2.7 (2.6-4.7) mg/dL Magnesium 1.8 (1.8-2.4) mg/dl Claudy Results Last 24 Hrs: Microbiology 03/19/20 12:32 MRSA Culture - Final Nasal/Axilla/Groin NO MRSA ISOLATED Med Orders - Current: Current Medications Acetaminophen (Tylenol) 650 mg PO Q6H PRN PRN Reason: Pain Last Admin: 03/20/20 21:33 Dose: 650 mg Documented by: Hydrocodone Bitart/Acetaminophen ([place] 325-5 Mg) 1 tab PO Q4H PRN PRN Reason: Pain (moderate 4-6) Last Admin: 03/22/20 05:28 Dose: 1 tab Documented by: Apixaban (Eliquis) 5 mg PO BID PENDING SALE TO [facility] Last Admin: 03/21/20 21:06 Dose: 5 mg Documented by: Bisacodyl (Dulcolax) 5 mg PO DAILY PRN PRN Reason: Constipation Cholecalciferol (Vitamin D3) 75 mcg PO DAILY PENDING SALE TO [facility] Last Admin: 03/21/20 09:04 Dose: 75 mcg Documented by: Cyclobenzaprine HCl (Flexeril) 5 mg PO BID PRN PRN Reason: Spasms Last Admin: 03/20/20 08:43 Dose: 5 mg Documented by: Diltiazem HCl (Cardizem Cd) 180 mg PO DAILY PENDING SALE TO [facility] Last Admin: 03/21/20 09:07 Dose: 180 mg Documented by: Docusate Sodium (Colace) 100 mg PO BID PENDING SALE TO [facility] Last Admin: 03/21/20 21:05 Dose: 100 mg Documented by: Famotidine (Pepcid) 20 mg PO Q24H PENDING SALE TO [facility] Last Admin: 03/21/20 21:06 Dose: 20 mg Documented by: Levothyroxine Sodium (Synthroid) 50 mcg PO DAILY PENDING SALE TO [facility] Last Admin: 03/21/20 09:09 Dose: 50 mcg Documented by: Montelukast Sodium (Singulair) 10 mg PO BEDTIME PENDING SALE TO [facility] Last Admin: 03/21/20 21:06 Dose: 10 mg Documented by: Morphine Sulfate (Morphine) 1 mg IVPUSH Q2H PRN PRN Reason: Pain (severe 7-10) Naloxone HCl (Narcan) 0.1 mg IVPUSH Q5M PRN PRN Reason: Oversedation Budesonide/Formoterol 2 Puff Ptom 2 puff INH BID PENDING SALE TO [facility] Last Admin: 03/21/20 20:23 Dose: 2 puff Documented by: Ondansetron HCl (Zofran) 4 mg IVPUSH Q6H PRN PRN Reason: Nausea/Vomiting Senna (Senna) 8.6 mg PO BID PRN PRN Reason: Constipation Last Admin: 03/21/20 21:06 Dose: 8.6 mg Documented by: Discontinued Medications Hydrocodone Bitart/Acetaminophen ([place] 325-5 Mg) 1 - 2 tab PO Q4H PRN PRN Reason: Pain Last Admin: 03/19/20 15:46 Dose: 1 tab Documented by: Atenolol (Tenormin) 50 mg PO DAILY PENDING SALE TO [facility] Bupivacaine HCl (Sensorcaine-Mpf 0.25%) Confirm Administered Dose 20 ml .ROUTE .STK-MED ONE Stop: 03/19/20 06:10 Last Admin: 03/19/20 08:39 Dose: 30 ml Documented by: Bupivacaine HCl (Sensorcaine-Mpf 0.25%) Confirm Administered Dose 10 ml .ROUTE .STK-MED ONE Stop: 03/19/20 06:27 Cefazolin Sodium (Ancef) Confirm Administered Dose 2 gm .ROUTE .STK-MED ONE Stop: 03/19/20 06:11 Last Admin: 03/19/20 08:34 Dose: 2 gm Documented by: Cefazolin Sodium (Ancef) Confirm Administered Dose 2 gm .ROUTE .STK-MED ONE Stop: 03/19/20 06:55 Morphine Sulfate 8 mg/Epinephrine HCl 0.3 mg/Cefuroxime Sodium 750 mg/Ketorolac Tromethamine 30 mg/Sodium Chloride 7.9 ml 0 mg .XX ASDIRECTED PRN PRN Reason: Pain Stop: 03/19/20 12:00 Last Admin: 03/19/20 08:39 Dose: 788.3 mg Documented by: Ephedrine Sulfate (Ephedrine 25 Mg/5 Ml Syringe) Confirm Administered Dose 25 mg IV .STK-MED ONE Stop: 03/19/20 07:22 Epinephrine HCl (Adrenalin) Confirm Administered Dose 1 mg .ROUTE .STK-MED ONE Stop: 03/19/20 09:06 Famotidine (Pepcid) 20 mg PO Q12H PENDING SALE TO [facility] Last Admin: 03/20/20 17:59 Dose: Not Given Documented by: Famotidine (Pepcid) 20 mg PO Q12H PENDING SALE TO [facility] Last Admin: 03/20/20 08:36 Dose: 20 mg Documented by: Fentanyl (Sublimaze) Confirm Administered Dose 100 mcg .ROUTE .STK-MED ONE Stop: 03/19/20 06:55 Fentanyl (Sublimaze) 50 mcg IVPUSH [facility] Stop: 03/19/20 09:35 Last Admin: 03/19/20 09:41 Dose: 50 mcg Documented by: Lactated Ringer's (Ringers, Lactated) 1,000 mls @ 125 mls/hr IV ASDIRECTED PENDING SALE TO [facility] Stop: 03/19/20 23:00 Last Admin: 03/19/20 06:30 Dose: 125 mls/hr Documented by: Cefazolin Sodium/Dextrose 2 gm (/ Premix) 50 mls @ 100 mls/hr IV Q8H PENDING SALE TO [facility] Stop: 03/19/20 22:59 Last Admin: 03/20/20 17:58 Dose: Not Given Documented by: Lidocaine HCl (Xylocaine-Mpf 1%) Confirm Administered Dose 4 mls @ as directed .ROUTE .STK-MED ONE Stop: 03/19/20 06:55 Cefazolin Sodium/Dextrose 2 gm (/ Premix) 50 mls @ 100 mls/hr IV Q8H PENDING SALE TO [facility] Stop: 03/20/20 07:29 Last Admin: 03/20/20 06:45 Dose: 100 mls/hr Documented by: Lactated Ringer's (Ringers, Lactated) Confirm Administered Dose 1,000 mls @ as directed .ROUTE .STK-MED ONE Stop: 03/19/20 11:00 Lactated Ringer's (Ringers, Lactated) 1,000 mls @ 75 mls/hr IV ASDIRECTED JAMA Last Admin: 03/21/20 13:48 Dose: 75 mls/hr Documented by: Iodine (Iodine 2% Mild Tincture) Confirm Administered Dose 30 ml .ROUTE .STK-MED ONE Stop: 03/19/20 06:10 Last Admin: 03/19/20 08:31 Dose: 18 ml Documented by: Lidocaine/Sodium Bicarbonate (Buffered Lidocaine 1% In Ns 8.4%) 0.25 ml IDERM ONETIME PRN PRN Reason: Prior to IV Start Stop: 03/19/20 18:00 Last Admin: 03/19/20 06:30 Dose: 0.25 ml Documented by: Magnesium Hydroxide (Milk Of Magnesia) 30 ml PO ONETIME ONE Stop: 03/20/20 14:40 Last Admin: 03/20/20 15:29 Dose: 30 ml Documented by: Morphine Sulfate (Morphine) 2 mg IVPUSH Q2H PRN PRN Reason: Breakthrough Pain Ondansetron HCl (Zofran) Confirm Administered Dose 4 mg .ROUTE .STK-MED ONE Stop: 03/19/20 06:54 Propofol (Diprivan 20 Ml) Confirm Administered Dose 200 mg .ROUTE .STK-MED ONE Stop: 03/19/20 06:54 Propofol (Diprivan 20 Ml) Confirm Administered Dose 200 mg .ROUTE .STK-MED ONE Stop: 03/19/20 08:09 Ropivacaine (Naropin 0.5%) Confirm Administered Dose 30 ml .ROUTE .STK-MED ONE Stop: 03/19/20 09:06 Sodium Chloride (Saline Flush) 10 ml FLUSH ASDIRECTED PRN PRN Reason: Keep Vein Open Stop: 03/19/20 18:00 Sodium Phosphate (Neutra-Phos) 500 mg PO ONETIME ONE Stop: 03/21/20 08:05 Last Admin: 03/21/20 09:05 Dose: 500 mg Documented by: Tranexamic Acid (Cyklokapron) Confirm Administered Dose 1,000 mg .ROUTE .STK-MED ONE Stop: 03/19/20 06:10 Last Admin: 03/19/20 08:44 Dose: 1,000 mg Documented by: Vancomycin HCl (Vancomycin) Confirm Administered Dose 1 gm .ROUTE .STK-MED ONE Stop: 03/19/20 06:10 Last Admin: 03/19/20 08:40 Dose: 1 gm Documented by: - Exam Wound/Incisions: Dressing Dry and Intact General: Alert, Cooperative, No Acute Distress Lungs: Normal Respiratory Effort Extremities: Other (Pt was able to sense touch at BLE. Clarice's negative.) Sepsis Event Note - Evaluation Sepsis Screening Result: No Definite Risk - Focused Exam Vital Signs: Vital Signs Temp Pulse Resp BP Pulse Ox Pulse Ox 03/22/20 06:09 93 L 03/22/20 05:25 97.5 F 83 18 126/60 95 03/22/20 03:40 92 L 03/21/20 21:01 97.9 F 86 18 113/48 L 98 03/21/20 20:27 94 L 03/21/20 20:10 94 L - Problem List Review Problem List Initiated/Reviewed/Updated: Yes - My Orders Last 24 Hours: Active Orders 24 hr Category Date Time Status Communication Order [RC] ASDIRECTED Care 03/21/20 08:02 Active Enema [RC] 0600 Care 03/21/20 15:56 Active Ready for Discharge [RC] PER UNIT ROUTINE Care 03/22/20 07:37 Ordered Heart Healthy Diet [DIET] Diet 03/21/20 Dinner Active CORONAVIRUS COVID-19 RAPID [MOLEC] Routine Lab 03/22/20 02:59 Ordered Levothyroxine [Synthroid] Med 03/21/20 09:00 Active 50 mcg PO DAILY Medication Orders Acetaminophen (Tylenol) 650 mg PO Q6H PRN PRN Reason: Pain Last Admin: 03/20/20 21:33 Dose: 650 mg Documented by: Admin: 03/20/20 15:29 Dose: 650 mg Documented by: JOHN Hydrocodone Bitart/Acetaminophen ([place] 325-5 Mg) 1 tab PO Q4H PRN PRN Reason: Pain (moderate 4-6) Last Admin: 03/22/20 05:28 Dose: 1 tab Documented by: Admin: 03/21/20 21:06 Dose: 1 tab Documented by: Admin: 03/21/20 14:39 Dose: 1 tab Documented by: Admin: 03/21/20 09:08 Dose: 1 tab Documented by: Admin: 03/21/20 00:44 Dose: 1 tab Documented by: Admin: 03/20/20 06:44 Dose: 1 tab Documented by: PATTI Apixaban (Eliquis) 5 mg PO BID PENDING SALE TO [facility] Last Admin: 03/21/20 21:06 Dose: 5 mg Documented by: Admin: 03/21/20 09:08 Dose: 5 mg Documented by: Admin: 03/20/20 21:33 Dose: 5 mg Documented by: Admin: 03/20/20 08:35 Dose: 5 mg Documented by: MEDHAT Bisacodyl (Dulcolax) 5 mg PO DAILY PRN PRN Reason: Constipation Cholecalciferol (Vitamin D3) 75 mcg PO DAILY PENDING SALE TO [facility] Last Admin: 03/21/20 09:04 Dose: 75 mcg Documented by: Admin: 03/20/20 08:34 Dose: 75 mcg Documented by: MEDHAT Cyclobenzaprine HCl (Flexeril) 5 mg PO BID PRN PRN Reason: Spasms Last Admin: 03/20/20 08:43 Dose: 5 mg Documented by: MEDHAT Diltiazem HCl (Cardizem Cd) 180 mg PO DAILY PENDING SALE TO [facility] Last Admin: 03/21/20 09:07 Dose: 180 mg Documented by: Admin: 03/20/20 08:34 Dose: 180 mg Documented by: MEDHAT Docusate Sodium (Colace) 100 mg PO BID PENDING SALE TO [facility] Last Admin: 03/21/20 21:05 Dose: 100 mg Documented by: Admin: 03/21/20 09:08 Dose: 100 mg Documented by: Admin: 03/20/20 21:33 Dose: 100 mg Documented by: Admin: 03/20/20 08:35 Dose: 100 mg Documented by: Admin: 03/19/20 21:47 Dose: 100 mg Documented by: PATTI Famotidine (Pepcid) 20 mg PO Q24H PENDING SALE TO [facility] Last Admin: 03/21/20 21:06 Dose: 20 mg Documented by: Admin: 03/20/20 21:33 Dose: 20 mg Documented by: GEETA Levothyroxine Sodium (Synthroid) 50 mcg PO DAILY PENDING SALE TO [facility] Last Admin: 03/21/20 09:09 Dose: 50 mcg Documented by: PATTI Montelukast Sodium (Singulair) 10 mg PO BEDTIME PENDING SALE TO [facility] Last Admin: 03/21/20 21:06 Dose: 10 mg Documented by: Admin: 03/20/20 21:33 Dose: 10 mg Documented by: Admin: 03/19/20 21:44 Dose: 10 mg Documented by: PATTI Morphine Sulfate (Morphine) 1 mg IVPUSH Q2H PRN PRN Reason: Pain (severe 7-10) Naloxone HCl (Narcan) 0.1 mg IVPUSH Q5M PRN PRN Reason: Oversedation Budesonide/Formoterol 2 Puff Ptom 2 puff INH BID PENDING SALE TO [facility] Last Admin: 03/21/20 20:23 Dose: 2 puff Documented by: Admin: 03/21/20 09:20 Dose: Not Given Documented by: Admin: 03/20/20 23:14 Dose: Not Given Documented by: Admin: 03/20/20 12:41 Dose: Not Given Documented by: Admin: 03/19/20 23:08 Dose: Not Given Documented by: PATTI Ondansetron HCl (Zofran) 4 mg IVPUSH Q6H PRN PRN Reason: Nausea/Vomiting Senna (Senna) 8.6 mg PO BID PRN PRN Reason: Constipation Last Admin: 03/21/20 21:06 Dose: 8.6 mg Documented by: GEETA - Assessment Assessment (Free Text/Narrative):: POD#3 - left TKA - Plan Plan (Free Text/Narrative):: 1. Discharge to [facility] today for continued rehab if pt cleared by Hospitalist service. 2. Continue with PT and OT. WBAT with [facility]. 3. Eliquis BID (chronic medication for the pt). 4. Follow-up at outpatient Clinic next week as scheduled. The pt's case was discussed with Dr. Devries. Dr. Devries visited with the pt today also.
--- NOTE | 2020-03-22 07:49 | PCM.DCSUM1 ---
Discharge Summary - Hospital Course Brief History: Mamie is an 89 yo female who underwent left TKA with Dr. Devries on 03-19-2020. The procedure was completed under spinal anesthesia with MAC. The pt tolerated the procedure well and was admitted to the Medical-Surgical Unit. The pt received Ancef ladonna-operatively. She participated in P.T. and O.T. and progressed slowly. She was allowed to WBAT and used a FWW for mobility. The pt's surgical wound was dressed with a Mepilex dressing and remained clean and dry. On POD#1, the pt resumed use of Eliquis. The pt used TEDs and SCDs also. On POD#1, the pt's hemoglobin was 12.8. Medical management was provided by the Hospitalist service and the pt's hospital course was remarkable for bradycardia, hypotension and need for O2. These issues were closely monitored and addressed by the Hospitalist service. On POD#3, the pt was deemed appropriate for discharge to the long-term for continued rehabilitation and monitoring. - Discharge Data Discharge Date: 03/22/20 Discharge Disposition: Home, Self-Care 01 Condition: Good - Referral to Home Health Primary Care Physician: Adam Street MD - Patient Summary/Data Operative Procedure(s) Performed: left total knee arthroplasty Consults: Consultations 03/19/20 06:18 OT Evaluation and Treatment [CONS] Routine PT Evaluation and Treatment [CONS] Routine 03/19/20 06:20 Consult to Physician [CONS] Routine - Patient Instructions Diet: Usual Diet as Tolerated Activity: Apply Ice, As Tolerated, Elevate Extremity, Full Weight Bearing Driving: Do Not Drive Showering/Bathing: May Shower Wound/Incision Care: Keep Operative Site/Wound Site Clean and Dry, Do NOT Change Dressing Notify Provider of: Fever, Increased Pain, Swelling and Redness, Drainage, Nausea and/or Vomiting Other/Special Instructions: Heart rate was too low, 45 bpm, STOP taking atenolol and follow up with primary doctor to decide if needing to continue or not. Please get up and moving around EVERY HOUR while awake. This helps to prevent blood clots. Please use your walker and have help with mobility as needed. Take a short walk in your home every hour while awake. Please take the Eliquis blood thinner medication as prescribed. At home, please complete the exercises that you learned during the Hospital stay. Schedule for physical therapy. Use the pain medication as needed. The medication may cause drowsiness and constipation. Contact your primary care provider for instructions if you are constipated. You may use a stool softener like docusate sodium or Colace 100mg twice daily and/or a laxative like Miralax daily for constipation. Increase your water and fiber intake while you are using the pain medication. Please discontinue use of the prescription pain medication as soon as able. The goal is to use the least amount of prescription pain medication as needed and to discontinue use of the prescription pain medication as soon as possible. Please do not use other medications that may cause drowsiness (other pain medications, anxiety pills, cold medications, sleeping pills, etc) while using the prescription pain medication. Do not use alcohol while using the pain medication. You may use acetaminophen or Tylenol for pain management, however, please ensure you are not using over 4000 mg or 4 grams of acetaminophen per day from all sources. Your pain medication has 325mg of acetaminophen per tablet. Wear the GABI hose during the day and you may remove these at night. Elevate the limb to decrease swelling. Place ice to the area often. Place a towel between your skin and the blue pad. Use the incentive spirometer often. Take deep breaths throughout the day. Please keep the dressing in place until follo w-up. Notify the Clinic if the dressing becomes saturated. It is normal to have swelling and bruising at the surgical site, as well as above and below the surgical site. Call the Clinic with questions or concerns - [phone] and leave a message for the nurse. - Discharge Plan *PRESCRIPTION DRUG MONITORING PROGRAM REVIEWED*: No *COPY OF PRESCRIPTION DRUG MONITORING REPORT IN PATIENT RHONDA: No Prescriptions/Med Rec: Docusate Sodium [Colace] 100 mg PO BID #60 cap Acetaminophen/HYDROcodone [Jennings 325-5 MG] 1 tab PO Q6H PRN #30 tablet PRN Reason: Pain Home Medications: Home Meds Budesonide/Formoterol [Symbicort 160-4.5 MCG] 2 puff INH BID 09/28/15 [History] Cholecalciferol (Vitamin D3) [Vitamin D3] 3,000 units PO DAILY 09/28/15 [History] Levothyroxine [Synthroid] 50 mcg PO DAILY 09/28/15 [History] Apixaban [Eliquis] 5 mg PO BID 12/27/16 [History] Diltiazem [Cardizem CD] 180 mg PO DAILY 02/12/17 [History] Furosemide 20 mg PO DAILY 03/25/18 [History] Spironolactone [Aldactone] 25 mg PO DAILY 03/25/18 [History] Rosuvastatin [Crestor] 10 mg PO DAILY 03/26/18 [History] Ubidecarenone [Co Q-10] 100 mg PO DAILY 03/05/20 [History] Anastrozole [Arimidex] 1 mg PO DAILY 03/18/20 [History] Potassium Chloride 20 meq PO DAILY 03/18/20 [History] Calcium Citrate/Vitamin D3 [Calcium Citrate - Vit D Caplet] 1 tab PO BID 03/19/20 [History] Montelukast [Singulair] 10 mg PO BEDTIME 03/19/20 [History] Acetaminophen [Tylenol] 650 mg PO Q6HR PRN #0 03/22/20 [Rx] Acetaminophen/HYDROcodone [Jennings 325-5 MG] 1 tab PO Q6H PRN #30 tablet 03/22/20 [Rx] Docusate Sodium [Colace] 100 mg PO BID #60 cap 03/22/20 [Rx] Sennosides [Senna] 8.6 mg PO BID PRN tablet 03/22/20 [Rx] bisacodyL [Dulcolax] 5 mg PO DAILY PRN tablet 03/22/20 [Rx] Patient Handouts: Total Knee Replacement, [id number], Apixaban oral tablets Referrals: Nadine Aviles, PAPaolaC [Physician Scleroscope Tester] - (please attend the scheduled follow up appointments as listed: 03/27/2020 at 230 04/03/2020 at 200 05/02/2020 at 200) Adam Street MD [Primary Care Provider] - - Discharge Summary/Plan Comment DC Time >30 min.: No - Patient Data Vitals - Most Recent: Last Vital Signs Temp 97.5 F 03/22/20 05:25 Pulse 83 03/22/20 05:25 Resp 18 03/22/20 05:25 BP 126/60 03/22/20 05:25 Pulse Ox 93 L 03/22/20 06:09 Weight - Most Recent: 210 lb 14.4 oz I&O - Last 24 hours: Intake & Output 08/19/20 08/20/20 08/20/20 22:59 06:59 14:59 Intake Total 1730 500 Balance 1730 500 Lab Results - Last 24 hrs: Laboratory Results - last 24 hr 03/22/20 03/22/20 Range/Units 05:33 05:33 WBC 6.54 (3.98-10.04) K/mm3 RBC 3.58 L (3.98-5.22) M/mm3 Hgb 10.1 L (11.2-15.7) gm/dl Hct 33.5 L (34.1-44.9) % MCV 93.6 (79.4-94.8) fl MCH 28.2 (25.6-32.2) pg MCHC 30.1 L (32.2-35.5) g/dl RDW Std Deviation 47.2 H (36.4-46.3) fL Plt Count 144 L (182-369) K/mm3 MPV 10.9 (9.4-12.3) fl Neut % (Auto) 66.0 (34.0-71.1) % Lymph % (Auto) 18.3 L (19.3-51.7) % [place] % (Auto) 12.8 H (4.7-12.5) % Eos % (Auto) 2.3 (0.7-5.8) Baso % (Auto) 0.3 (0.1-1.2) % Neut # (Auto) 4.31 (1.56-6.13) K/mm3 Lymph # (Auto) 1.20 (1.18-3.74) K/mm3 [place] # (Auto) 0.84 H (0.24-0.36) K/mm3 Eos # (Auto) 0.15 (0.04-0.36) K/mm3 Baso # (Auto) 0.02 (0.01-0.08) K/mm3 Sodium 136 (136-145) mEq/L Potassium 3.8 (3.5-5.1) mEq/L Chloride 102 (98-107) mEq/L Carbon Dioxide 27 (21-32) mEq/L Anion Gap 10.8 (5-15) BUN 12 (7-18) mg/dL Creatinine 0.9 (0.55-1.02) mg/dL Est Cr Clr Drug Dosing 37.31 mL/min Estimated GFR (MDRD) 59 (>60) mL/min BUN/Creatinine Ratio 13.3 L (14-18) Glucose 99 (83-115) mg/dL Calcium 8.7 (8.5-10.1) mg/dL Phosphorus 2.7 (2.6-4.7) mg/dL Magnesium 1.8 (1.8-2.4) mg/dl ROSS Results - Last 24 hrs: Microbiology 03/19/20 12:32 MRSA Culture - Final Nasal/Axilla/Groin NO MRSA ISOLATED Med Orders - Current: Current Medications Acetaminophen (Tylenol) 650 mg PO Q6H PRN PRN Reason: Pain Last Admin: 03/20/20 21:33 Dose: 650 mg Documented by: Hydrocodone Bitart/Acetaminophen (Jennings 325-5 Mg) 1 tab PO Q4H PRN PRN Reason: Pain (moderate 4-6) Last Admin: 03/22/20 05:28 Dose: 1 tab Documented by: Apixaban (Eliquis) 5 mg PO BID [facility] Last Admin: 03/21/20 21:06 Dose: 5 mg Documented by: Bisacodyl (Dulcolax) 5 mg PO DAILY PRN PRN Reason: Constipation Cholecalciferol (Vitamin D3) 75 mcg PO DAILY [facility] Last Admin: 03/21/20 09:04 Dose: 75 mcg Documented by: Cyclobenzaprine HCl (Flexeril) 5 mg PO BID PRN PRN Reason: Spasms Last Admin: 03/20/20 08:43 Dose: 5 mg Documented by: Diltiazem HCl (Cardizem Cd) 180 mg PO DAILY [facility] Last Admin: 03/21/20 09:07 Dose: 180 mg Documented by: Docusate Sodium (Colace) 100 mg PO BID [facility] Last Admin: 03/21/20 21:05 Dose: 100 mg Documented by: Famotidine (Pepcid) 20 mg PO Q24H [facility] Last Admin: 03/21/20 21:06 Dose: 20 mg Documented by: Levothyroxine Sodium (Synthroid) 50 mcg PO DAILY [facility] Last Admin: 03/21/20 09:09 Dose: 50 mcg Documented by: Montelukast Sodium (Singulair) 10 mg PO BEDTIME [facility] Last Admin: 03/21/20 21:06 Dose: 10 mg Documented by: Morphine Sulfate (Morphine) 1 mg IVPUSH Q2H PRN PRN Reason: Pain (severe 7-10) Naloxone HCl (Narcan) 0.1 mg IVPUSH Q5M PRN PRN Reason: Oversedation Budesonide/Formoterol 2 Puff Ptom 2 puff INH BID [facility] Last Admin: 03/21/20 20:23 Dose: 2 puff Documented by: Ondansetron HCl (Zofran) 4 mg IVPUSH Q6H PRN PRN Reason: Nausea/Vomiting Senna (Senna) 8.6 mg PO BID PRN PRN Reason: Constipation Last Admin: 03/21/20 21:06 Dose: 8.6 mg Documented by: Discontinued Medications Hydrocodone Bitart/Acetaminophen (Jennings 325-5 Mg) 1 - 2 tab PO Q4H PRN PRN Reason: Pain Last Admin: 03/19/20 15:46 Dose: 1 tab Documented by: Atenolol (Tenormin) 50 mg PO DAILY [facility] Bupivacaine HCl (Sensorcaine-Mpf 0.25%) Confirm Administered Dose 20 ml .ROUTE .STK-MED ONE Stop: 03/19/20 06:10 Last Admin: 03/19/20 08:39 Dose: 30 ml Documented by: Bupivacaine HCl (Sensorcaine-Mpf 0.25%) Confirm Administered Dose 10 ml .ROUTE .STK-MED ONE Stop: 03/19/20 06:27 Cefazolin Sodium (Ancef) Confirm Administered Dose 2 gm .ROUTE .STK-MED ONE Stop: 03/19/20 06:11 Last Admin: 03/19/20 08:34 Dose: 2 gm Documented by: Cefazolin Sodium (Ancef) Confirm Administered Dose 2 gm .ROUTE .STK-MED ONE Stop: 03/19/20 06:55 Morphine Sulfate 8 mg/Epinephrine HCl 0.3 mg/Cefuroxime Sodium 750 mg/Ketorolac Tromethamine 30 mg/Sodium Chloride 7.9 ml 0 mg .XX ASDIRECTED PRN PRN Reason: Pain Stop: 03/19/20 12:00 Last Admin: 03/19/20 08:39 Dose: 788.3 mg Documented by: Ephedrine Sulfate (Ephedrine 25 Mg/5 Ml Syringe) Confirm Administered Dose 25 mg IV .STK-MED ONE Stop: 03/19/20 07:22 Epinephrine HCl (Adrenalin) Confirm Administered Dose 1 mg .ROUTE .STK-MED ONE Stop: 03/19/20 09:06 Famotidine (Pepcid) 20 mg PO Q12H [facility] Last Admin: 03/20/20 17:59 Dose: Not Given Documented by: Famotidine (Pepcid) 20 mg PO Q12H [facility] Last Admin: 03/20/20 08:36 Dose: 20 mg Documented by: Fentanyl (Sublimaze) Confirm Administered Dose 100 mcg .ROUTE .STK-MED ONE Stop: 03/19/20 06:55 Fentanyl (Sublimaze) 50 mcg IVPUSH STAT [facility] Stop: 03/19/20 09:35 Last Admin: 03/19/20 09:41 Dose: 50 mcg Documented by: Lactated Ringer's (Ringers, Lactated) 1,000 mls @ 125 mls/hr IV ASDIRECTED [facility] Stop: 03/19/20 23:00 Last Admin: 03/19/20 06:30 Dose: 125 mls/hr Documented by: Cefazolin Sodium/Dextrose 2 gm (/ Premix) 50 mls @ 100 mls/hr IV Q8H [facility] Stop: 03/19/20 22:59 Last Admin: 03/20/20 17:58 Dose: Not Given Documented by: Lidocaine HCl (Xylocaine-Mpf 1%) Confirm Administered Dose 4 mls @ as directed .ROUTE .STK-MED ONE Stop: 03/19/20 06:55 Cefazolin Sodium/Dextrose 2 gm (/ Premix) 50 mls @ 100 mls/hr IV Q8H [facility] Stop: 03/20/20 07:29 Last Admin: 03/20/20 06:45 Dose: 100 mls/hr Documented by: Lactated Ringer's (Ringers, Lactated) Confirm Administered Dose 1,000 mls @ as directed .ROUTE .STK-MED ONE Stop: 03/19/20 11:00 Lactated Ringer's (Ringers, Lactated) 1,000 mls @ 75 mls/hr IV ASDIRECTED [facility] Last Admin: 03/21/20 13:48 Dose: 75 mls/hr Documented by: Iodine (Iodine 2% Mild Tincture) Confirm Administered Dose 30 ml .ROUTE .STK-MED ONE Stop: 03/19/20 06:10 Last Admin: 03/19/20 08:31 Dose: 18 ml Documented by: Lidocaine/Sodium Bicarbonate (Buffered Lidocaine 1% In Ns 8.4%) 0.25 ml IDERM ONETIME PRN PRN Reason: Prior to IV Start Stop: 03/19/20 18:00 Last Admin: 03/19/20 06:30 Dose: 0.25 ml Documented by: Magnesium Hydroxide (Milk Of Magnesia) 30 ml PO ONETIME ONE Stop: 03/20/20 14:40 Last Admin: 03/20/20 15:29 Dose: 30 ml Documented by: Morphine Sulfate (Morphine) 2 mg IVPUSH Q2H PRN PRN Reason: Breakthrough Pain Ondansetron HCl (Zofran) Confirm Administered Dose 4 mg .ROUTE .STK-MED ONE Stop: 03/19/20 06:54 Propofol (Diprivan 20 Ml) Confirm Administered Dose 200 mg .ROUTE .STK-MED ONE Stop: 03/19/20 06:54 Propofol (Diprivan 20 Ml) Confirm Administered Dose 200 mg .ROUTE .STK-MED ONE Stop: 03/19/20 08:09 Ropivacaine (Naropin 0.5%) Confirm Administered Dose 30 ml .ROUTE .STK-MED ONE Stop: 03/19/20 09:06 Sodium Chloride (Saline Flush) 10 ml FLUSH ASDIRECTED PRN PRN Reason: Keep Vein Open Stop: 03/19/20 18:00 Sodium Phosphate (Neutra-Phos) 500 mg PO ONETIME ONE Stop: 03/21/20 08:05 Last Admin: 03/21/20 09:05 Dose: 500 mg Documented by: Tranexamic Acid (Cyklokapron) Confirm Administered Dose 1,000 mg .ROUTE .STK-MED ONE Stop: 03/19/20 06:10 Last Admin: 03/19/20 08:44 Dose: 1,000 mg Documented by: Vancomycin HCl (Vancomycin) Confirm Administered Dose 1 gm .ROUTE .STK-MED ONE Stop: 03/19/20 06:10 Last Admin: 03/19/20 08:40 Dose: 1 gm Documented by:
[2020-03-22] MEDS: BUDESONIDE INH SCH (08:14)
[2020-03-22] MEDS: FORMOTEROL INH SCH (08:14)
--- NOTE | 2020-03-22 09:02 | PCM.CONSN ---
- General Info Date of Service: 03/22/20 Admission Dx/Problem (Free Text): Admission Diagnosis/Problem Admission Diagnosis/Problem Osteoarthritis of knee, s/p left total knee arthroplasty Subjective Update: The patient is seen by me at bedside. The patient has been eating and drinking well. Worked with PT this morning already. She does not feel short of breath this AM. Denies chest pain, no dizziness, no lightheadedness. No nausea, vomiting. She did have enema last night and had small BM. Nurses do note patient had small amount of bright red blood in stool this AM. - Patient Data Vitals - Most Recent: Last Vital Signs Temp 97.5 F 03/22/20 05:25 Pulse 83 03/22/20 05:25 Resp 18 03/22/20 05:25 BP 126/60 03/22/20 05:25 Pulse Ox 91 L 03/22/20 08:14 Weight - Most Recent: 210 lb 14.4 oz I&O - Last 24 Hours: Intake & Output 03/21/20 03/22/20 03/22/20 22:59 06:59 14:59 Intake Total 1930 500 Balance 1930 500 Lab Results Last 24 Hours: Laboratory Results - last 24 hr 03/22/20 03/22/20 Range/Units 05:33 05:33 WBC 6.54 (3.98-10.04) K/mm3 RBC 3.58 L (3.98-5.22) M/mm3 Hgb 10.1 L (11.2-15.7) gm/dl Hct 33.5 L (34.1-44.9) % MCV 93.6 (79.4-94.8) fl MCH 28.2 (25.6-32.2) pg MCHC 30.1 L (32.2-35.5) g/dl RDW Std Deviation 47.2 H (36.4-46.3) fL Plt Count 144 L (182-369) K/mm3 MPV 10.9 (9.4-12.3) fl Neut % (Auto) 66.0 (34.0-71.1) % Lymph % (Auto) 18.3 L (19.3-51.7) % [place] % (Auto) 12.8 H (4.7-12.5) % Eos % (Auto) 2.3 (0.7-5.8) Baso % (Auto) 0.3 (0.1-1.2) % Neut # (Auto) 4.31 (1.56-6.13) K/mm3 Lymph # (Auto) 1.20 (1.18-3.74) K/mm3 [place] # (Auto) 0.84 H (0.24-0.36) K/mm3 Eos # (Auto) 0.15 (0.04-0.36) K/mm3 Baso # (Auto) 0.02 (0.01-0.08) K/mm3 Sodium 136 (136-145) mEq/L Potassium 3.8 (3.5-5.1) mEq/L Chloride 102 (98-107) mEq/L Carbon Dioxide 27 (21-32) mEq/L Anion Gap 10.8 (5-15) BUN 12 (7-18) mg/dL Creatinine 0.9 (0.55-1.02) mg/dL Est Cr Clr Drug Dosing 37.31 mL/min Estimated GFR (MDRD) 59 (>60) mL/min BUN/Creatinine Ratio 13.3 L (14-18) Glucose 99 (83-115) mg/dL Calcium 8.7 (8.5-10.1) mg/dL Phosphorus 2.7 (2.6-4.7) mg/dL Magnesium 1.8 (1.8-2.4) mg/dl - Exam General: Alert, Oriented, Cooperative HEENT: Pupils Equal, Pupils Reactive, EOMI Neck: Supple Cardiovascular: Regular Rate, Regular Rhythm. No: No Murmurs, Murmurs GI/Abdominal Exam: Normal Bowel Sounds, Soft, Non-Tender Extremities: Normal Inspection, No Pedal Edema, Normal Capillary Refill Peripheral Pulses: 2+: Posterior Tibial (L), Posterior Tibial (R) Skin: Warm, Dry, Intact Neurological: No New Focal Deficit Sepsis Event Note - Evaluation Sepsis Screening Result: No Definite Risk - Focused Exam Vital Signs: Vital Signs Temp Pulse Resp BP Pulse Ox Pulse Ox 03/22/20 08:14 91 L 03/22/20 06:09 93 L 03/22/20 05:25 97.5 F 83 18 126/60 95 03/22/20 03:40 92 L 03/21/20 21:01 97.9 F 86 18 113/48 L 98 Consult PN Assessment/Plan Procedures: Procedures AIRWAY INHALATION TREATMENT (09/07/16) ASSAY OF BLOOD/URIC ACID (12/27/16) ASSAY OF FREE THYROXINE (09/07/16) ASSAY OF MAGNESIUM (11/25/16) ASSAY OF NATRIURETIC PEPTIDE (03/20/19) ASSAY OF TROPONIN QUANT (03/20/19) ASSAY THYROID STIM HORMONE (09/15/16) BL SMEAR W/DIFF WBC COUNT (03/20/19) BLOOD GASES ANY COMBINATION (03/20/19) BREATHING CAPACITY TEST (06/27/14) BX BREAST 1ST LESION US IMAG (05/28/17) C-REACTIVE PROTEIN (12/27/16) CARDIOVASCULAR STRESS TEST (01/11/20) CHEST X-RAY 1 VIEW FRONTAL (05/28/17) CO/MEMBANE DIFFUSE CAPACITY (06/27/14) COMP SCREEN MAMMOGRAM ADD-ON (03/11/16) COMPLETE CBC AUTOMATED (03/20/19) COMPLETE CBC W/AUTO DIFF WBC (01/15/17) COMPREHEN METABOLIC PANEL (03/20/19) CREATINE MB FRACTION (09/07/16) CT ABD & PELV 1/> REGNS (07/10/15) CT ANGIOGRAPHY CHEST (02/19/17) CT HEAD/BRAIN W/O DYE (03/05/20) CT MAXILLOFACIAL W/O DYE (03/05/20) CT NECK SPINE W/O DYE (03/05/20) CULTR BACTERIA EXCEPT BLOOD (02/12/17) CULTURE AEROBIC IDENTIFY (02/12/17) DRAINAGE OF SKIN ABSCESS (02/12/17) ELECTROCARDIOGRAM TRACING (03/20/19) EMERGENCY DEPT VISIT (03/05/20) EMERGENCY DEPT VISIT (03/20/19) EMERGENCY DEPT VISIT (02/12/17) EMERGENCY DEPT VISIT (11/25/16) EVALUATE PT USE OF INHALER (09/07/16) FIBRIN DEGRADATION QUANT (02/19/17) GAIT TRAINING THERAPY (09/07/16) GLUCOSE BLOOD TEST (10/01/15) HT MUSCLE IMAGE SPECT MULT (01/11/20) HYDRATE IV INFUSION ADD-ON (12/27/16) HYDRATION IV INFUSION INIT (03/21/19) IMMUNOHISTO ANTB 1ST STAIN (05/28/17) IMMUNOHISTO ANTB ADDL SLIDE (05/28/17) MEASURE BLOOD OXYGEN LEVEL (09/07/16) METABOLIC PANEL TOTAL CA (09/07/16) MICROBE SUSCEPTIBLE ROSS (02/12/17) MR-STAPH DNA AMP PROBE (10/01/15) MRI LUMBAR SPINE W/DYE (03/27/14) MRI LUMBAR SPINE W/O DYE (08/27/18) OT EVAL LOW COMPLEX 30 MIN (09/07/16) OT EVALUATION (10/01/15) PT EVAL LOW COMPLEX 20 MIN (06/28/19) PT EVAL MOD COMPLEX 30 MIN (09/07/16) PT EVALUATION (10/01/15) RBC SED RATE AUTOMATED (12/27/16) RMVL DEVITAL TIS 20 CM/< (08/10/19) ROUTINE VENIPUNCTURE (03/20/19) SELF CARE MNGMENT TRAINING (10/01/15) SMEAR GRAM STAIN (02/12/17) THER/PROPH/DIAG INJ IV PUSH (12/27/16) THER/PROPH/DIAG IV INF INIT (09/07/16) THERAPEUTIC ACTIVITIES (08/10/19) THERAPEUTIC EXERCISES (09/07/16) THROMBOPLASTIN TIME PARTIAL (09/06/15) TISSUE EXAM BY PATHOLOGIST (05/28/17) TX/PRO/DX INJ NEW DRUG ADDON (12/27/16) TX/PRO/DX INJ SAME DRUG PARTS PROFESSIONAL (12/27/16) ULTRASOUND BREAST LIMITED (05/19/17) URINALYSIS AUTO W/SCOPE (01/15/17) URINE BACTERIA CULTURE (01/27/14) URINE CULTURE/COLONY COUNT (01/15/17) WITHDRAWAL OF ARTERIAL BLOOD (03/20/19) X-RAY EXAM ABDOMEN 2 VIEWS (03/21/19) X-RAY EXAM CHEST 2 VIEWS (03/20/19) X-RAY EXAM COMPLETE ABDOMEN (01/15/17) X-RAY EXAM OF KNEE 1 OR 2 (10/01/15) X-RAY EXAM OF SHOULDER (01/15/17) (1) Osteoarthritis SNOMED Code(s): 104276046 Code(s): M19.90 - UNSPECIFIED OSTEOARTHRITIS, UNSPECIFIED SITE Current Visit: Yes Qualifiers: Osteoarthritis location: multiple joints Osteoarthritis type: primary Qualified Code(s): M89.49 - Other hypertrophic osteoarthropathy, multiple sites (2) Paroxysmal atrial fibrillation SNOMED Code(s): 092645817 Code(s): I48.0 - PAROXYSMAL ATRIAL FIBRILLATION Current Visit: Yes (3) COPD (chronic obstructive pulmonary disease) SNOMED Code(s): 06542900 Code(s): J44.9 - CHRONIC OBSTRUCTIVE PULMONARY DISEASE, UNSPECIFIED Current Visit: Yes (4) Hypothyroidism SNOMED Code(s): 98673958 Code(s): E03.9 - HYPOTHYROIDISM, UNSPECIFIED Current Visit: Yes (5) HX: breast cancer SNOMED Code(s): 776990825 Code(s): Z85.3 - PERSONAL HISTORY OF MALIGNANT NEOPLASM OF BREAST Current Visit: Yes (6) Hypophosphatemia SNOMED Code(s): 2596302 Code(s): E83.39 - OTHER DISORDERS OF PHOSPHORUS METABOLISM Current Visit: Yes (7) Hypercholesterolemia SNOMED Code(s): 23628618 Code(s): E78.00 - PURE HYPERCHOLESTEROLEMIA, UNSPECIFIED Current Visit: Yes (8) Vitamin D deficiency SNOMED Code(s): 86590596 Code(s): E55.9 - VITAMIN D DEFICIENCY, UNSPECIFIED Current Visit: Yes (9) Sleep apnea in adult SNOMED Code(s): 74370253 Code(s): G47.30 - SLEEP APNEA, UNSPECIFIED Current Visit: Yes (10) Constipation SNOMED Code(s): 22666084 Code(s): K59.00 - CONSTIPATION, UNSPECIFIED Current Visit: Yes Qualifiers: Qualified Code(s): K59.03 - Drug induced constipation (11) Hematochezia SNOMED Code(s): 050503844 Code(s): K92.1 - MELENA Current Visit: Yes Problem List Initiated/Reviewed/Updated: Yes Plan: Osteoarthritis s/p left knee arthroplasty POD 2 PT worked with patient and recommends dc to long-term or detention for further PT. PLAN - Continue working with PT - Pain management as stated below - DVT prophylaxis as stated below. Bright red blood per rectum, Hx hemorrhoids Very very small amount this AM. I examined stool and there are 3 spots, very thin, about 0.5cm areas of red blood on top of stool. H/H stable with Hgb 10.1. Pt has been constipated, most likely due hemorrhoids. PLAN - Hold evening dose of Eliquis. Restart in AM if no blood in stool. - Examine stool for bright red blood and if continues or worsens, go to ER or PCP. - Follow up with PCP in 1 week. Paroxysmal atrial fibrillation On Eliquis 5mg oral BID at home On diltiazem 180mg po daily and atenolol 50mg oral daily at home Currently NSR HR has been 61-86 BP 123/45 PLAN - Discharge on diltiazem 180mg po daily. - Stop taking atenolol. - Pt on home eliquis 5mg oral BID. Hypophosphatemia- resolved Phosphorus is 2.7 COPD No wheezes on auscultation. Takes Symbicort twice a day at home PLAN - Continue symbicort two puffs twice a day at home Hx Breast cancer Home medicine of anastrazole 1mg oral daily at home. PLAN - Continue anastrazole 1mg oral daily at discharge. - Follow up with oncologist at previously scheduled appointment for next month. Hypothyroidism TSH check on 03/01/2020 was 0.98 Home med is levothyroxine 50mcg daily PLAN - Continue levothyroxine. Vitamin D deficiency Pt takes Vitamin D3 3000u daily at home PLAN - Continue vitamin D supplementation. Hypercholesterolemia Home medication is rosuvastatin 10mg oral daily PLAN - Patient will discuss continuing statin with PCP after discharge. LE dependent edema Home medications of spironolactone 25mg oral daily and lasix 20mg oral daily. PLAN -Continue lasix and spironolactone at discharge. Sleep Apnea CPAP at home PLAN - Continue CPAP with home settings. Constipation Relieved with enema last night. PLAN - Up and moving with PT. - Constipation prophylaxis with docusate 100mg oral BID at home. Hx of stroke No obvious residual effects Patient eats regular diet without reported aspiration, choking PLAN - Eliquis. - PT consulted PROPHYLAXIS GI- Pepcid 20mg oral BID. DVT-Eliquis 5mg oral BID restarted tomorrow AM. CODE STATUS Full code DISPOSITION The patient is discharged today to [facility] for long-term placement. Follow up with PCP in 1 week to discuss hospitalization and medication changes.
[2020-03-22] MEDS: Docusate Sodium 100 MG Cap PO SCH (09:40)
[2020-03-22] MEDS: Apixaban 5 MG Tab PO SCH (09:40)
[2020-03-22] MEDS: Cholecalciferol (Vitamin D3) 25 MCG Tab PO SCH (09:40)
[2020-03-22] MEDS: Levothyroxine 50 MCG Tab PO SCH (09:40)
[2020-03-22] MEDS: Diltiazem 180 MG Cap.CD PO SCH (09:40)
[2020-03-22 16:00] VITALS: BP 112/42; PULSE 84
--- NOTE | 2020-03-25 23:14 | OR ---
DATE OF OPERATION: 03/19/2020 SURGEON: Emeterio Devries MD OPERATION PERFORMED: Left total knee arthroplasty. PREOPERATIVE DIAGNOSIS: Left knee osteoarthrosis. POSTOPERATIVE DIAGNOSIS: Left knee osteoarthrosis. ANESTHESIA: Local MAC with spinal. ANESTHESIA PROVIDER: Filipe Olivarez CRNA ASSISTANTS: Nadine Aviles PA-C, and Mamta Shoemaker LPN. ESTIMATED BLOOD LOSS: 5 mL. COMPLICATIONS: None. CONDITION: Stable. IMPLANTS: 1. Gareth size 5 cemented PS femur. 2. Gareth size 5 universal tibial baseplate. 3. Gareth size 5, 9 mm TS X3 polyethylene insert. 4. Romulus size 32 x 10 mm asymmetric patella. DESCRIPTION OF PROCEDURE: The patient was identified in the preop holding area. Proper site was marked and identified by the surgeon. The patient was taken back to the operating theater. After adequate anesthesia, the patient's left lower extremity had a nonsterile tourniquet applied and it was sterilely prepped and draped in the usual sterile fashion. OR time-out was performed. The patient received 2 g IV Ancef. At this time, the left lower extremity was exsanguinated. Tourniquet was insufflated to 300 mmHg. Standard medial parapatellar incision was made. Medial parapatellar arthrotomy was created. Deep fibers of the MCL were raised and anterior fat pad was resected. At this time, attention was turned to the patella. Patella measured 24, it was resected to a 14 for 32 x 10 mm patella. Drill holes were then drilled and found to be in adequate position. The drill was then drilled in the distal femur and the intramedullary distal femoral cutting guide was then placed. 10 mm was resected off the distal femur and was found to be an adequate resection. Sizing guide was placed. It was found to be a size 5 PS femur that was shown on the implant record at the beginning of this dictation. The drill holes were drilled for the epicondylar axis using [place] line and epicondyles as reference. At this time, the 4-in-1 cutting block was placed. An anterior posterior and anterior and posterior chamfer cuts were then completed. Box cut was completed at this time. Attention was turned to the tibia. The posterior medial lateral retractors were placed. The extramedullary tibial guide was placed. It was placed in the old footprint of the ACL. It was aligned with the center of the ankle and 0 degrees of slope, 9 mm was then resected off the unaffected side. There was found to be an acceptable reduction. At this time, posterior osteophytes were removed along with medial and lateral meniscus. A trial implant was placed with a correct sized tibia that was mentioned at the beginning of the dictation. A Romulus size 5, 9 mm TS polyethylene insert was then placed. The patient's knee was brought through range of motion. The patella was tracking centrally and was stable to varus and valgus stress. Alignment was found to be roughly at 0 degrees. The tibia was stamped and drilled in proper rotation. All cut surfaces were irrigated and dried. The universal tibial base plate was impacted in place. Next, the Gareth size 5 PS femur impacted into place and the Romulus size 5, 9 mm TS polyethylene insert was placed. The patient's knee was brought into full extension. The patella was then cemented in place at this time. One liter dilute Betadine solution was irrigated through the knee along with 3 L of pulse lavage irrigation with Ancef. Periarticular injection was then completed. The patient's knee was brought through a range of motion. Once the cement had time to set up and it was found to be stable to varus valgus stress, the patella was tracking centrally with full range of motion. At this time, a #2 barbed suture was used for closure of the medial parapatellar arthrotomy. Topical tranexamic acid was placed. 2-0 Vicryl was used subcutaneously, Prineo was used for the skin. The patient tolerated the procedure well and was sent to the PACU in stable condition. MMODAL /[id number] YOSI
== END 2020-03-22 13:10 | DRG 470 ==
LOC: JD.SDS 05:58 → JD.MS 05:59 → JD.SDS 06:19 → JD.MS 06:20
PROVIDERS: ADMIT Orthopaedic Surgery; ATTEND Orthopaedic Surgery
PROC: 0SRD0J9 Replacement of Left Knee Joint with Synthetic Substitute, Cemented, Open Approach (ICD-10-PCS; principal; 2020-03-19)
DX: M17.12 Unilateral primary osteoarthritis, left knee (principal); I50.32 Chronic diastolic (congestive) heart failure; Q21.1 Atrial septal defect; Z79.890 Hormone replacement therapy; Z79.899 Other long term (current) drug therapy; I48.0 Paroxysmal atrial fibrillation; J44.9 Chronic obstructive pulmonary disease, unspecified; G47.33 Obstructive sleep apnea (adult) (pediatric); Z91.048 Other nonmedicinal substance allergy status; Z88.8 Allergy status to other drugs, medicaments and biological substances; F41.9 Anxiety disorder, unspecified; F32.9 Major depressive disorder, single episode, unspecified; E78.5 Hyperlipidemia, unspecified; E03.9 Hypothyroidism, unspecified; M85.80 Other specified disorders of bone density and structure, unspecified site; I83.93 Asymptomatic varicose veins of bilateral lower extremities; Z90.49 Acquired absence of other specified parts of digestive tract; Z98.890 Other specified postprocedural states; H91.90 Unspecified hearing loss, unspecified ear; H54.7 Unspecified visual loss; K21.9 Gastro-esophageal reflux disease without esophagitis; R32 Unspecified urinary incontinence; F03.90 Unspecified dementia, unspecified severity, without behavioral disturbance, psychotic disturbance, mood disturbance, and anxiety; Z86.73 Personal history of transient ischemic attack (TIA), and cerebral infarction without residual deficits; E66.9 Obesity, unspecified; L82.1 Other seborrheic keratosis; Z85.3 Personal history of malignant neoplasm of breast; E78.00 Pure hypercholesterolemia, unspecified; E55.9 Vitamin D deficiency, unspecified; I11.0 Hypertensive heart disease with heart failure; K59.03 Drug induced constipation; Z20.828 Contact with and (suspected) exposure to other viral communicable diseases
CPT/HCPCS: 01402; 36415; 64450; 73560-26-LT; 73560-LT; 80048; 80053; 82550; 83735; 84100; 84484; 85025; 85027; 87070; 87641; 93005; 94640; 94761; 97110-GP; 97116-GP; 97161-GP; 97165-GO; 97530-GP; 97535-GO; 99222; 99231; 99232; A9270-GY; C1713; C1776; J0171; J0690; J0697; J1885; J2001; J2270; J2405; J2704; J2795; J3010; J3370; J3490; J7120; U0002

== ENCOUNTER 2020-03-25 10:34 | Emergency (ER) | payer MEDICARE, BC ==
[2020-03-25 11:00] VITALS: BP 115/67; PULSE 102
--- NOTE | 2020-03-25 11:10 | EDM.PDOC ---
ED HPI GENERAL MEDICAL PROBLEM - General Chief Complaint: Skin Complaint Stated Complaint: POST SURGICAL KNEE PAIN Time Seen by Provider: 03/25/20 11:08 Source of Information: Reports: Patient, [place] Records History Limitations: Reports: No Limitations - History of Present Illness INITIAL COMMENTS - FREE TEXT/NARRATIVE: Patient is an 89-year-old female who presents to the emergency department from urgent care center with complaints of increased redness, warmth, and pain to her left knee. She had a left total knee completed on March [address] Devries. She states that the pain has not improved since postop and that she feels it may be slightly worse. She has been wearing knee-high GABI hose daily. She has [place] as needed for pain and her last dose was at breakfast this morning. She denies any fever, chills, nausea, vomiting. Left Lower Leg Pain Score (Numeric/FACES): 8 - Related Data Allergies Allergy/AdvReac Type Severity Reaction Status Date / Time adhesive Allergy Intermediate Hives Verified 03/19/20 11:33 Home Meds: Home Meds Budesonide/Formoterol [Symbicort 160-4.5 MCG] 2 puff INH BID 09/28/15 [History] Cholecalciferol (Vitamin D3) [Vitamin D3] 3,000 units PO DAILY 09/28/15 [History] Levothyroxine [Synthroid] 50 mcg PO DAILY 09/28/15 [History] Apixaban [Eliquis] 5 mg PO BID 12/27/16 [History] Diltiazem [Cardizem CD] 180 mg PO DAILY 02/12/17 [History] Furosemide 20 mg PO DAILY 03/25/18 [History] Spironolactone [Aldactone] 25 mg PO DAILY 03/25/18 [History] Rosuvastatin [Crestor] 10 mg PO DAILY 03/26/18 [History] Ubidecarenone [Co Q-10] 100 mg PO DAILY 03/05/20 [History] Anastrozole [Arimidex] 1 mg PO DAILY 03/18/20 [History] Potassium Chloride 20 meq PO DAILY 03/18/20 [History] Calcium Citrate/Vitamin D3 [Calcium Citrate - Vit D Caplet] 1 tab PO BID 03/19/20 [History] Montelukast [Singulair] 10 mg PO BEDTIME 03/19/20 [History] Acetaminophen [Tylenol] 650 mg PO Q6HR PRN #0 03/22/20 [Rx] Acetaminophen/HYDROcodone [[place] 325-5 MG] 1 tab PO Q6H PRN #30 tablet 03/22/20 [Rx] Cimetidine [Tagamet] 300 mg PO DAILY #14 tab 03/22/20 [Rx] Docusate Sodium [Colace] 100 mg PO BID #60 cap 03/22/20 [Rx] Sennosides [Senna] 8.6 mg PO BID PRN tablet 03/22/20 [Rx] bisacodyL [Dulcolax] 5 mg PO DAILY PRN tablet 03/22/20 [Rx] Past Medical History HEENT History: Reports: Cataract, Hard of Hearing, Impaired Vision Other HEENT History: wears glasses, tongue papilloma, mastodynia, arterial occlusion of retina, throat pain Cardiovascular History: Reports: Afib, Blood Clots/VTE/DVT, Heart Failure, High Cholesterol, Hypertension, PVD, Other (See Below) Other Cardiovascular History: secundum atrial septal defect, chronic venous insufficiency, varicose veins, mitral valve regurgitation, paroxysmal atrial fibrillation, edema Respiratory History: Reports: COPD, Sleep Apnea, SOB Other Respiratory History: uses CPAP Gastrointestinal History: Reports: GERD, Hemorrhoids, Other (See Below) Other Gastrointestinal History: abdominal pain, reflux Genitourinary History: Reports: Urinary Incontinence Other Genitourinary History: hematuria [employer] History: Reports: Other (See Below) Other [employer] History: hysterectomy, breast lumpectomy Musculoskeletal History: Reports: Back Pain, Chronic, Osteoarthritis, Osteoporosis Other Musculoskeletal History: spinal stenosis, gait abnormality, myalgia, restless leg syndrome, myalgia, myositis, joint pain, cartilage/bone disorder Neurological History: Reports: Other (See Below) Other Neuro History: cerviclagia, dementia, memory loss, CVA Psychiatric History: Reports: Anxiety, Depression, Other (See Below) Endocrine/Metabolic History: Reports: Hypothyroidism, Obesity/BMI 30+, Osteopenia Other Endocrine/Metabolic History: goiter, thyroid nodule, thyroid neoplasm Hematologic History: Reports: Blood Transfusion(s) Immunologic History: Reports: None Oncologic (Cancer) History: Reports: Breast Other Dermatologic History: rash to hands, contact dermatitis, eczema, seborrheic keratosis, skin neoplasm, pyogenic granuloma of skin, venous stasis ulcer, lipoma - Infectious Disease History Infectious Disease History: Reports: Measles, MRSA Other Infectious Disease History: nares 2016 prior to knee surgery - Past Surgical History Head Surgeries/Procedures: Reports: None HEENT Surgical History: Reports: Cataract Surgery Cardiovascular Surgical History: Reports: Varicose Respiratory Surgical History: Reports: None GI Surgical History: Reports: Appendectomy, Cholecystectomy, Colonoscopy Female Surgical History: Reports: Hysterectomy Other Endocrine Surgeries/Procedures: thyroid lesion Neurological Surgical History: Reports: Lumbar Spine Musculoskeletal Surgical History: Reports: Carpal Tunnel, Knee Replacement Other Musculoskeletal Surgeries/Procedures:: back surgery, bilateral carpal tunnel surgery, lumbar laminectomy with spinal stenosis decompression, osteopenia, restless leg syndrome, sciatica, spinal stenosis Oncologic Surgical History: Reports: Biopsy of Breast, Mastectomy Social & Family History - Family History Family Medical History: Noncontributory Endocrine/Metabolic: Reports: Diabetes, Type I Oncologic: Reports: Bladder, Lung, Pancreatic - Tobacco Use Smoking Status *Q: Never Smoker - Caffeine Use Caffeine Use: Reports: Coffee - Recreational Drug Use Recreational Drug Use: No - Living Situation & Occupation Living situation: Reports: , with Spouse Occupation: Retired ED ROS GENERAL - Review of Systems Review Of Systems: See Below Constitutional: Denies: Fever, Chills, Weakness HEENT: Reports: No Symptoms Respiratory: Reports: No Symptoms Cardiovascular: Reports: No Symptoms, Palpitations GI/Abdominal: Reports: No Symptoms. Denies: Nausea, Vomiting : Reports: No Symptoms Musculoskeletal: Reports: No Symptoms, Joint Swelling (left knee) Skin: Reports: Erythema (left lateral knee) Neurological: Reports: No Symptoms Psychiatric: Reports: No Symptoms Hematologic/Lymphatic: Reports: No Symptoms Immunologic: Reports: No Symptoms ED EXAM, SKIN/RASH Exam: See Below Exam Limited By: No Limitations General Appearance: Alert, WD/WN, No Apparent Distress Respiratory/Chest: No Respiratory Distress, Lungs Clear, Normal Breath Sounds, No Accessory Muscle Use, Chest Non-Tender Cardiovascular: Normal Peripheral Pulses, Regular Rate, Rhythm, No Edema, No Gallop, No JVD, No Murmur, No Rub Extremities: Other (Midline incision to left knee well approximated and mostly healed with no purulent drainage present. Area of redness and warmth to the lateral aspect of the left knee extending down the anterior steiner.) Neurological: Alert, Oriented, CN II-XII Intact, Normal Cognition, Normal Gait, Normal Reflexes, No Motor/Sensory Deficits Psychiatric: Normal Affect, Normal Mood Course - Vital Signs Last Recorded V/S: Last Vital Signs Temp 96.9 F 03/25/20 10:53 Pulse 102 H 03/25/20 10:53 Resp 20 03/25/20 10:53 BP 115/67 03/25/20 10:53 Pulse Ox 97 03/25/20 10:53 - Orders/Labs/Meds Labs: Laboratory Tests 03/25/20 03/25/20 Range/Units 11:19 11:19 WBC 5.54 (3.98-10.04) K/mm3 RBC 3.52 L (3.98-5.22) M/mm3 Hgb 10.3 L (11.2-15.7) gm/dl Hct 32.7 L (34.1-44.9) % MCV 92.9 (79.4-94.8) fl MCH 29.3 (25.6-32.2) pg MCHC 31.5 L (32.2-35.5) g/dl RDW Std Deviation 46.7 H (36.4-46.3) fL Plt Count 265 D (182-369) K/mm3 MPV 9.7 (9.4-12.3) fl Neut % (Auto) 64.6 (34.0-71.1) % Lymph % (Auto) 17.9 L (19.3-51.7) % [place] % (Auto) 14.1 H (4.7-12.5) % Eos % (Auto) 2.9 (0.7-5.8) Baso % (Auto) 0.5 (0.1-1.2) % Neut # (Auto) 3.58 (1.56-6.13) K/mm3 Lymph # (Auto) 0.99 L (1.18-3.74) K/mm3 [place] # (Auto) 0.78 H (0.24-0.36) K/mm3 Eos # (Auto) 0.16 (0.04-0.36) K/mm3 Baso # (Auto) 0.03 (0.01-0.08) K/mm3 Sodium 138 (136-145) mEq/L Potassium 3.8 (3.5-5.1) mEq/L Chloride 102 (98-107) mEq/L Carbon Dioxide 29 (21-32) mEq/L Anion Gap 10.8 (5-15) BUN 14 (7-18) mg/dL Creatinine 1.1 H (0.55-1.02) mg/dL Est Cr Clr Drug Dosing 30.53 mL/min Estimated GFR (MDRD) 47 (>60) mL/min BUN/Creatinine Ratio 12.7 L (14-18) Glucose 137 H (83-115) mg/dL Calcium 9.2 (8.5-10.1) mg/dL Total Bilirubin 1.3 H (0.2-1.0) mg/dL AST 58 H (15-37) U/L ALT 69 H (14-59) U/L Alkaline Phosphatase 208 H (46-116) U/L C-Reactive Protein 12.4 H* (<1.0) mg/dL Total Protein 6.5 (6.4-8.2) g/dl Albumin 2.5 L (3.4-5.0) g/dl Globulin 4.0 gm/dL Albumin/Globulin Ratio 0.6 L (1-2) - Re-Assessments/Exams Free Text/Narrative Re-Assessment/Exam: Patient is an 89-year-old female presenting to the emergency department with complaints of redness, warmth, and pain to her left knee postop total knee replacement March 19. On exam, there is an area of redness and warmth to the lateral aspect of the knee extending down the mid steiner. Incision looks well approximated, mostly healed, and there is no purulent drainage. There was minimal drainage present on the bandage as well. I have ordered a CBC, CMP, CRP, and a venous duplex ultrasound of the left lower extremity. 03/25/20 12:56 Hematology was significant for hemoglobin slightly low at 10.3, creatinine 1.1, AST 58, ALT 69, alk phos 208, CRP 12.4. WBCs were normal. Ultrasound of lower extremity was negative for DVT but did show a complicated popliteal cyst measuring up to 6.1 cm. Called and spoke with orthopedist, Dr. Devries. He states it is normal to have this type of redness and warmth postop. He did not recommend that we start her on antibiotics at this time. He will see her in the clinic on Thursday as scheduled. We will apply a new Mepilex dressing to the incision and discharge back to [facility] facility. Discharge instructions as documented. Departure - Departure Time of Disposition: 12:54 Disposition: Home, Self-Care 01 Condition: Good Clinical Impression: Encounter for postoperative wound check - Discharge Information *PRESCRIPTION DRUG MONITORING PROGRAM REVIEWED*: No *COPY OF PRESCRIPTION DRUG MONITORING REPORT IN PATIENT RHONDA: No Instructions: Incision Care, Adult, [id number] Referrals: Adam Street MD [Primary Care Provider] - Emeterio Devries MD [Physician] - Forms: ED Department Discharge Additional Instructions: You were seen in the emergency department today for pain, redness, and warmth to your left knee after having surgery 6 days ago. Blood work and ultrasound of the extremity was done and found to be overall normal. We did speak with Dr. Devries, orthopedist and he verbalized that it is normal to have this occur postoperatively. He did not recommend that antibiotics be started this time. He would like to see you in the clinic as scheduled on Thursday. Return to ER should he develop any fever, chills, nausea, vomiting, or any other worsening symptoms of concern. Sepsis Event Note (ED) - Evaluation Sepsis Screening Result: No Definite Risk - Focused Exam Vital Signs: Vital Signs Temp Pulse Resp BP Pulse Ox 03/25/20 10:53 96.9 F 102 H 20 115/67 97
--- NOTE | 2020-03-25 12:39 | US ---
Left lower extremity deep venous ultrasound: Duplex and color Doppler evaluation was obtained of the left common femoral vein, superficial femoral vein, proximal greater saphenous vein, popliteal vein, posterior tibial vein and peroneal vein. Right common femoral vein also evaluated. Complicated popliteal cyst is noted measuring up to 6.1 cm. Normal phasic flow, augmentation and compression is seen. Impression: 1. Complicated popliteal cyst measuring up to 6.1 cm. 2. No evidence of deep venous thrombosis within the left lower extremity or within the right common femoral vein. Diagnostic code #2 This report was dictated in MDT
== END 2020-03-25 13:15 | disposition home or self-care (01) ==
LOC: JD.ED 10:34
DX: Z48.01 Encounter for change or removal of surgical wound dressing (principal); I11.0 Hypertensive heart disease with heart failure; I50.9 Heart failure, unspecified; E78.00 Pure hypercholesterolemia, unspecified; I48.91 Unspecified atrial fibrillation; J44.9 Chronic obstructive pulmonary disease, unspecified; E03.9 Hypothyroidism, unspecified; Z90.49 Acquired absence of other specified parts of digestive tract; Z91.09 Other allergy status, other than to drugs and biological substances; Z79.899 Other long term (current) drug therapy; Z90.710 Acquired absence of both cervix and uterus
CPT/HCPCS: 36415; 80053; 85025; 86140; 93971-26-LT; 93971-LT; 99282; 99284-25

== ENCOUNTER 2020-05-30 10:16 | Emergency (ER) | payer MEDICARE, BC ==
[2020-05-30 10:35] VITALS: BP 131/72; PULSE 76
[2020-05-30] MEDS ORDERED: Lidocaine 2% Jelly 10 ML Urojet MUCMEM ONE (10:41)
--- NOTE | 2020-05-30 10:45 | EDM.PDOC ---
ED HPI GENERAL MEDICAL PROBLEM - General Chief Complaint: Gastrointestinal Problem Stated Complaint: CONSTIPATION Time Seen by Provider: 05/30/20 10:40 Source of Information: Reports: Patient History Limitations: Reports: No Limitations - History of Present Illness INITIAL COMMENTS - FREE TEXT/NARRATIVE: 89-year-old female presents to the ED for evaluation of diffuse lower abdominal cramping pain and associated painful hard bowel movement. Patient states she is last had a good bowel movement 3 days ago. She did have a small very hard and painful to pass stool this morning with associated bleeding on wiping. Patient has persistent rectal pressure discomfort and since has spent a good portion of the morning sitting on the toilet with no relief of the discomfort. She has a history of chronic constipation. She denies any recent use of narcotic medication but has not listed in one of her medications. She takes Dulcolax sporadically. She takes prune juice on a daily basis. No associated nausea or vomiting. She has had multiple previous abdominal surgeries. Denies any fever or chills. No genitourinary complaints other than chronic stress and urgency incontinence. Onset: Other (History of chronic constipation increased lower abdominal pain and rectal pressure today.) Duration: Chronic, Getting Worse Location: Reports: Abdomen (Use lower abdominal cramping pain and rectal pressure discomfort.) Quality: Reports: Ache (Constant rectal pressure discomfort with feeling of need to defecate but unable to do so.) Severity: Moderate Improves with: Reports: None Worsens with: Reports: None Context: Reports: Other (History of chronic constipation. Denies any recent medication changes). Denies: Activity, Exercise, Lifting, Sick Contact, Trauma Associated Symptoms: Reports: Malaise, Shortness of Breath, Other (Mild decreased appetite.). Denies: Confusion, Chest Pain, Cough, cough w sputum, Nausea/Vomiting (Exertion.), Syncope Treatments JACKSPOOLER: Reports: Other (see below) (None.) - Related Data Allergies Allergy/AdvReac Type Severity Reaction Status Date / Time adhesive Allergy Intermediate Hives Verified 05/30/20 10:34 Home Meds: Home Meds Budesonide/Formoterol [Symbicort 160-4.5 MCG] 2 puff INH BID 09/28/15 [History] Cholecalciferol (Vitamin D3) [Vitamin D3] 3,000 units PO DAILY 09/28/15 [History] Levothyroxine [Synthroid] 50 mcg PO DAILY 09/28/15 [History] Apixaban [Eliquis] 5 mg PO BID 12/27/16 [History] Diltiazem [Cardizem CD] 180 mg PO DAILY 02/12/17 [History] Furosemide 20 mg PO DAILY 03/25/18 [History] Spironolactone [Aldactone] 25 mg PO DAILY 03/25/18 [History] Rosuvastatin [Crestor] 10 mg PO DAILY 03/26/18 [History] Ubidecarenone [Co Q-10] 100 mg PO DAILY 03/05/20 [History] Anastrozole [Arimidex] 1 mg PO DAILY 03/18/20 [History] Potassium Chloride 20 meq PO DAILY 03/18/20 [History] Calcium Citrate/Vitamin D3 [Calcium Citrate - Vit D Caplet] 1 tab PO BID 03/19/20 [History] Montelukast [Singulair] 10 mg PO BEDTIME 03/19/20 [History] Acetaminophen [Tylenol] 650 mg PO Q6HR PRN #0 03/22/20 [Rx] Acetaminophen/HYDROcodone [Tridell 325-5 MG] 1 tab PO Q6H PRN #30 tablet 03/22/20 [Rx] Cimetidine [Tagamet] 300 mg PO DAILY #14 tab 03/22/20 [Rx] Docusate Sodium [Colace] 100 mg PO BID #60 cap 03/22/20 [Rx] Sennosides [Senna] 8.6 mg PO BID PRN tablet 03/22/20 [Rx] bisacodyL [Dulcolax] 5 mg PO DAILY PRN tablet 03/22/20 [Rx] polyethylene glycoL 3350 [MiraLAX] 17 gm PO DAILY #1 cont 05/30/20 [Rx] Past Medical History HEENT History: Reports: Cataract, Hard of Hearing, Impaired Vision Other HEENT History: wears glasses, tongue papilloma, mastodynia, arterial occlusion of retina, throat pain Cardiovascular History: Reports: Afib, Blood Clots/VTE/DVT, Heart Failure, High Cholesterol, Hypertension, PVD, Other (See Below) Other Cardiovascular History: secundum atrial septal defect, chronic venous insufficiency, varicose veins, mitral valve regurgitation, paroxysmal atrial fibrillation, dependent edema. She has cardiac delay anticoagulated with Eliquis 5mg po bid. Respiratory History: Reports: COPD, Sleep Apnea, SOB Other Respiratory History: uses CPAP Gastrointestinal History: Reports: GERD, Hemorrhoids, Other (See Below) Other Gastrointestinal History: abdominal pain, reflux Genitourinary History: Reports: Urinary Incontinence Other Genitourinary History: hematuria MANAGER COMMUNITY History: Reports: Other (See Below) Other MANAGER COMMUNITY History: hysterectomy, breast lumpectomy Musculoskeletal History: Reports: Back Pain, Chronic, Osteoarthritis, Osteoporosis Other Musculoskeletal History: spinal stenosis, gait abnormality, myalgia, restless leg syndrome, myalgia, myositis, joint pain, cartilage/bone disorder Neurological History: Reports: Other (See Below) Other Neuro History: cerviclagia, dementia, memory loss, CVA Psychiatric History: Reports: Anxiety, Depression, Other (See Below) Endocrine/Metabolic History: Reports: Hypothyroidism, Obesity/BMI 30+, Osteopenia Other Endocrine/Metabolic History: goiter, thyroid nodule, thyroid neoplasm Hematologic History: Reports: Blood Transfusion(s) Immunologic History: Reports: None Oncologic (Cancer) History: Reports: Breast (Noticed within the last 2 years. She is on Arimidex estrogen radha daily) Other Dermatologic History: rash to hands, contact dermatitis, eczema, seborrheic keratosis, skin neoplasm, pyogenic granuloma of skin, venous stasis ulcer, lipoma - Infectious Disease History Infectious Disease History: Reports: Measles, MRSA Other Infectious Disease History: nares 2016 prior to knee surgery - Past Surgical History Head Surgeries/Procedures: Reports: None HEENT Surgical History: Reports: Cataract Surgery Cardiovascular Surgical History: Reports: Varicose Respiratory Surgical History: Reports: None GI Surgical History: Reports: Appendectomy, Cholecystectomy, Colonoscopy Female Surgical History: Reports: Hysterectomy Other Endocrine Surgeries/Procedures: thyroid lesion Neurological Surgical History: Reports: Lumbar Spine (And has had spinal fixation at L4 and L3 identified on KUB. Degenerative arthritis throughout the spine and pelvis.) Musculoskeletal Surgical History: Reports: Carpal Tunnel, Knee Replacement Other Musculoskeletal Surgeries/Procedures:: back surgery, bilateral carpal tunnel surgery, lumbar laminectomy with spinal stenosis decompression, osteopenia, restless leg syndrome, sciatica, spinal stenosis Oncologic Surgical History: Reports: Biopsy of Breast, Mastectomy Social & Family History - Family History Family Medical History: Noncontributory Endocrine/Metabolic: Reports: Diabetes, Type I Oncologic: Reports: Bladder, Lung, Pancreatic - Caffeine Use Caffeine Use: Reports: Coffee - Living Situation & Occupation Living situation: Reports: , with Spouse Occupation: Retired ED ROS GENERAL - Review of Systems Review Of Systems: See Below Constitutional: Reports: Malaise, Weakness, Fatigue, Decreased Appetite. Denies: Fever, Chills HEENT: Reports: Glasses, Hearing Loss Respiratory: Reports: Shortness of Breath. Denies: Wheezing, Pleuritic Chest Pain, Cough, Sputum, Hemoptysis Cardiovascular: Reports: Blood Pressure Problem, Dyspnea on Exertion (Mild ch ronic dependent edema. Niccoli), Edema, Other (History of paroxysmal atrial fibrillation). Denies: Claudication, Lightheadedness, Orthopnea, Palpitations Endocrine: Reports: Fatigue GI/Abdominal: Reports: Abdominal Pain, Decreased Appetite (See history of present illness.), Hematochezia (Usually associate with a bowel movement. Blood on wiping history of hemorrhoids.). Denies: Nausea, Vomiting : Reports: Frequency, Incontinence Musculoskeletal: Reports: Joint Pain (Third and stress components. Hips knees low back neck and shoulders at times.) Skin: Reports: Bruising (The bruising as she is on Eliquis 5 mg twice daily for paroxysmal atrial fib) Neurological: Reports: No Symptoms Psychiatric: Reports: No Symptoms Hematologic/Lymphatic: Reports: No Symptoms Immunologic: Reports: No Symptoms ED EXAM, GI/ABD - Physical Exam Exam: See Below Exam Limited By: No Limitations General Appearance: Alert, WD/WN, No Apparent Distress, Other (Slightly pallid in color.) Eyes: Bilateral: Normal Appearance (No scleral icterus.) Throat/Mouth: Normal Inspection, Normal Oropharynx. No: Normal Teeth Head: Atraumatic, Normocephalic Neck: Normal Inspection, Limited Range of Motion, Tender Lateral. No: Full Range of Motion, Carotid Bruit, Lymphadenopathy (L), Lymphadenopathy (R), Thyromegaly Respiratory/Chest: Respiratory Distress (Mild tachypnea 20/min. O2 sats 95% room air), Decreased Breath Sounds (Creased breath sounds the lower 25% lung joseph bilaterally.). No: Rales, Rhonchi, Wheezing Cardiovascular: No Gallop, No JVD, No Rub, Systolic Murmur (Patient has a grade 2 out of 6 pansystolic ejection murmur at left lower sternal border). No: Normal Peripheral Pulses, No Edema GI/Abdominal Exam: Soft, Non-Tender, No Organomegaly, No Mass, Abnormal Bowel Sounds (Bowel sounds are hyperactive throughout her quadrants. Multiple surgical scars. Mild distention and tympany to percussion.), Other (Mildly obese.) Back Exam: Decreased Range of Motion. No: CVA Tenderness (L), CVA Tenderness (R), Muscle Spasm Extremities: Pedal Edema (1-2+ pitting edema lower extremities distal tib-fib and ankle), Increased Warmth (Both knees on exam suggesting osteoarthritic change). No: Normal Range of Motion Neurological: Alert, Oriented, CN II-XII Intact, Normal Cognition, Other (Moderately hard of hearing made worse by wearing a mask.) Psychiatric: Normal Affect, Normal Mood Skin Exam: Warm, Dry, Intact, Pallor (Mild pallor.) Course - Vital Signs Last Recorded V/S: Last Vital Signs Temp 36.7 C 05/30/20 10:28 Pulse 76 05/30/20 10:28 Resp 20 05/30/20 10:28 BP 131/72 05/30/20 10:28 Pulse Ox 95 05/30/20 10:28 - Orders/Labs/Meds Meds: Medications Discontinued Medications Generic Name Dose Route Start Last Admin Trade Name Freq PRN Reason Stop Dose Admin Influenza Virus Vaccine 240 mcg 05/30/20 11:00 05/30/20 11:20 Fluzone High-Dose Quad 2020- IM 05/30/20 11:01 240 mcg .ONCE ONE Administration Lidocaine HCl 10 ml 05/30/20 10:41 05/30/20 11:22 Xylocaine 2% Jelly MUCMEM 05/30/20 10:42 10 ml ONETIME ONE Administration - Radiology Interpretation Free Text/Narrative:: 89-year-old female presents to the ED for evaluation of diffuse lower abdominal cramping pain and associated constipation. She has an issue with chronic constipation and drinks prune juice on a daily basis and uses Dulcolax and sennosides intermittently. Her last good bowel movement was 3 days ago. He chief complaint is continuous rectal pressure discomfort with minimal bowel movement this morning. She has been sitting on the toilet half of the morning with no good results. She had a small hard stool once earlier this morning so she was some blood with wiping. Of note she is on Eliquis 5 mg twice daily for paroxysmal atrial fib. She is on multiple medications that could be causing or aggravating her constipation such as Cardiazem and Arimidex and diuretics. History of hemorrhoids for many years. Examination reveals very active bowel sounds in all 4 quadrants of the abdomen with no localized tenderness or peritoneal signs. Plan x-ray of the abdomen will be performed to see how extensive her constipation is. Plan will then be to anesthetize the rectal vault with topical lidocaine gel. Will likely require an enema either Fleet or soapsuds. - Re-Assessments/Exams Free Text/Narrative Re-Assessment/Exam: 05/30/20 11:18 KUB has been completed does reveal fairly extensive constipation particularly throughout the descending colon and rectal vault. Previous L-spine fixation with rods and pedicle screws at l-3 and L-4 levels appreciated. We will proceed with lidocaine gel to the anus and rectal vault and soapsuds enema with hydrogen peroxide. Patient advised of the findings of the x-ray. 05/30/20 12:01 and did withhold the soapsuds enema for greater than 10 to 15 minutes and did have fairly good results. Still feels some rectal pressure discomfort and there were will repeat enema in the form of a Fleet enema with mineral oil. 05/30/20 12:42 Patient had good results after the Fleet enema with mineral oil and no longer has any rectal pressure discomfort. She is feeling much improved. She will be discharged home to take MiraLAX powder 10 g or 1 scoop every day to prevent similar occurrence. Most of her constipation issues is secondary to medication use as listed above. Departure - Departure Time of Disposition: 12:43 Disposition: Home, Self-Care 01 Condition: Fair Clinical Impression: Constipation by delayed colonic transit Abdominal pain Qualifiers: Abdominal location: lower abdomen, unspecified Qualified Code(s): R10.30 - Lower abdominal pain, unspecified Constipation Qualifiers: Qualified Code(s): K59.03 - Drug induced constipation - Discharge Information *PRESCRIPTION DRUG MONITORING PROGRAM REVIEWED*: Not Applicable *COPY OF PRESCRIPTION DRUG MONITORING REPORT IN PATIENT RHONDA: Not Applicable Prescriptions: polyethylene glycoL 3350 [MiraLAX] 17 gm PO DAILY #1 cont Instructions: Constipation, Adult, [id number], Abdominal Pain, Adult, [id number] Referrals: Adam Street MD [Primary Care Provider] - Forms: ED Department Discharge Additional Instructions: Evaluation in the emergency room today in regards to diffuse rectal pressure discomfort with feeling of need to have a bowel wound but unable to do so. History of recurrent problems with constipation. X-ray of the abdomen confirms significant stool retention throughout most of the colon worse on the left side and rectal vault. You were therefore treated with lidocaine jelly on the hemorrhoids and anal tissues to relieve discomfort. You were then given a soapsuds enema followed by a mineral oil Fleet enema with good results. Several of your medications unfortunately cause constipation as a side effect. It is suggested that you purchase a container of MiraLAX powder at any pharmacy and take 17 g or 1 scoop of this medication daily to prevent constipation from occurring. Follow-up with personal care physician if any further problems occur. Sepsis Event Note (ED) - Evaluation Sepsis Screening Result: No Definite Risk
[2020-05-30] MEDS ORDERED: FLU Vacc QV2020-21(65YR UP)/PF 240 MCG/0.7 ML Syringe IM ONE (11:00)
--- NOTE | 2020-05-31 16:14 | CR ---
PROCEDURE INFORMATION: Exam: XR Abdomen, 1 View Exam date and time: 05/30/2020 11:09 AM Age: 89 years old Clinical indication: Constipation TECHNIQUE: Imaging protocol: XR of the abdomen. Views: Frontal supine view of the abdomen. 1 View. COMPARISON: DX Abdomen 2V AP Flat Upright 03/21/2019 2:51 PM FINDINGS: Gastrointestinal tract: Large amount of stool in the colon. No bowel dilation. Bones/joints: Posterior kay and pedicle screw fixation of L4 and L3. Degenerate arthritis in the spine and pelvis. The bones are demineralized. Soft tissues: Surgical clips in right axilla. Vascular calcifications. IMPRESSION: Large amount of stool in the colon. Thank you for allowing us to participate in the care of your patient. Dictated and Authenticated by: Bella Piña MD 05/30/2020 12:25 PM Central Time ([place] & [place]) YOSI
== END 2020-05-30 13:30 | disposition home or self-care (01) ==
LOC: JD.ED 10:16
DX: K59.01 Slow transit constipation (principal); K59.03 Drug induced constipation; Z91.048 Other nonmedicinal substance allergy status; Z79.01 Long term (current) use of anticoagulants; Z79.899 Other long term (current) drug therapy; I48.91 Unspecified atrial fibrillation; E78.00 Pure hypercholesterolemia, unspecified; I11.0 Hypertensive heart disease with heart failure; I50.9 Heart failure, unspecified; J44.9 Chronic obstructive pulmonary disease, unspecified; K21.9 Gastro-esophageal reflux disease without esophagitis; M19.90 Unspecified osteoarthritis, unspecified site; F03.90 Unspecified dementia, unspecified severity, without behavioral disturbance, psychotic disturbance, mood disturbance, and anxiety; F41.9 Anxiety disorder, unspecified; F32.9 Major depressive disorder, single episode, unspecified; E03.9 Hypothyroidism, unspecified; E66.9 Obesity, unspecified; Z86.718 Personal history of other venous thrombosis and embolism; Z86.73 Personal history of transient ischemic attack (TIA), and cerebral infarction without residual deficits; T46.1X5A Adverse effect of calcium-channel blockers, initial encounter; T45.1X5A Adverse effect of antineoplastic and immunosuppressive drugs, initial encounter
CPT/HCPCS: 74018; 90662; 99283; G0008

== ENCOUNTER 2021-09-12 13:28 | Emergency (ER) | payer MEDICARE, BC ==
[2021-09-12 14:03] VITALS: BP 121/58; PULSE 60
== END 2021-09-12 18:05 | disposition home or self-care (01) ==
LOC: JD.ED 13:28
DX: L03.113 Cellulitis of right upper limb (principal); I11.0 Hypertensive heart disease with heart failure; I50.9 Heart failure, unspecified; E78.00 Pure hypercholesterolemia, unspecified; K21.9 Gastro-esophageal reflux disease without esophagitis; E66.9 Obesity, unspecified; J44.9 Chronic obstructive pulmonary disease, unspecified; Z68.37 Body mass index [BMI] 37.0-37.9, adult; Z91.048 Other nonmedicinal substance allergy status; Z79.899 Other long term (current) drug therapy
CPT/HCPCS: 36415; 80053; 85007; 85027; 85652; 86140; 93971-26-LT; 93971-LT; 99284

== ENCOUNTER 2021-10-07 06:19 | Inpatient (IN) | payer MEDICARE, BC ==
[2021-10-07] MEDS ORDERED: Diltiazem 50 MG/10 ML SDV IVPUSH ONE (07:11)
[2021-10-07] MEDS: Diltiazem 100 MG in Sodium Chloride 0.9% 100 ML IV SCH ×3 (07:32→21:03)
[2021-10-07] MEDS: Sodium Chloride 0.9% 1,000 ML IV SCH ×2 (07:32→15:55)
[2021-10-07] MEDS: Sodium Chloride 0.9% 10 ML Syringe FLUSH PRN (07:36)
[2021-10-07] MEDS ORDERED: HYDROmorphone 0.5 MG/0.5 ML Syringe IVPUSH ONE (07:49)
[2021-10-07] MEDS ORDERED: Vancomycin 2 GM in Sodium Chloride 0.9% 500 ML IV ONE (09:30)
[2021-10-07] MEDS ORDERED: Albuterol/Ipratropium 3.0-0.5 MG/3 ML Neb Soln NEB PRN (12:57)
[2021-10-07] MEDS ORDERED: PRAMOXINE HCL TOP SCH (15:00)
[2021-10-07] MEDS ORDERED: CALAMINE TOP SCH (15:00)
[2021-10-07] MEDS ORDERED: diphenhydrAMINE 50 MG/ML SDV IVPUSH ONE (17:29)
[2021-10-07] MEDS: Montelukast 10 MG Tab PO SCH (20:49)
[2021-10-07] MEDS: Rosuvastatin 10 MG Tab PO SCH (20:49)
[2021-10-07] MEDS: Apixaban 2.5 MG Tab PO SCH (20:49)
[2021-10-08] MEDS: Acetaminophen 325 MG Tab PO PRN ×2 (00:05→16:04)
[2021-10-08] MEDS ORDERED: Sodium Chloride 0.9% 500 ML IV ONE (00:56)
[2021-10-08] MEDS: Sodium Chloride 0.9% 1,000 ML IV SCH ×2 (04:54)
[2021-10-08] MEDS: Levothyroxine 50 MCG Tab PO SCH (05:01)
[2021-10-08] MEDS ORDERED: Metoprolol Tartrate 50 MG Tab PO ONE (07:30)
[2021-10-08] MEDS ORDERED: Potassium Chloride 20 MEQ Tab.ER PO ONE (09:00)
[2021-10-08] MEDS ORDERED: Diltiazem 180 MG Cap.CD PO SCH (09:00)
[2021-10-08] MEDS ORDERED: predniSONE 20 MG Tab PO SCH ×2 (09:00)
[2021-10-08] MEDS ORDERED: Magnesium Sulfate/Water 2 GM in Premix Bag 1 BAG IV ONE (09:00)
[2021-10-08] MEDS: Anastrozole 1 MG Tab PO SCH (09:23)
[2021-10-08] MEDS: Rosuvastatin 10 MG Tab PO SCH ×2 (09:27→20:16)
[2021-10-08] MEDS: Apixaban 2.5 MG Tab PO SCH ×2 (09:28→20:16)
[2021-10-08] MEDS: Furosemide 20 MG Tab PO SCH (09:29)
[2021-10-08] MEDS: Atenolol 50 MG Tab PO SCH (09:30)
[2021-10-08] MEDS: Doxycycline 100 MG Cap PO SCH (09:31)
[2021-10-08] MEDS: oxyCODONE 5 MG Tab PO PRN (19:01)
[2021-10-08] MEDS: Montelukast 10 MG Tab PO SCH (20:16)
[2021-10-08] MEDS: hydrOXYzine HCl 25 MG Tab PO PRN (20:16)
[2021-10-09] MEDS: Levothyroxine 50 MCG Tab PO SCH (06:43)
[2021-10-09] MEDS: oxyCODONE 5 MG Tab PO PRN (06:53)
[2021-10-09] MEDS: Furosemide 20 MG Tab PO SCH (09:26)
[2021-10-09] MEDS: Doxycycline 100 MG Cap PO SCH (09:26)
[2021-10-09] MEDS: predniSONE 10 MG Tab PO SCH (09:26)
[2021-10-09] MEDS: Atenolol 50 MG Tab PO SCH (09:26)
[2021-10-09] MEDS: Diltiazem 240 MG Cap.ER PO SCH (09:26)
[2021-10-09] MEDS: Anastrozole 1 MG Tab PO SCH (09:27)
[2021-10-09] MEDS: Rosuvastatin 10 MG Tab PO SCH ×2 (09:27→21:01)
[2021-10-09] MEDS: Apixaban 2.5 MG Tab PO SCH ×2 (09:27→21:01)
[2021-10-09] MEDS: hydrOXYzine HCl 25 MG Tab PO PRN (13:24)
[2021-10-09] MEDS: Montelukast 10 MG Tab PO SCH (21:01)
[2021-10-10] MEDS: oxyCODONE 5 MG Tab PO PRN ×2 (05:37→13:30)
[2021-10-10] MEDS: Levothyroxine 50 MCG Tab PO SCH (05:37)
[2021-10-10] MEDS: Nystatin Susp 100,000 Unit/ML 5 ML UD Cup PO SCH ×3 (08:12→20:22)
[2021-10-10] MEDS: predniSONE 10 MG Tab PO SCH (08:14)
[2021-10-10] MEDS: Anastrozole 1 MG Tab PO SCH (08:14)
[2021-10-10] MEDS: Apixaban 2.5 MG Tab PO SCH ×2 (08:14→20:22)
[2021-10-10] MEDS: Furosemide 20 MG Tab PO SCH (08:14)
[2021-10-10] MEDS: Diltiazem 240 MG Cap.ER PO SCH (08:14)
[2021-10-10] MEDS: Doxycycline 100 MG Cap PO SCH (08:14)
[2021-10-10] MEDS: Atenolol 50 MG Tab PO SCH (08:14)
[2021-10-10] MEDS: Rosuvastatin 10 MG Tab PO SCH ×2 (08:14→20:22)
[2021-10-10] MEDS ORDERED: Potassium Chloride 20 MEQ Tab.ER PO ONE (08:40)
[2021-10-10] MEDS ORDERED: Nystatin Susp 100,000 Unit/ML 5 ML Oral Syringe PO SCH (09:00)
[2021-10-10] MEDS: Montelukast 10 MG Tab PO SCH (20:22)
[2021-10-10] MEDS: hydrOXYzine HCl 25 MG Tab PO PRN (20:22)
[2021-10-10] MEDS: Sodium Chloride 0.9% 10 ML Syringe FLUSH PRN (20:30)
[2021-10-11] MEDS: oxyCODONE 5 MG Tab PO PRN ×2 (04:11→20:24)
[2021-10-11] MEDS: Levothyroxine 50 MCG Tab PO SCH (05:51)
[2021-10-11] MEDS: Atenolol 50 MG Tab PO SCH (07:59)
[2021-10-11] MEDS: Apixaban 2.5 MG Tab PO SCH ×2 (07:59→20:13)
[2021-10-11] MEDS: Cefdinir 300 MG Cap PO SCH ×2 (08:00→20:14)
[2021-10-11] MEDS: Rosuvastatin 10 MG Tab PO SCH ×2 (08:00→20:14)
[2021-10-11] MEDS: Diltiazem 180 MG Cap.CD PO SCH (08:00)
[2021-10-11] MEDS: Nystatin Susp 100,000 Unit/ML 5 ML UD Cup PO SCH ×3 (08:00→20:13)
[2021-10-11] MEDS: Furosemide 20 MG Tab PO SCH (08:00)
[2021-10-11] MEDS: predniSONE 10 MG Tab PO SCH (08:00)
[2021-10-11] MEDS: Anastrozole 1 MG Tab PO SCH (08:04)
[2021-10-11] MEDS ORDERED: Magnesium Sulfate/Water 50 ML ONE (08:53)
[2021-10-11] MEDS ORDERED: Magnesium Sulfate/Water 2 GM in Premix Bag 1 BAG IV ONE (09:00)
[2021-10-11] MEDS ORDERED: Potassium Chloride 20 MEQ Tab.ER PO ONE (09:00)
[2021-10-11] MEDS: Montelukast 10 MG Tab PO SCH (20:13)
[2021-10-11] MEDS: Sodium Chloride 0.9% 10 ML Syringe FLUSH PRN (20:14)
[2021-10-11] MEDS: hydrOXYzine HCl 25 MG Tab PO PRN (20:14)
[2021-10-12] MEDS: oxyCODONE 5 MG Tab PO PRN ×2 (03:17→11:00)
[2021-10-12] MEDS: Levothyroxine 50 MCG Tab PO SCH (06:27)
[2021-10-12] MEDS: Diltiazem 180 MG Cap.CD PO SCH (08:07)
[2021-10-12] MEDS: predniSONE 10 MG Tab PO SCH (08:08)
[2021-10-12] MEDS: Furosemide 20 MG Tab PO SCH (08:08)
[2021-10-12] MEDS: Cefdinir 300 MG Cap PO SCH ×2 (08:08→20:50)
[2021-10-12] MEDS: Atenolol 50 MG Tab PO SCH (08:08)
[2021-10-12] MEDS: Nystatin Susp 100,000 Unit/ML 5 ML UD Cup PO SCH ×3 (08:09→20:49)
[2021-10-12] MEDS: Apixaban 2.5 MG Tab PO SCH ×2 (08:10→20:50)
[2021-10-12] MEDS: Rosuvastatin 10 MG Tab PO SCH ×2 (08:10→20:50)
[2021-10-12] MEDS: Anastrozole 1 MG Tab PO SCH (08:10)
[2021-10-12] MEDS: Acetaminophen 325 MG Tab PO PRN ×2 (08:12→14:41)
[2021-10-12] MEDS: hydrOXYzine HCl 25 MG Tab PO PRN ×3 (08:13→20:50)
[2021-10-12] MEDS: Montelukast 10 MG Tab PO SCH (20:50)
[2021-10-13] MEDS: oxyCODONE 5 MG Tab PO PRN ×2 (00:30→08:33)
[2021-10-13] MEDS: Levothyroxine 50 MCG Tab PO SCH (06:52)
[2021-10-13] MEDS: Diltiazem 180 MG Cap.CD PO SCH (08:16)
[2021-10-13] MEDS: Cefdinir 300 MG Cap PO SCH ×2 (08:17→20:45)
[2021-10-13] MEDS: predniSONE 10 MG Tab PO SCH (08:17)
[2021-10-13] MEDS: Furosemide 20 MG Tab PO SCH (08:17)
[2021-10-13] MEDS: Rosuvastatin 10 MG Tab PO SCH ×2 (08:18→20:45)
[2021-10-13] MEDS: Apixaban 2.5 MG Tab PO SCH ×2 (08:18→20:45)
[2021-10-13] MEDS: hydrOXYzine HCl 25 MG Tab PO PRN ×3 (08:19→20:45)
[2021-10-13] MEDS: Atenolol 50 MG Tab PO SCH (08:19)
[2021-10-13] MEDS: Nystatin Susp 100,000 Unit/ML 5 ML UD Cup PO SCH ×3 (08:21→20:45)
[2021-10-13] MEDS: Anastrozole 1 MG Tab PO SCH (08:21)
[2021-10-13] MEDS: predniSONE 20 MG Tab PO SCH (09:17)
[2021-10-13] MEDS: Gabapentin 300 MG Cap PO SCH ×3 (09:17→20:45)
[2021-10-13] MEDS: Metoprolol Tartrate 50 MG Tab PO SCH ×2 (09:17→20:45)
[2021-10-13] MEDS: Acetaminophen 325 MG Tab PO PRN (12:24)
[2021-10-13] MEDS: Montelukast 10 MG Tab PO SCH (20:45)
[2021-10-13] MEDS: Sodium Chloride 0.9% 10 ML Syringe FLUSH PRN (20:46)
[2021-10-14] MEDS: Levothyroxine 50 MCG Tab PO SCH (08:05)
[2021-10-14] MEDS: Apixaban 2.5 MG Tab PO SCH (08:33)
[2021-10-14] MEDS: predniSONE 20 MG Tab PO SCH (08:33)
[2021-10-14] MEDS: Rosuvastatin 10 MG Tab PO SCH (08:33)
[2021-10-14] MEDS: Furosemide 20 MG Tab PO SCH (08:33)
[2021-10-14] MEDS: Nystatin Susp 100,000 Unit/ML 5 ML UD Cup PO SCH ×2 (08:33→14:18)
[2021-10-14] MEDS: Diltiazem 180 MG Cap.CD PO SCH (08:33)
[2021-10-14] MEDS: Metoprolol Tartrate 50 MG Tab PO SCH (08:33)
[2021-10-14] MEDS: Cefdinir 300 MG Cap PO SCH (08:33)
[2021-10-14] MEDS: Gabapentin 300 MG Cap PO SCH ×2 (08:33→14:18)
[2021-10-14 08:34] VITALS: PULSE 108
[2021-10-14] MEDS: Anastrozole 1 MG Tab PO SCH (08:36)
[2021-10-14] MEDS: oxyCODONE 5 MG Tab PO PRN (09:28)
[2021-10-14 14:38] VITALS: BP 103/69
== END 2021-10-14 14:40 | DRG 603 ==
LOC: JD.ED 06:19 → JD.ICU 11:38
PROVIDERS: ADMIT Internal Medicine; ATTEND Internal Medicine
DX: L03.119 Cellulitis of unspecified part of limb (principal); I48.91 Unspecified atrial fibrillation; L03.115 Cellulitis of right lower limb; E46 Unspecified protein-calorie malnutrition; J44.1 Chronic obstructive pulmonary disease with (acute) exacerbation; D69.0 Allergic purpura; I73.9 Peripheral vascular disease, unspecified; J44.9 Chronic obstructive pulmonary disease, unspecified; L03.116 Cellulitis of left lower limb; M19.90 Unspecified osteoarthritis, unspecified site; E86.0 Dehydration; E87.6 Hypokalemia; I50.9 Heart failure, unspecified; E06.3 Autoimmune thyroiditis; I48.0 Paroxysmal atrial fibrillation; H54.7 Unspecified visual loss; H91.90 Unspecified hearing loss, unspecified ear; E78.00 Pure hypercholesterolemia, unspecified; G47.30 Sleep apnea, unspecified; Z86.718 Personal history of other venous thrombosis and embolism; K21.9 Gastro-esophageal reflux disease without esophagitis; Z79.890 Hormone replacement therapy; Z79.51 Long term (current) use of inhaled steroids; R32 Unspecified urinary incontinence; I11.0 Hypertensive heart disease with heart failure; I87.2 Venous insufficiency (chronic) (peripheral); I34.0 Nonrheumatic mitral (valve) insufficiency; Z20.822 Contact with and (suspected) exposure to COVID-19; M54.9 Dorsalgia, unspecified; G89.29 Other chronic pain; M81.0 Age-related osteoporosis without current pathological fracture; G25.81 Restless legs syndrome; M79.10 Myalgia, unspecified site; F03.90 Unspecified dementia, unspecified severity, without behavioral disturbance, psychotic disturbance, mood disturbance, and anxiety; F41.9 Anxiety disorder, unspecified; F32.A Depression, unspecified; E03.9 Hypothyroidism, unspecified; E66.9 Obesity, unspecified; M85.80 Other specified disorders of bone density and structure, unspecified site; Z86.16 Personal history of COVID-19; Z79.01 Long term (current) use of anticoagulants; Z91.09 Other allergy status, other than to drugs and biological substances; Z79.82 Long term (current) use of aspirin; Z79.899 Other long term (current) drug therapy; Z79.52 Long term (current) use of systemic steroids; Z90.710 Acquired absence of both cervix and uterus; Z86.73 Personal history of transient ischemic attack (TIA), and cerebral infarction without residual deficits; Z86.19 Personal history of other infectious and parasitic diseases; Z90.49 Acquired absence of other specified parts of digestive tract; Z98.49 Cataract extraction status, unspecified eye; Z85.3 Personal history of malignant neoplasm of breast
CPT/HCPCS: 36415; 71045; 80053; 83605; 84443; 84484; 85025; 85610; 85730; 86140; 87040 ×2; 87070; 87075; 87077 ×2; 87186 ×2; 87205; 93005; 96365; 96366; 96375; 99285; J1170; J3370; J3490 ×2; J7030; J7040; U0002; 29580-GP; 80048; 80202; 83735; 93010; 94660; 97110-GP; 97161-GP; 97530-GP; 97597-GP; 97598-GP; 99223; A9270-GY; J1200; J3475; J7050; J7512

== ENCOUNTER 2021-10-23 11:26 | Inpatient (IN) | payer MEDICARE, BC ==
[2021-10-23] MEDS ORDERED: Sodium Chloride 0.9% 10 ML Syringe FLUSH PRN (11:40)
[2021-10-23] MEDS ORDERED: Sodium Chloride 0.9% 500 ML IV STA (11:50)
[2021-10-23] MEDS: Sodium Chloride 0.9% 1,000 ML IV SCH ×3 (12:57→16:54)
[2021-10-23] MEDS ORDERED: cefTRIAXone 2 GM in Sodium Chloride 0.9% 100 ML IV ONE (13:10)
[2021-10-23] MEDS ORDERED: Sodium Chloride 0.9% 1,000 ML IV STA ×2 (13:26→13:28)
[2021-10-23] MEDS ORDERED: Acetaminophen 325 MG Tab PO ONE (13:51)
[2021-10-23] MEDS ORDERED: Vancomycin 1 GM, Vancomycin 500 MG in Sodium Chloride 0.9% 500 ML IV ONE (14:30)
[2021-10-23] MEDS ORDERED: hydrOXYzine HCl 25 MG Tab PO PRN (14:59)
[2021-10-23] MEDS ORDERED: Sodium Chloride 0.9% 1,000 ML IV SCH (15:45)
[2021-10-23] MEDS: Gabapentin 300 MG Cap PO SCH ×2 (16:42→20:16)
[2021-10-23] MEDS: Metoprolol Tartrate 50 MG Tab PO SCH (17:03)
[2021-10-23] MEDS ORDERED: Piperacillin/Tazobactam 4.5 GM in Sodium Chloride 0.9% 100 ML IV ONE (18:00)
[2021-10-23] MEDS: oxyCODONE 5 MG Tab PO PRN (19:13)
[2021-10-23] MEDS: Lactated Ringers 1,000 ML IV SCH (19:14)
[2021-10-23] MEDS: Montelukast 10 MG Tab PO SCH (20:16)
[2021-10-23] MEDS: Apixaban 2.5 MG Tab PO SCH (20:17)
[2021-10-24] MEDS: Piperacillin/Tazobactam 4.5 GM in Sodium Chloride 0.9% 100 ML IV SCH ×3 (01:40→17:33)
[2021-10-24] MEDS: oxyCODONE 5 MG Tab PO PRN (05:48)
[2021-10-24] MEDS: Levothyroxine 50 MCG Tab PO SCH (07:37)
[2021-10-24] MEDS: Metoprolol Tartrate 50 MG Tab PO SCH ×2 (07:45→17:33)
[2021-10-24] MEDS: Tiotropium Bromide 4 GM Inhalation Spray (2.5mcg/1 dose; 10 doses) INH SCH (08:47)
[2021-10-24] MEDS ORDERED: Non-Formulary Medication 1 Each (Budesonide/Formoterol 6 GM Inhaler) INH SCH (09:00)
[2021-10-24] MEDS ORDERED: predniSONE 20 MG Tab PO SCH (09:00)
[2021-10-24] MEDS ORDERED: Furosemide 20 MG Tab PO SCH (09:00)
[2021-10-24] MEDS ORDERED: Tiotropium BR/Olodaterol HCL 4 GM Inhalation Spray 2.5mcg/1 dose; 10 doses INH SCH (09:00)
[2021-10-24] MEDS: Saccharomyces Boulardii (Probiotic) 250 MG Cap PO SCH (09:56)
[2021-10-24] MEDS: Apixaban 2.5 MG Tab PO SCH ×2 (09:56→20:14)
[2021-10-24] MEDS: Gabapentin 300 MG Cap PO SCH ×3 (09:56→20:14)
[2021-10-24] MEDS: Diltiazem 180 MG Cap.CD PO SCH (09:56)
[2021-10-24] MEDS: Rosuvastatin 10 MG Tab PO SCH (09:57)
[2021-10-24] MEDS: Furosemide 20 MG/2 ML VIAL IVPUSH SCH (09:57)
[2021-10-24] MEDS: Anastrozole 1 MG Tab PO SCH (09:57)
[2021-10-24] MEDS ORDERED: Potassium Chloride 20 MEQ Tab.ER PO ONE (11:18)
[2021-10-24] MEDS: Losartan 50 MG Tab PO SCH (12:28)
[2021-10-24 14:24] LABS: HEMOGLOBIN A1C 7.3 %
[2021-10-24] MEDS: Insulin Lispro 100 Unit/ML 3 ML KwikPen SUBCUT SCH ×2 (18:23→21:00)
[2021-10-24] MEDS ORDERED: Metoprolol Tartrate 25 MG Tab PO ONE (19:51)
[2021-10-24] MEDS: Montelukast 10 MG Tab PO SCH (20:14)
[2021-10-24] MEDS: Lactated Ringers 1,000 ML IV SCH (23:01)
[2021-10-25] MEDS: oxyCODONE 5 MG Tab PO PRN (01:37)
[2021-10-25] MEDS: Piperacillin/Tazobactam 4.5 GM in Sodium Chloride 0.9% 100 ML IV SCH ×2 (01:38→10:08)
[2021-10-25] MEDS: Metoprolol Tartrate 50 MG Tab PO SCH ×2 (04:49→16:12)
[2021-10-25] MEDS: Levothyroxine 50 MCG Tab PO SCH ×2 (04:49→06:16)
[2021-10-25] MEDS: Insulin Lispro 100 Unit/ML 3 ML KwikPen SUBCUT SCH ×4 (07:44→20:26)
[2021-10-25] MEDS: Tiotropium Bromide 4 GM Inhalation Spray (2.5mcg/1 dose; 10 doses) INH SCH (08:26)
[2021-10-25] MEDS ORDERED: predniSONE 5 MG Tab PO SCH (09:00)
[2021-10-25] MEDS: Gabapentin 300 MG Cap PO SCH ×3 (09:41→20:28)
[2021-10-25] MEDS: predniSONE 20 MG Tab PO SCH (09:44)
[2021-10-25] MEDS: Rosuvastatin 10 MG Tab PO SCH (09:45)
[2021-10-25] MEDS: Apixaban 2.5 MG Tab PO SCH ×2 (09:46→20:29)
[2021-10-25] MEDS: Saccharomyces Boulardii (Probiotic) 250 MG Cap PO SCH (09:46)
[2021-10-25] MEDS: Diltiazem 180 MG Cap.CD PO SCH (10:04)
[2021-10-25] MEDS: Furosemide 20 MG/2 ML VIAL IVPUSH SCH (10:04)
[2021-10-25] MEDS: Losartan 50 MG Tab PO SCH (10:04)
[2021-10-25] MEDS: Anastrozole 1 MG Tab PO SCH (10:38)
[2021-10-25] MEDS ORDERED: Digoxin 250 MCG Tab PO ONE ×4 (11:00→23:08)
[2021-10-25] MEDS: Cephalexin 250 MG Cap PO SCH ×3 (11:12→23:26)
[2021-10-25] MEDS ORDERED: Metoprolol Tartrate 5 MG/5 ML SDV IVPUSH ONE (17:15)
[2021-10-25] MEDS: Montelukast 10 MG Tab PO SCH (20:30)
[2021-10-25] MEDS ORDERED: Docusate Sodium 100 MG Cap PO SCH (21:00)
[2021-10-25] MEDS ORDERED: Metoprolol Tartrate 25 MG Tab PO ONE (21:00)
[2021-10-26] MEDS: Cephalexin 250 MG Cap PO SCH ×3 (06:08→18:04)
[2021-10-26] MEDS: Metoprolol Tartrate 50 MG Tab PO SCH ×2 (06:08→17:31)
[2021-10-26] MEDS: Levothyroxine 50 MCG Tab PO SCH (06:08)
[2021-10-26] MEDS: Insulin Lispro 100 Unit/ML 3 ML KwikPen SUBCUT SCH ×4 (06:59→20:53)
[2021-10-26] MEDS: Tiotropium Bromide 4 GM Inhalation Spray (2.5mcg/1 dose; 10 doses) INH SCH (08:00)
[2021-10-26] MEDS: Apixaban 2.5 MG Tab PO SCH ×2 (08:07→20:44)
[2021-10-26] MEDS: Diltiazem 180 MG Cap.CD PO SCH (08:08)
[2021-10-26] MEDS: Losartan 25 MG Tab PO SCH (08:08)
[2021-10-26] MEDS: Rosuvastatin 10 MG Tab PO SCH (08:08)
[2021-10-26] MEDS: Saccharomyces Boulardii (Probiotic) 250 MG Cap PO SCH (08:09)
[2021-10-26] MEDS: predniSONE 20 MG Tab PO SCH (08:09)
[2021-10-26] MEDS: Gabapentin 300 MG Cap PO SCH ×3 (08:10→20:44)
[2021-10-26] MEDS: metFORMIN 500 MG Tab PO SCH ×2 (08:10→17:31)
[2021-10-26] MEDS: Furosemide 20 MG/2 ML VIAL IVPUSH SCH (08:11)
[2021-10-26] MEDS: Anastrozole 1 MG Tab PO SCH (09:41)
[2021-10-26] MEDS: Montelukast 10 MG Tab PO SCH (20:44)
[2021-10-27] MEDS: Cephalexin 250 MG Cap PO SCH ×4 (00:23→17:28)
[2021-10-27] MEDS: Levothyroxine 50 MCG Tab PO SCH (05:58)
[2021-10-27] MEDS: Metoprolol Tartrate 50 MG Tab PO SCH ×2 (05:58→17:27)
[2021-10-27] MEDS: Acetaminophen 325 MG Tab PO PRN ×2 (05:58→15:39)
[2021-10-27] MEDS: Insulin Lispro 100 Unit/ML 3 ML KwikPen SUBCUT SCH ×4 (06:49→20:41)
[2021-10-27] MEDS: Tiotropium Bromide 4 GM Inhalation Spray (2.5mcg/1 dose; 10 doses) INH SCH (08:12)
[2021-10-27] MEDS: Rosuvastatin 10 MG Tab PO SCH (08:21)
[2021-10-27] MEDS: Gabapentin 300 MG Cap PO SCH ×3 (08:22→20:41)
[2021-10-27] MEDS: predniSONE 20 MG Tab PO SCH (08:22)
[2021-10-27] MEDS: metFORMIN 500 MG Tab PO SCH ×2 (08:23→17:28)
[2021-10-27] MEDS: Losartan 25 MG Tab PO SCH (08:24)
[2021-10-27] MEDS: Apixaban 2.5 MG Tab PO SCH ×2 (08:24→20:41)
[2021-10-27] MEDS: Saccharomyces Boulardii (Probiotic) 250 MG Cap PO SCH (08:24)
[2021-10-27] MEDS: Diltiazem 180 MG Cap.CD PO SCH (08:25)
[2021-10-27] MEDS: Anastrozole 1 MG Tab PO SCH (08:26)
[2021-10-27] MEDS: Furosemide 20 MG/2 ML VIAL IVPUSH SCH (08:27)
[2021-10-27] MEDS: Digoxin 125 MCG Tab PO SCH (11:50)
[2021-10-27] MEDS: Montelukast 10 MG Tab PO SCH (20:41)
[2021-10-28] MEDS: Cephalexin 250 MG Cap PO SCH ×3 (00:53→12:25)
[2021-10-28] MEDS: Levothyroxine 50 MCG Tab PO SCH (05:14)
[2021-10-28] MEDS: Metoprolol Tartrate 50 MG Tab PO SCH (05:15)
[2021-10-28] MEDS: Insulin Lispro 100 Unit/ML 3 ML KwikPen SUBCUT SCH ×2 (06:29→12:24)
[2021-10-28] MEDS: Acetaminophen 325 MG Tab PO PRN (06:29)
[2021-10-28] MEDS: Tiotropium Bromide 4 GM Inhalation Spray (2.5mcg/1 dose; 10 doses) INH SCH (08:28)
[2021-10-28] MEDS: Diltiazem 180 MG Cap.CD PO SCH (09:41)
[2021-10-28] MEDS: metFORMIN 500 MG Tab PO SCH (09:41)
[2021-10-28] MEDS: Gabapentin 300 MG Cap PO SCH (09:41)
[2021-10-28] MEDS: predniSONE 20 MG Tab PO SCH (09:42)
[2021-10-28] MEDS: Apixaban 2.5 MG Tab PO SCH (09:42)
[2021-10-28] MEDS: Saccharomyces Boulardii (Probiotic) 250 MG Cap PO SCH (09:42)
[2021-10-28] MEDS: Anastrozole 1 MG Tab PO SCH (09:42)
[2021-10-28] MEDS: Losartan 25 MG Tab PO SCH (09:42)
[2021-10-28] MEDS: Furosemide 20 MG/2 ML VIAL IVPUSH SCH (09:43)
[2021-10-28] MEDS: Rosuvastatin 10 MG Tab PO SCH (09:43)
[2021-10-28 11:06] VITALS: BP 128/83
[2021-10-28 12:25] VITALS: PULSE 126
[2021-10-28] MEDS: Digoxin 125 MCG Tab PO SCH (12:25)
== END 2021-10-28 14:15 | disposition home or self-care (01) | DRG 813 ==
LOC: JD.ED 11:26 → JD.MS 14:38
PROVIDERS: ADMIT Pediatrics; ATTEND Pediatrics
DX: L03.119 Cellulitis of unspecified part of limb (principal); D69.0 Allergic purpura; Q21.1 Atrial septal defect; J44.1 Chronic obstructive pulmonary disease with (acute) exacerbation; E46 Unspecified protein-calorie malnutrition; J98.11 Atelectasis; I73.9 Peripheral vascular disease, unspecified; Z86.718 Personal history of other venous thrombosis and embolism; I48.91 Unspecified atrial fibrillation; H54.7 Unspecified visual loss; H91.90 Unspecified hearing loss, unspecified ear; N64.4 Mastodynia; E78.00 Pure hypercholesterolemia, unspecified; I11.0 Hypertensive heart disease with heart failure; I50.9 Heart failure, unspecified; I48.0 Paroxysmal atrial fibrillation; I34.0 Nonrheumatic mitral (valve) insufficiency; G47.30 Sleep apnea, unspecified; K21.9 Gastro-esophageal reflux disease without esophagitis; R32 Unspecified urinary incontinence; G89.29 Other chronic pain; Z91.048 Other nonmedicinal substance allergy status; M54.9 Dorsalgia, unspecified; Z79.51 Long term (current) use of inhaled steroids; Z79.52 Long term (current) use of systemic steroids; M19.90 Unspecified osteoarthritis, unspecified site; M81.0 Age-related osteoporosis without current pathological fracture; G25.81 Restless legs syndrome; F03.90 Unspecified dementia, unspecified severity, without behavioral disturbance, psychotic disturbance, mood disturbance, and anxiety; F41.9 Anxiety disorder, unspecified; F32.A Depression, unspecified; Z96.659 Presence of unspecified artificial knee joint; K59.03 Drug induced constipation; E66.01 Morbid (severe) obesity due to excess calories; M10.9 Gout, unspecified; E03.9 Hypothyroidism, unspecified; E66.9 Obesity, unspecified; M85.80 Other specified disorders of bone density and structure, unspecified site; Z85.850 Personal history of malignant neoplasm of thyroid; Z85.3 Personal history of malignant neoplasm of breast; Z86.16 Personal history of COVID-19; Z86.19 Personal history of other infectious and parasitic diseases; Z99.81 Dependence on supplemental oxygen; Z90.710 Acquired absence of both cervix and uterus; Z91.09 Other allergy status, other than to drugs and biological substances; Z79.899 Other long term (current) drug therapy; Z79.01 Long term (current) use of anticoagulants; Z79.890 Hormone replacement therapy; Z86.73 Personal history of transient ischemic attack (TIA), and cerebral infarction without residual deficits; Z98.49 Cataract extraction status, unspecified eye; Z90.49 Acquired absence of other specified parts of digestive tract; Z20.822 Contact with and (suspected) exposure to COVID-19; E80.4 Gilbert syndrome; Z68.39 Body mass index [BMI] 39.0-39.9, adult; E11.9 Type 2 diabetes mellitus without complications
CPT/HCPCS: 36415; 71046; 80053; 81001; 83605; 83880; 84484; 85007; 85027; 85610; 86140; 87040 ×2; 96365; 96375; 99285; A9270; J0696; J3370 ×2; J7030; J7040; U0002; 36600; 71045; 71045-26; 82803; 82947; 83036; 83540; 83735; 84075; 84080; 84145; 85025; 85379; 85652; 86038; 86146; 86376; 93005; 93306; 94640; 94760; 94761; 97116-GP; 97162-GP; 97530-GP; 97597-GP; J1815; J1940; J2543; J3490; J7120; J7512

== ENCOUNTER 2021-11-08 14:07 | Emergency (ER) | payer MEDICARE, BC ==
[2021-11-08] MEDS ORDERED: Sodium Chloride 0.9% 500 ML IV ONE ×2 (14:54→17:39)
[2021-11-08 15:50] VITALS: BP 96/55; PULSE 108
[2021-11-08 15:51] LABS: CORONAVIRUS COVID-19 NAA NEGATIVE (NEGATIVE)
[2021-11-08] MEDS ORDERED: Cefepime 2 GM in Sodium Chloride 0.9% 50 ML IV ONE (15:54)
[2021-11-08] MEDS ORDERED: Magnesium Sulfate/Water 2 GM in Premix Bag 1 BAG IV ONE (15:55)
[2021-11-08] MEDS ORDERED: Sodium Chloride 0.9% 10 ML Syringe FLUSH ONE (16:01)
[2021-11-08] MEDS ORDERED: Sodium Chloride 0.9% 100 ML IV SCH (16:15)
[2021-11-08] MEDS: Iopamidol 755 Mg/ML 100 ML Bottle IVPUSH ONE ×2 (16:28→16:30)
[2021-11-08] MEDS ORDERED: Vancomycin 2 GM in Sodium Chloride 0.9% 500 ML IV ONE (18:15)
== END 2021-11-08 19:45 ==
LOC: JD.ED 14:07
DX: L08.9 Local infection of the skin and subcutaneous tissue, unspecified (principal); E83.42 Hypomagnesemia; E80.6 Other disorders of bilirubin metabolism; J44.9 Chronic obstructive pulmonary disease, unspecified; I11.0 Hypertensive heart disease with heart failure; I50.9 Heart failure, unspecified; E78.00 Pure hypercholesterolemia, unspecified; I48.91 Unspecified atrial fibrillation; K21.9 Gastro-esophageal reflux disease without esophagitis; Z91.048 Other nonmedicinal substance allergy status; Z86.73 Personal history of transient ischemic attack (TIA), and cerebral infarction without residual deficits; Z79.84 Long term (current) use of oral hypoglycemic drugs; Z79.899 Other long term (current) drug therapy; Z20.822 Contact with and (suspected) exposure to COVID-19
CPT/HCPCS: 0241U; 36415; 71045; 71275; 74177; 80053; 82009; 83605; 83690; 83735; 85025; 85610; 86140; 87040; 96365; 96366; 96367; 96375; 99285; J0692; J3370; J3475; J3490; J7030; J7040; Q9967